=== PATIENT | female | born 1970 | race Caucasian/White ===

== ENCOUNTER 2020-08-24 16:15 | Inpatient (IN) | payer BC, OTHER ==
[2020-08-24] MEDS ORDERED: LORazepam 2 MG/ML INJ IV STA ×4 (16:43→17:45)
[2020-08-24] MEDS ORDERED: SODIUM CHLORIDE 0.9% 500 ML 500 ML IV STA (16:43)
[2020-08-24 17:03] LABS: Glucose,Whole Blood 177 mg/dL (75-99)
--- NOTE | 2020-08-24 17:14 | ED ---
Alcohol HPI <Graham Florence - Last Filed: 08/24/20 19:03> - General Source: EMS Mode of arrival: EMS Limitations: no limitations <Katia Mccall - Last Filed: 08/24/20 19:16> - General Chief Complaint: Alcohol Stated Complaint: Alcohol Withdrawal Time Seen by Provider: 08/24/20 16:30 - History of Present Illness Initial Comments: Patient is a 50-year-old female with history of alcohol abuse, thyroid disorder, presenting to the emergency department via EMS for possible EtOH withdrawal. Patient normally drinks a pint of liquor daily, her last complaint was approximately 2-3 days ago. She did have a half a beer today. He is complaining of sweating, shaking and shortness of breath for the last 2 days. She denies any fevers, no specific area pain, no chest pain, no abdominal pain. She has been nauseous, no vomiting. She denies any other drug use. She denies being secondary to hysterectomy. She has no further complaints. Upon arrival to the ER, she is afebrile, pulse is 75, respiratory rate 26, BP is elevated at 133/119, 98% on 2 L. (Katia Mccall) - Related Data Home Medications Medication Instructions Recorded Confirmed Levothyroxine Sodium [Synthroid] 100 mg PO DAILY 12/24/14 12/24/14 Baclofen [Lioresal] 10 mg PO BID PRN 08/24/20 08/24/20 Omeprazole [PriLOSEC] 40 mg PO DAILY 08/24/20 08/24/20 methocarbamoL [Robaxin] 750 mg PO TID PRN 08/24/20 08/24/20 Allergies Allergy/AdvReac Type Severity Reaction Status Date / Time No Known Allergies Allergy Verified 08/24/20 19:02 Review of Systems ROS Other: All systems not noted in ROS Statement are negative. <Graham Florence - Last Filed: 08/24/20 19:03> ROS Other: All systems not noted in ROS Statement are negative. <Katia Mccall - Last Filed: 08/24/20 19:16> ROS Statement: Those systems with pertinent positive or pertinent negative responses have been documented in the HPI. Past Medical History Past Medical History: Thyroid Disorder History of Any Multi-Drug Resistant Organisms: None Reported Past Surgical History: Hysterectomy Past Psychological History: Depression Smoking Status: Former smoker, Never smoker Past Alcohol Use History: Abuse Past Drug Use History: None Reported <Katia Mccall - Last Filed: 08/24/20 19:16> General Exam Limitations: no limitations <Katia Mccall - Last Filed: 08/24/20 19:16> - General Exam Comments Initial Comments: GENERAL: Patient has disheveled appearance, tremors, diaphoretic, and moderate distress, jaundiced appearance. HEAD: Atraumatic, normocephalic. EYES: Pupils equal round and reactive to light, extraocular movements intact, bilateral sclera icterus conjunctiva are normal. Eyelids were unremarkable. ENT: TMs normal, nares patent, oropharynx clear without exudates. Dry mucous mem branes. NECK: Normal range of motion, supple without lymphadenopathy or JVD. LUNGS: slightly rapid respirations. Breath sounds clear to auscultation bilaterally and equal. No wheezes rales or rhonchi. HEART: Tachy rate and rhythm without murmurs, rubs or gallops. ABDOMEN: Soft, nontender, normoactive bowel sounds. No guarding, no rebound. No masses appreciated. : Deferred MUSCULOSKELETAL: Normal extremities with adequate strength and normal range of motion, no pitting or edema. No clubbing or cyanosis. NEUROLOGICAL: Patient is alert and oriented x 3. Motor and sensory are also intact. Cranial nerves II through XII grossly intact. Symmetrical smile. Normal speech. PSYCH: Normal mood, normal affect. SKIN: Jaundice, Diaphoretic, Warm, normal turgor, no rashes or lesions noted. (Katia Mccall) Course Vital Signs 08/24/20 08/24/20 08/24/20 16:22 17:34 17:56 Temperature 98.7 F Pulse Rate 75 137 H 129 H Respiratory 26 H 28 H 26 H Rate Blood Pressure 133/119 149/45 124/100 O2 Sat by Pulse 98 98 100 Oximetry 08/24/20 08/24/20 18:30 19:06 Temperature 98.1 F Pulse Rate 115 H 120 H Respiratory 18 20 Rate Blood Pressure 92/56 100/73 O2 Sat by Pulse 97 97 Oximetry Medical Decision Making - Lab Data Result diagrams: 08/24/20 17:00 08/24/20 17:00 <Graham Florence - Last Filed: 08/24/20 19:03> - Lab Data Result diagrams: 08/24/20 17:00 08/24/20 17:00 <Katia Mccall - Last Filed: 08/24/20 19:16> - Medical Decision Making Patient reevaluated and reexamined by myself, Dr. Florence. I do agree with the findings. This includes diagnostic interpretation and treatment plan. Patient does have jaundice appearance with scleral icterus. No focal deficits on exam. Patient does appeared dry clinically on oral examination. Patient is oriented 3. Patient reportedly has not been feeling well for a few days and stopped eating and drinking much. Patient also stopped taking alcohol at that time. Patient presents with new-onset liver disease as well as dehydration and electrolyte abnormality. Case was discussed with Dr. Cabrera who would like to admit his patient and agrees with ICU admission. Case also discussed with Dr. Santos, who will consult. Dr. Cabrera did also request adding on CT of the abdomen pelvis. (Graham Florence) Patient is a 50-year-old female presenting to the ER via EMS for alcohol withdrawal as, she arrived diaphoretic, tremors. She is jaundice with scleral icterus. Patient's last drink was 2-3 days ago. She has not been eating or drinking. She does admit to a half a beer today. Patient required 8 mg of Ativan to stop tremors. Patient had critical labs of a lactic greater than 24, potassium is 2.7, magnesium is 1.0, chloride is 72. White count is 13.6, liver enzymes are elevated, total bilirubin is 10.6. Urine is a brown, cloudy 3+ bilirubin, many bacteria. Urine tox is negative, serum alcohol is 19, rapid Covid is positive. Chest x-ray shows some mild atelectasis, no other acute process. Patient was given a total of approximately a liter and half of fluids, started on magnesium as well as potassium, maintenance fluids. Patient will be admitted to the ICU for new-onset liver disease, hypokalemia, hypo-magnesium. Ativan protocol in place. Patient accepted by Dr. Cabrera as well as Dr. Morales. We'll also consult GI, CT of the abdomen and pelvis is pending at this time. Patient's vital signs have remained stable, she is resting comfortably. Case discussed in detail with Dr. Florence. (Katia Mccall) - Lab Data Lab Results 08/24/20 08/24/20 08/24/20 Range/Units 16:51 17:00 17:00 WBC 13.6 H (3.8-10.6) k/uL RBC 3.57 L (3.80-5.40) m/uL Hgb 12.8 (11.4-16.0) gm/dL Hct 38.9 (34.0-46.0) % MCV 108.9 H (80.0-100.0) fL MCH 35.8 H (25.0-35.0) pg MCHC 32.9 (31.0-37.0) g/dL RDW 15.5 (11.5-15.5) % Plt Count 181 (150-450) k/uL MPV 12.1 Neutrophils % (Manual) 83 % Band Neuts % (Manual) 6 % Lymphocytes % (Manual) 9 % Monocytes % (Manual) 2 % Neutrophils # (Manual) 12.10 H (1.3-7.7) k/uL Lymphocytes # (Manual) 1.22 (1.0-4.8) k/uL Monocytes # (Manual) 0.27 (0-1.0) k/uL Nucleated RBCs 0 (0-0) /100 WBC Manual Slide Review Performed Macrocytosis Marked A PT 15.6 H (9.0-12.0) sec INR 1.6 H (<1.2) APTT 30.3 H (22.0-30.0) sec Sodium (137-145) mmol/L Potassium (3.5-5.1) mmol/L Chloride (98-107) mmol/L Carbon Dioxide (22-30) mmol/L Anion Gap mmol/L BUN (7-17) mg/dL Creatinine (0.52-1.04) mg/dL Est GFR (CKD-EPI)AfAm (>60 ml/min/1.73 sqM) Est GFR (CKD-EPI)NonAf (>60 ml/min/1.73 sqM) Glucose (74-99) mg/dL POC Glucose (mg/dL) 177 H (75-99) mg/dL POC Glu Marketing Database Consultant ID Dawna Leija Plasma Lactic Acid Bull (0.7-2.0) mmol/L Calcium (8.4-10.2) mg/dL Magnesium (1.6-2.3) mg/dL Total Bilirubin (0.2-1.3) mg/dL AST (14-36) U/L ALT (4-34) U/L Alkaline Phosphatase (38-126) U/L Total Protein (6.3-8.2) g/dL Albumin (3.5-5.0) g/dL Amylase (30-110) U/L Lipase (23-300) U/L Urine Color Urine Appearance (Clear) Urine pH (5.0-8.0) Ur Specific [place] (1.001-1.035) Urine Protein (Negative) Urine Glucose (UA) (Negative) Urine Ketones (Negative) Urine Blood (Negative) Urine Nitrite (Negative) Urine Bilirubin (Negative) Urine Urobilinogen (<2.0) mg/dL Ur Leukocyte Esterase (Negative) Urine RBC (0-5) /hpf Urine WBC (0-5) /hpf Ur Squamous Epith Cells (0-4) /hpf Urine Bacteria (None) /hpf Hyaline Casts (0-2) /lpf Urine Mucus (None) /hpf Urine Opiates Screen (NotDetected) Ur Oxycodone Screen (NotDetected) Urine Methadone Screen (NotDetected) Ur Propoxyphene Screen (NotDetected) Ur Barbiturates Screen (NotDetected) U Tricyclic Antidepress (NotDetected) Ur Phencyclidine Scrn (NotDetected) Ur Amphetamines Screen (NotDetected) U Methamphetamines Scrn (NotDetected) U Benzodiazepines Scrn (NotDetected) Urine Cocaine Screen (NotDetected) U Marijuana (THC) Screen (NotDetected) Serum Alcohol mg/dL Coronavirus (PCR) (Not Detectd) 08/24/20 08/24/20 08/24/20 Range/Units 17:00 17:00 17:00 WBC (3.8-10.6) k/uL RBC (3.80-5.40) m/uL Hgb (11.4-16.0) gm/dL Hct (34.0-46.0) % MCV (80.0-100.0) fL MCH (25.0-35.0) pg MCHC (31.0-37.0) g/dL RDW (11.5-15.5) % Plt Count (150-450) k/uL MPV Neutrophils % (Manual) % Band Neuts % (Manual) % Lymphocytes % (Manual) % Monocytes % (Manual) % Neutrophils # (Manual) (1.3-7.7) k/uL Lymphocytes # (Manual) (1.0-4.8) k/uL Monocytes # (Manual) (0-1.0) k/uL Nucleated RBCs (0-0) /100 WBC Manual Slide Review Macrocytosis PT (9.0-12.0) sec INR (<1.2) APTT (22.0-30.0) sec Sodium 122 L (137-145) mmol/L Potassium 2.7 L* (3.5-5.1) mmol/L Chloride 72 L* (98-107) mmol/L Carbon Dioxide 12 L (22-30) mmol/L Anion Gap 38 mmol/L BUN 3 L (7-17) mg/dL Creatinine 0.97 (0.52-1.04) mg/dL Est GFR (CKD-EPI)AfAm 78 (>60 ml/min/1.73 sqM) Est GFR (CKD-EPI)NonAf 68 (>60 ml/min/1.73 sqM) Glucose 156 H (74-99) mg/dL POC Glucose (mg/dL) (75-99) mg/dL POC Glu Marketing Database Consultant ID Plasma Lactic Acid Bull >24.0 H* (0.7-2.0) mmol/L Calcium 8.1 L (8.4-10.2) mg/dL Magnesium 1.0 L (1.6-2.3) mg/dL Total Bilirubin 10.6 H (0.2-1.3) mg/dL AST 337 H (14-36) U/L ALT 86 H (4-34) U/L Alkaline Phosphatase 249 H (38-126) U/L Total Protein 7.4 (6.3-8.2) g/dL Albumin 4.0 (3.5-5.0) g/dL Amylase 33 (30-110) U/L Lipase 70 (23-300) U/L Urine Color Urine Appearance (Clear) Urine pH (5.0-8.0) Ur Specific [place] (1.001-1.035) Urine Protein (Negative) Urine Glucose (UA) (Negative) Urine Ketones (Negative) Urine Blood (Negative) Urine Nitrite (Negative) Urine Bilirubin (Negative) Urine Urobilinogen (<2.0) mg/dL Ur Leukocyte Esterase (Negative) Urine RBC (0-5) /hpf Urine WBC (0-5) /hpf Ur Squamous Epith Cells (0-4) /hpf Urine Bacteria (None) /hpf Hyaline Casts (0-2) /lpf Urine Mucus (None) /hpf Urine Opiates Screen (NotDetected) Ur Oxycodone Screen (NotDetected) Urine Methadone Screen (NotDetected) Ur Propoxyphene Screen (NotDetected) Ur Barbiturates Screen (NotDetected) U Tricyclic Antidepress (NotDetected) Ur Phencyclidine Scrn (NotDetected) Ur Amphetamines Screen (NotDetected) U Methamphetamines Scrn (NotDetected) U Benzodiazepines Scrn (NotDetected) Urine Cocaine Screen (NotDetected) U Marijuana (THC) Screen (NotDetected) Serum Alcohol 19 mg/dL Coronavirus (PCR) (Not Detectd) 08/24/20 08/24/20 08/24/20 Range/Units 17:55 17:55 17:55 WBC (3.8-10.6) k/uL RBC (3.80-5.40) m/uL Hgb (11.4-16.0) gm/dL Hct (34.0-46.0) % MCV (80.0-100.0) fL MCH (25.0-35.0) pg MCHC (31.0-37.0) g/dL RDW (11.5-15.5) % Plt Count (150-450) k/uL MPV Neutrophils % (Manual) % Band Neuts % (Manual) % Lymphocytes % (Manual) % Monocytes % (Manual) % Neutrophils # (Manual) (1.3-7.7) k/uL Lymphocytes # (Manual) (1.0-4.8) k/uL Monocytes # (Manual) (0-1.0) k/uL Nucleated RBCs (0-0) /100 WBC Manual Slide Review Macrocytosis PT (9.0-12.0) sec INR (<1.2) APTT (22.0-30.0) sec Sodium (137-145) mmol/L Potassium (3.5-5.1) mmol/L Chloride (98-107) mmol/L Carbon Dioxide (22-30) mmol/L Anion Gap mmol/L BUN (7-17) mg/dL Creatinine (0.52-1.04) mg/dL Est GFR (CKD-EPI)AfAm (>60 ml/min/1.73 sqM) Est GFR (CKD-EPI)NonAf (>60 ml/min/1.73 sqM) Glucose (74-99) mg/dL POC Glucose (mg/dL) (75-99) mg/dL POC Glu Marketing Database Consultant ID Plasma Lactic Acid Bull (0.7-2.0) mmol/L Calcium (8.4-10.2) mg/dL Magnesium (1.6-2.3) mg/dL Total Bilirubin (0.2-1.3) mg/dL AST (14-36) U/L ALT (4-34) U/L Alkaline Phosphatase (38-126) U/L Total Protein (6.3-8.2) g/dL Albumin (3.5-5.0) g/dL Amylase (30-110) U/L Lipase (23-300) U/L Urine Color Dark Brown Urine Appearance Cloudy H (Clear) Urine pH 5.5 (5.0-8.0) Ur Specific [place] 1.015 (1.001-1.035) Urine Protein 1+ H (Negative) Urine Glucose (UA) Negative (Negative) Urine Ketones Negative (Negative) Urine Blood Moderate H (Negative) Urine Nitrite Negative (Negative) Urine Bilirubin 3+ H (Negative) Urine Urobilinogen 8.0 (<2.0) mg/dL Ur Leukocyte Esterase Small H (Negative) Urine RBC 1 (0-5) /hpf Urine WBC 59 H (0-5) /hpf Ur Squamous Epith Cells 2 (0-4) /hpf Urine Bacteria Many H (None) /hpf Hyaline Casts 215 H (0-2) /lpf Urine Mucus Occasional H (None) /hpf Urine Opiates Screen Not Detected (NotDetected) Ur Oxycodone Screen Not Detected (NotDetected) Urine Methadone Screen Not Detected (NotDetected) Ur Propoxyphene Screen Not Detected (NotDetected) Ur Barbiturates Screen Not Detected (NotDetected) U Tricyclic Antidepress Not Detected (NotDetected) Ur Phencyclidine Scrn Not Detected (NotDetected) Ur Amphetamines Screen Not Detected (NotDetected) U Methamphetamines Scrn Not Detected (NotDetected) U Benzodiazepines Scrn Not Detected (NotDetected) Urine Cocaine Screen Not Detected (NotDetected) U Marijuana (THC) Screen Not Detected (NotDetected) Serum Alcohol mg/dL Coronavirus (PCR) Detected A (Not Detectd) Critical Care Time Critical Care Time: Yes Total Critical Care Time: 40 (Alcohol withdrawal, presented with severe tremors, requiring 8 of Ativan, lactic acidosis of greater than 24, hypokalemia, hypo- magnesium, patient was admitted to the ICU.) <Katia Mccall - Last Filed: 08/24/20 19:16> Disposition <Graham Florence - Last Filed: 08/24/20 19:03> Decision Date: 08/24/20 Decision Time: 19:07 <Katia Mccall - Last Filed: 08/24/20 19:16> Clinical Impression: Hypomagnesemia, Alcohol withdrawal syndrome, Hypokalemia, Lactic acidosis, COVID-19 Disposition: ADMITTED IP TO THIS [facility] Condition: Fair Referrals: Matt Ch Jr, DO [Primary Care Provider] - 1-2 days
[2020-08-24 17:22] LABS: Calcium 8.1 mg/dL (8.4-10.2); Total Bilirubin 10.6 mg/dL (0.2-1.3); Total Protein 7.4 g/dL (6.3-8.2)
[2020-08-24 17:29] LABS: INR 1.6 (<1.2); Partial Thromboplastin Time 30.3 sec (22.0-30.0); Prothrombin Time 15.6 sec (9.0-12.0)
[2020-08-24 17:31] LABS: Potassium 2.7 mmol/L (3.5-5.1)
[2020-08-24] MEDS ORDERED: SODIUM CHLORIDE 0.9% 1,000 ML IV STA (17:35)
[2020-08-24 17:40] LABS: HCT 38.9 % (34.0-46.0); HGB 12.8 gm/dL (11.4-16.0); MCH 35.8 pg (25.0-35.0); MCHC 32.9 g/dL (31.0-37.0); MCV 108.9 fL (80.0-100.0); Macrocytosis Marked; Mean Platelet Volume 12.1; Platelet Count 181 k/uL (150-450); RBC 3.57 m/uL (3.80-5.40); RDW 15.5 % (11.5-15.5); WBC 13.6 k/uL (3.8-10.6)
[2020-08-24] MEDS: POTASSIUM CHLORIDE 20 MEQ in WATER FOR INJECTION 1 100ML.BAG IVPB SCH ×2 (17:47→20:33)
[2020-08-24 18:01] LABS: Band Neutrophils % 6 %; Lymphocytes # (M) 1.22 k/uL (1.0-4.8); Monocytes # (M) 0.27 k/uL (0-1.0); Neutrophils % (M) 83 %; Nucleated Red Blood Cells 0 /100 WBC (0-0); Total Cells Counted 100
[2020-08-24 18:17] LABS: Appearance,Urine Cloudy (Clear); Bacteria,Urine Many /hpf; Bilirubin,Urine 3+ (Negative); Blood,Urine Moderate (Negative); Color,Urine Dark Brown; Glucose,Urine (UA) Negative (Negative); Hyaline Casts,Urine 215 /lpf (0-2); Ketones,Urine Negative (Negative); Leukocyte Esterase,Urine Small (Negative); Mucus,Urine Occasional /hpf; Nitrite,Urine Negative (Negative); PH, Urine 5.5 (5.0-8.0); Protein,Urine 1+ (Negative); RBC,Urine 1 /hpf (0-5); Specific Gravity,Urine 1.015 (1.001-1.035); Squamous Epithelial Cell,Urine 2 /hpf (0-4); WBC,Urine 59 /hpf (0-5)
[2020-08-24 18:39] LABS: Amphetamine Screen,Urine Not Detected (NotDetected); Barbiturate Screen,Urine Not Detected (NotDetected); Benzodiazepines Screen,Urine Not Detected (NotDetected); Cocaine Screen,Urine Not Detected (NotDetected); Methadone Screen, Urine Not Detected (NotDetected); Opiate Screen,Urine Not Detected (NotDetected); Oxycodone Screen, Urine Not Detected (NotDetected); Phencyclidine Screen,Urine Not Detected (NotDetected); Tricyclic Antidepressant,Urine Not Detected (NotDetected); Urn Cannabinoid Scrn Not Detected (NotDetected)
[2020-08-24] MEDS ORDERED: Magnesium Replacement Protocol 1 EACH MISC MISCELLANE PRN (18:39)
--- NOTE | 2020-08-24 18:41 | XR ---
EXAMINATION TYPE: XR chest 1V DATE OF EXAM: 08/24/2020 COMPARISON: 12/24/2014 HISTORY: Short of breath There is some elevation of the right diaphragm. There is no heart failure. Heart size is normal. Ther e are chest leads. Bony thorax is intact. IMPRESSION: There is new mild atelectasis right lung base compared to old exam. No heart failure.
[2020-08-24] MEDS ORDERED: NALOXONE 0.4 MG/ML 1 ML VIAL IV PRN (19:00)
[2020-08-24] MEDS: MAGNESIUM SULFATE-D5W PMX 1 GM in DEXTROSE/WATER 1 100ML.BAG IVPB SCH ×3 (19:06→23:14)
[2020-08-24] MEDS ORDERED: THIAMINE 100 MG/ML 2 ML VIAL IM STA (19:06)
[2020-08-24] MEDS ORDERED: LORazepam 2 MG/ML INJ IV PRN (19:06)
--- NOTE | 2020-08-24 20:08 | CT ---
EXAMINATION TYPE: CT abdomen pelvis w con DATE OF EXAM: 08/24/2020 COMPARISON: 07/20/2012 HISTORY: abdominal pain, liver failure CT DLP: 947 mGycm Automated exposure control for dose reduction was used. CONTRAST: Performed with IV Contrast, patient injected with 100 mL of Isovue 300. Images obtained from the diaphragm to the floor the pelvis with IV contrast. There is mild interstitial infiltrate and subsegmental atelectasis at the lung bases. Heart size is n ormal. There is no pericardial effusion. There is significant hypodensity throughout the liver related to fatty infiltration. Spleen is intact . Stomach is intact. There is no evidence of pancreatic mass. Gallbladder appears normal. There is no adrenal mass. Knee show satisfactory contrast opacification. There is no hydronephrosis. Delayed images show very little contrast excretion into the renal collecting systems. There is no ret roperitoneal adenopathy. Ureters are not dilated. There is Gonzalez catheter in the urinary bladder. The re is no inguinal hernia. There is no mesenteric edema. There is no ascites or free air. Appendix is posterior and appears norm al. There is no sign of a bowel obstruction. There is minimal stranding in the paracolic gutters. The lumbar vertebra have normal alignment. There is no compression fracture. The bony pelvis is intact. Hip joints are intact. IMPRESSION: Significant fatty replacement of the liver which is a change compared to old exam. Minimal fluid in t he paracolic gutters. Normal appendix. Decreased contrast excretion on the delayed images that is suggestive of some degree of renal failure . There is interstitial infiltrates and atelectasis at the lung bases which is new compared to old exam .
[2020-08-24 20:19] LABS: Glucose,Whole Blood 144 mg/dL (75-99)
[2020-08-24] MEDS: SODIUM CHLORIDE 0.9% 1,000 ML IV SCH (20:32)
--- NOTE | 2020-08-24 22:10 | CT ---
EXAMINATION TYPE: CT brain wo con DATE OF EXAM: 08/24/2020 COMPARISON: None HISTORY: ams, slurred speech CT DLP: 1099.4 mGycm Automated exposure control for dose reduction was used. Ventricles have normal size. There is no mass effect nor midline shift. There is no sign of intracran ial hemorrhage. There is some mild white matter hypodensity in the sub cortical cerebral hemispheres. IMPRESSION: No acute intracranial abnormality. Mild white matter hypodensity could relate to chronic small vessel ischemia or demyelinating disease.
[2020-08-24] MEDS ORDERED: MAGNESIUM SULFATE-D5W PMX 1 GM in DEXTROSE/WATER 1 100ML.BAG IVPB ONE (23:15)
[2020-08-24] MEDS: LORazepam 2 MG/ML INJ IV PRN (23:37)
[2020-08-25 03:23] LABS: ALT 70 U/L (4-34); AST 285 U/L (14-36); African American GFR (CKD) >90 (>60 ml/min/1.73 sqM); Albumin 2.9 g/dL (3.5-5.0); Alkaline Phosphatase 185 U/L (38-126); Anion Gap 7 mmol/L; Blood Urea Nitrogen 3 mg/dL (7-17); C Reactive Protein 25.1 mg/L (<10.0); Carbon Dioxide 34 mmol/L (22-30); Chloride 83 mmol/L (98-107); Creatine Kinase 922 U/L (30-135); GGT 1220 U/L (12-43); Glucose 96 mg/dL (74-99); LDH 1119 U/L (313-618); Magnesium 1.9 mg/dL (1.6-2.3); Non-African American GFR(CKD) >90 (>60 ml/min/1.73 sqM); Sodium 124 mmol/L (137-145); Total Bilirubin 9.6 mg/dL (0.2-1.3)
[2020-08-25 03:34] LABS: Potassium 2.1 mmol/L (3.5-5.1)
[2020-08-25 03:38] LABS: Basophils # (A) 0.1 k/uL (0-0.2); Basophils % (A) 1 %; Eosinophils % (A) 1 %; HCT 29.6 % (34.0-46.0); HGB 10.6 gm/dL (11.4-16.0); Lymphocytes # (A) 1.1 k/uL (1.0-4.8); Lymphocytes % (A) 16 %; MCH 37.1 pg (25.0-35.0); MCHC 35.9 g/dL (31.0-37.0); Macrocytosis Slight; Mean Platelet Volume 10.4; Monocytes # (A) 0.3 k/uL (0-1.0); Monocytes % (A) 4 %; Neutrophils # (A) 5.5 k/uL (1.3-7.7); Neutrophils % (A) 77 %; RBC 2.86 m/uL (3.80-5.40); RDW 14.9 % (11.5-15.5); WBC 7.1 k/uL (3.8-10.6)
[2020-08-25 03:41] LABS: MCV 103.4 fL (80.0-100.0); Platelet Count 132 k/uL (150-450)
[2020-08-25] MEDS ORDERED: Potassium Replacement Protocol 1 EACH MISC MISCELLANE PRN ×2 (03:42→16:51)
[2020-08-25] MEDS: POTASSIUM CHLORIDE 10 MEQ in WATER FOR INJECTION 1 100ML.BAG IVPB SCH ×11 (03:48→23:26)
[2020-08-25] MEDS: MAGNESIUM SULFATE-D5W PMX 1 GM in DEXTROSE/WATER 1 100ML.BAG IVPB SCH ×2 (04:23→05:00)
[2020-08-25] MEDS: THIAMINE 100 MG TAB PO SCH ×2 (07:11→17:19)
[2020-08-25] MEDS: SODIUM CHLORIDE 0.9% 1,000 ML IV SCH ×2 (08:04→21:14)
[2020-08-25] MEDS: LORazepam 2 MG/ML INJ IV PRN (08:04)
[2020-08-25] MEDS: MORPHINE SULFATE 2 MG/ML SYRINGE IV PRN ×3 (08:47→17:21)
[2020-08-25] MEDS: PANTOPRAZOLE 40 MG/10 ML VIAL IVP SCH ×2 (10:40→21:12)
[2020-08-25] MEDS: LEVOTHYROXINE IVP 100 MCG/5 ML VIAL IV SCH (10:40)
[2020-08-25] MEDS: ENOXAPARIN 30 MG/0.3 ML SYRINGE SQ SCH (10:40)
--- NOTE | 2020-08-25 10:45 | P.CNNES ---
History of Present Illness Consult date: 08/25/20 Requesting physician: Matt Ch Jr Reason for Consult: altered mental status History of Present Illness: This is a 50-year-old woman with medical history of all call abuse and hypothyroidism that presented emergency department on 08/24/2020 for possible alcohol withdrawal. Patient stated she drinks alcohol for years. She drinks a pint of liquor daily and her last drink was about to 2-3 days ago. She came into the hospital complaining of sweating, shaken and shortness of breath for the last 2 days. He has been feeling nauseous but no vomiting. Patient denies of any fever. According to the nurse her felt she was having slurring of the speech recently. She has not had any seizure-like activity. Patient stated she is on Synthroid for her hypothyroidism and sometimes taking Robaxin for muscle stiffness but could not tell me where. Otherwise she denies focal weakness, numbness or visual disturbance. Upon asking her if she felt she is having slurring of speech she couldn't tell me. She denies being on antiplatelets or statins. Workup in the hospital consisted of: Initial vital signs are: Blood pressure of 133/119, heart rate of 75, respiratory of 26, temperature of 88.7 Fahrenheit axillary and the pulse ox is 98% on 2 L of nasal cannula. Since the patient has been the hospital the p atient has been afebrile. CT of the head is reported as no acute intracranial abnormality. Mild white matter hypodensity could relate to chronic small vessel ischemia or edema disease. His x-rays reported as there is a new mild atelectasis right lung base compared to old exam. Heart failure. CT of the abdomen is reported as significant fatty replacement of the liver which is a change compared to old exam. Minimal fluid in the pair: Daughters. Normal appendix. Decreased contrast and excretion on the delayed images that is suggestive of some degree of renal failure. There is interstitial infiltrates and atelectasis at the lung base which is new compared to old exam. White blood cell is 13.6 on initial presentation is seems neutrophilic but repeated was 7.1. MCV is 108 and the repeat his 103 which is elevated. On initial presentation the patient sodium is 122 and the repeated today is 124 which is low system normal range is 137-145. The last sodium in our record is in 2014 and was normal and was 137. Potassium on presentation was 2.7. Glucose POC initially was 177. Plasma lact ic acid the vein was more than 24. The meclizine is low and it was 1.0. AST is 337 and the ALTs 86. Alcohol phosphatase is 249. Ammonia level. Calcium is 8.1. The total bilirubin is 10.6. Serum alcohol level was 19 is elevated but not in the toxic range. Otherwise the urine drug screen is negative. Ivey virus PCR is detected positive on 08/24/2020. In the ED the patient was given 8 milligrams of Ativan because of alcohol withdrawal Past Medical History Past Medical History: Hypertension, Thyroid Disorder History of Any Multi-Drug Resistant Organisms: None Reported Past Surgical History: Hysterectomy Past Anesthesia/Blood Transfusion Reactions: No Reported Reaction Past Psychological History: Depression Smoking Status: Former smoker Past Alcohol Use History: Abuse Past Drug Use History: None Reported Medications and Allergies Home Medications Medication Instructions Recorded Confirmed Type Levothyroxine Sodium [Synthroid] 100 mg PO DAILY 12/24/14 08/24/20 History Baclofen [Lioresal] 10 mg PO BID PRN 08/24/20 08/24/20 History Omeprazole [PriLOSEC] 40 mg PO DAILY 08/24/20 08/24/20 History methocarbamoL [Robaxin] 750 mg PO TID PRN 08/24/20 08/24/20 History Allergies Allergy/AdvReac Type Severity Reaction Status Date / Time No Known Allergies Allergy Verified 08/24/20 19:02 Physical Examination - Vital Signs Vital Signs: Vital Signs Temp Pulse Resp BP Pulse Ox 08/25/20 09:00 97 22 90/68 94 L 08/25/20 08:00 97.5 F L 100 14 100/75 93 L 08/25/20 07:00 98 18 112/67 94 L 08/25/20 06:30 98 20 110/78 95 08/25/20 06:00 85 24 99/73 94 L 08/25/20 05:30 97 24 103/72 91 L 08/25/20 05:00 100 20 103/70 99 08/25/20 04:30 94 25 H 90/53 96 08/25/20 04:00 98.3 F 109 H 10 L 93/66 94 L 08/25/20 03:30 101 H 12 91/71 95 08/25/20 03:00 96 14 90/55 94 L 08/25/20 02:30 95 9 L 98/64 96 08/25/20 02:00 98 12 91/63 96 08/25/20 01:30 97 19 108/94 96 08/25/20 01:00 86 12 94/62 96 08/25/20 00:30 100 20 97/61 96 08/25/20 00:03 100 21 97/61 95 08/25/20 00:00 98.0 F 100 15 101/66 96 08/24/20 23:46 97 08/24/20 23:30 114 H 20 95 08/24/20 23:00 102 H 20 96/68 98 08/24/20 22:30 107 H 13 90/66 96 08/24/20 22:00 102 H 14 105/91 94 L 08/24/20 21:30 97 20 97/67 100 08/24/20 21:00 98.3 F 101 H 19 140/119 97 08/24/20 20:30 108 H 21 98/73 91 L 08/24/20 19:06 98.1 F 120 H 20 100/73 97 08/24/20 18:30 115 H 18 92/56 97 08/24/20 17:56 129 H 26 H 124/100 100 08/24/20 17:34 137 H 28 H 149/45 98 08/24/20 16:22 98.7 F 75 26 H 133/119 98 Intake and Output 08/24/20 08/25/20 08/25/20 22:59 06:59 14:59 Intake Total 625 1100 350 Output Total 350 1350 250 Balance 275 -250 100 Intake: IV 625 1100 350 Magnesium Sulfate-D5w Pmx 200 200 1 gm In Dextrose/Water 1 100ml.bag @ 100 mls/hr IVPB Q1H KANDICE Rx#: [id number] Potassium Chloride 10 meq 300 200 In Water For Injection 1 100ml.bag @ 100 mls/hr IVPB Q1HR KANDICE Rx#: [id number] Potassium Chloride 20 meq 200 In Water For Injection 1 100ml.bag @ 50 mls/hr IVPB Q2H KANDICE Rx#: [id number] Sodium Chloride 0.9% 1, 225 600 150 000 ml @ 75 mls/hr IV . [id number] KANDICE Rx#:[id number] Output: Urine 350 1350 250 Other: Voiding Method Indwelling Catheter Indwelling Catheter Indwelling Catheter Weight 65.2 kg 65.2 kg GENERAL: The patient is lying in bed and is not in acute distress. She seemed mildly restless. HENT: Has scleral ictereus bilaterally. CHEST: The heart rate is regular rate rhythm. No murmurs to auscultation. LUNG: Clear to auscultation bilaterally no wheezing noted throughout. Not labored breathing. ABDOMEN/GI: Bowel sounds present in all 4 quadrants. No tenderness to palpation throughout. NEUROLOGICAL: Higher mental function: The patient is awake, alert, oriented to self, place. She knows the month but not year (she stated it was 1999 and later it was 2000. Patient is following simple commands but is slowing in following commands. No aphasia and no neglect. Cranial nerves: The pupils are round, equal and reactive to light. Visual monge are full to confrontation throughout. Extraocular movement is intact no nystagmus is noted. Facial sensation is normal to touch throughout. The facial strength is normal throughout. Hearing is normal bilaterally to hand rub. Tongue is midline and moved [id number] without any difficulty. Has mild dysarthria (Not sure if this is new or thats her baseline and patient couldn't tell me). Motor: Gait is deferred. The strength is moving all extremities above gravity and her strength was at least 4/5 but could not assess each individual muscle because of her cooperation. Normal tone and bulk. She has seemed to have mild tremors of bilateral hands. Cerebellum: Normal finger to nose bilaterally. Sensation: Sensation is normal to touch throughout. Reflexes (right/left): 2+ throughout. Plantars are downgoing bilaterally. Results Urinalysis shows that it's cloudy, nitrates negative, leukocyte esterase was small, urine white blood cell is 59, urine bacteria is many. Prognosis study: PT is 15.6, INR 1.6, PTT of 30.3. - Laboratory Findings CBC and BMP: 08/25/20 02:48 08/25/20 02:48 Abnormal Lab Findings: Abnormal Labs 08/24/20 08/24/20 08/24/20 16:51 17:00 17:00 WBC 13.6 H RBC 3.57 L Hgb Hct MCV 108.9 H MCH 35.8 H Plt Count Neutrophils # (Manual) 12.10 H Macrocytosis Marked A PT 15.6 H INR 1.6 H APTT 30.3 H Sodium Potassium Chloride Carbon Dioxide BUN Glucose POC Glucose (mg/dL) 177 H Plasma Lactic Acid Bull Calcium Magnesium Total Bilirubin GGT AST ALT Alkaline Phosphatase Ammonia Lactate Dehydrogenase Creatine Kinase C-Reactive Protein Total Protein Albumin Urine Appearance Urine Protein Urine Blood Urine Bilirubin Ur Leukocyte Esterase Urine WBC Urine Bacteria Hyaline Casts Urine Mucus Coronavirus (PCR) 08/24/20 08/24/20 08/24/20 17:00 17:00 17:00 WBC RBC Hgb Hct MCV MCH Plt Count Neutrophils # (Manual) Macrocytosis PT INR APTT Sodium 122 L Potassium 2.7 L* Chloride 72 L* Carbon Dioxide 12 L BUN 3 L Glucose 156 H POC Glucose (mg/dL) Plasma Lactic Acid Bull >24.0 H* Calcium 8.1 L Magnesium 1.0 L Total Bilirubin 10.6 H GGT AST 337 H ALT 86 H Alkaline Phosphatase 249 H Ammonia Lactate Dehydrogenase Creatine Kinase C-Reactive Protein Total Protein Albumin Urine Appearance Urine Protein Urine Blood Urine Bilirubin Ur Leukocyte Esterase Urine WBC Urine Bacteria Hyaline Casts Urine Mucus Coronavirus (PCR) 08/24/20 08/24/20 08/24/20 17:55 17:55 18:18 WBC RBC Hgb Hct MCV MCH Plt Count Neutrophils # (Manual) Macrocytosis PT INR APTT Sodium Potassium Chloride Carbon Dioxide BUN Glucose POC Glucose (mg/dL) Plasma Lactic Acid Bull Calcium Magnesium Total Bilirubin GGT AST ALT Alkaline Phosphatase Ammonia 44 H Lactate Dehydrogenase Creatine Kinase C-Reactive Protein Total Protein Albumin Urine Appearance Cloudy H Urine Protein 1+ H Urine Blood Moderate H Urine Bilirubin 3+ H Ur Leukocyte Esterase Small H Urine WBC 59 H Urine Bacteria Many H Hyaline Casts 215 H Urine Mucus Occasional H Coronavirus (PCR) Detected A 08/24/20 08/24/20 08/24/20 18:37 19:31 20:17 WBC RBC Hgb Hct MCV MCH Plt Count Neutrophils # (Manual) Macrocytosis PT INR APTT Sodium Potassium Chloride Carbon Dioxide BUN Glucose POC Glucose (mg/dL) 144 H Plasma Lactic Acid Bull 11.9 H* Calcium Magnesium Total Bilirubin GGT AST ALT Alkaline Phosphatase Ammonia Lactate Dehydrogenase Creatine Kinase C-Reactive Protein 20.8 H Total Protein Albumin Urine Appearance Urine Protein Urine Blood Urine Bilirubin Ur Leukocyte Esterase Urine WBC Urine Bacteria Hyaline Casts Urine Mucus Coronavirus (PCR) 08/24/20 08/25/20 08/25/20 23:27 02:48 02:48 WBC RBC 2.86 L Hgb 10.6 L Hct 29.6 L MCV 103.4 H D MCH 37.1 H Plt Count 132 L Neutrophils # (Manual) Macrocytosis PT INR APTT Sodium 124 L Potassium 2.1 L* Chloride 83 L Carbon Dioxide 34 H BUN 3 L Glucose POC Glucose (mg/dL) Plasma Lactic Acid Bull 3.2 H* Calcium 7.0 L Magnesium Total Bilirubin 9.6 H GGT 1220 H AST 285 H ALT 70 H Alkaline Phosphatase 185 H Ammonia Lactate Dehydrogenase 1119 H Creatine Kinase 922 H C-Reactive Protein 25.1 H Total Protein 6.0 L Albumin 2.9 L Urine Appearance Urine Protein Urine Blood Urine Bilirubin Ur Leukocyte Esterase Urine WBC Urine Bacteria Hyaline Casts Urine Mucus Coronavirus (PCR) 08/25/20 08:32 WBC RBC Hgb Hct MCV MCH Plt Count Neutrophils # (Manual) Macrocytosis PT INR APTT Sodium Potassium Chloride Carbon Dioxide BUN Glucose POC Glucose (mg/dL) Plasma Lactic Acid Bull Calcium Magnesium Total Bilirubin GGT AST ALT Alkaline Phosphatase Ammonia 37 H Lactate Dehydrogenase Creatine Kinase C-Reactive Protein Total Protein Albumin Urine Appearance Urine Protein Urine Blood Urine Bilirubin Ur Leukocyte Esterase Urine WBC Urine Bacteria Hyaline Casts Urine Mucus Coronavirus (PCR) Assessment and Plan Assessment: This is a 50-year-old woman with a significant alcohol use, drinks about a pint of liquor daily and the last drink was about to 3 days ago presented to the emergency department on 08/24/2020 for sweating, feeling shaken and shortness of breath the last 2 days. She's also been feeling nauseous but no vomiting. Toxic metabolic encephalopathy due to alcohol withdrawal, medication use (Ativan) and also due to electrolyte imbalance from the alcohol use (her altered mental status seems mild). Dysarthria (not sure if this is acute or thats her baseline) Hyponatremia due to alcohol abuse Macrocytosis due to alcohol abuse Multiple Electrolyte imbalance (hypokalemia, hypomagnesemia, hyponatremia) due to alcohol use Diaphoresis, tremor of the extremities and shortness of breath due to alcohol withdrawal Jaundice with scleral icterus due to alcohol abuse Elevated liver function tests due to alcohol abuse Pulmonary distress due to positive coated 19 as well as a component of the alcohol withdrawal Alcohol abuse with last drink about 2 days ago History of hypothyroidism Plan: Patient was given thiamine 100 mg once in the ED then was started on 100 mg 1 tablet twice a day and that's to be continued. I ordered vitamin B12 as well as folate levels/ I'll start the patient on vitamin B12 1000 g daily and folate 1 mg daily especially with a macrocytosis likely due to alcohol use. Ammonia level is ordered as a repeat for tomorrow. Regarding the dysarthria not sure if this is the patient baseline the OR this is a new. I ordered carotid duplex and lipid profile. I asked the nurse that if she gets a hold of the patient's to find out whether this is the way she talks and if it's different one of the possibilities is a because of the alcohol withdrawal another possibly a cannot rule out as a stroke. Will consider getting MRI of the brain upon the patient being stable lie flat for the MRI. I will not start the patient on aspirin or statins because stroke is not the top of my differential. As well as the hair LFTs are elevated so we'll hold off on using statins for now until her LFTs stabilize. An EEG is not warranted at this time since the patient does not have any seizure her mentation is likely toxic metabolic encephalopathy. Patient is on CIWA protocol will defer the management to the ICU as well as the primary team. Regarding the correction of the hyponatremia will defer the management to the ICU/primary team. Regarding the electrolyte imbalance would defer the management to the primary team. Patient was counseled on alcohol cessation. The plan was discussed with the patient's nurse. Thank you for the consultation. Mekhi Jorgensen M.D. Neuro-hospitalist Time with Patient: Greater than 30
--- NOTE | 2020-08-25 10:50 | CONS ---
CONSULTATION PULMONARY/CRITICAL CARE CONSULTATION: DATE OF CONSULTATION: August 25, 2020. REASON FOR CONSULTATION: Alcoholic liver disease. 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 She has a history of chronic alcohol use and chronic alcohol abuse, hypothyroidism, among other issues, as well as depression, who presents to the emergency department with possible alcohol withdrawal syndrome and alcoholic liver disease. The patient normally drinks about a pint of [place] hercules every day. She states that her last drink actually was yesterday. She drank half a beer. She came in with complaints of sweating, shaking, shortness of breath, just not feeling well. No chest pain or chest discomfort. No fevers. She does have a productive cough. The patient apparently tested positive for COVID-19 infection on August 23. She does have a history of hypothyroidism for which she takes Synthroid. The patient was evaluated in the emergency room. I was called by the emergency room physician. The patient was admitted to the ICU. I do remember this patient quite well. She used to be a nurse here in our ICU. Subsequent to that, she became a hemodialysis nurse. Her primary is Dr. Matt Ch, but she sees a nurse practitioner in Dr. Ch's office, not him. The patient had a number of abnormalities on admission, including hyperbilirubinemia, lactic acidemia, and profound electrolyte disturbance. The patient did receive some saline in the emergency room 2 L and some Ativan 8 mg. Currently, she is on 4 L nasal cannula and 0.9 at 75 mL an hour. HOME MEDICATIONS: Home medications include levothyroxine, Lioresal, omeprazole and Robaxin. ALLERGIES: Denied. MEDICAL HISTORY: Medical history includes hypothyroidism. SURGICAL HISTORY: Surgical history includes hysterectomy. SOCIAL HISTORY: Positive for previous tobacco use. Does not smoke currently. Drinks heavily currently. Denies any illicit drug use. As I mentioned, drinks about a pint of [place] hercules a day. FAMILY HISTORY: Noncontributory. REVIEW OF SYSTEMS: CONSTITUTIONAL: Weakness, tremors, shakes. NEUROLOGIC: Lightheadedness and dizziness, unsteadiness. HEENT: Negative. CARDIOVASCULAR: Negative. PULMONARY: Cough with chest congestion. GI: Nausea without vomiting. : Negative. IMMUNOLOGIC: Negative. ENDOCRINOLOGIC: Negative. DERMATOLOGIC: Negative. RHEUMATOLOGIC: Negative. PHYSICAL EXAMINATION: VITAL SIGNS: Current vital signs are reviewed. They include temperature 97.5, heart rate 100, respiratory rate 22, blood pressure 90/68, mean 75 and 4 L saturation 94%. GENERAL: Appears in no acute distress. HEENT: Examination is grossly unremarkable. Mucous membranes are dry. Nasal O2 noted. NECK: Supple. Full range of motion. No adenopathy. Neck veins are flat. CARDIOVASCULAR: Examination reveals tachycardia. Heart rate about 100 beats per minute. It is regular. S1, S2 normal. LUNGS: Reveal some coarse rhonchi. ABDOMEN: Is mildly distended. Mild tenderness on palpation. EXTREMITIES: Are intact. No edema. SKIN: Without rash. NEUROLOGIC: Examination is brief but nonfocal. She does have a slight tremor. LABS: Labs are reviewed. White count 7.1, hemoglobin 10.6, hematocrit 29.6, platelet count 132,000. PT 15.6, INR 1.6, PTT 30.3. Sodium 124, potassium 2.1, chloride 83 CO2 of 34. Anion gap 7. BUN and creatinine were 3 and 0.63. Lactic acid is down to 1.5. Calcium 7. Bilirubin is 9.6, GGT 1220, AST 285, ALT 70, alkaline phosphatase 185. Ammonia level 37. LDH is 1119. CK 922. C-reactive protein 25.1. Urine is 3+ bilirubin, small leukocyte esterase, many bacteria. Urine is cloudy and dark brown. Drug screen was negative. COVID test was positive. Serum alcohol level was 19. Microbiology is pending or negative. Chest x-ray revealed some minimal atelectasis at the lung bases right greater than left. Abdominal and pelvic CT shows significant fatty replacement of the liver, which is a new finding. Also some interstitial infiltrates at the lung bases, which is a new finding. A brain CT showed no acute abnormality. CURRENT MEDICATIONS: Current medications are reviewed. She is on Ativan per CIWA protocol, magnesium replacement, potassium replacement, p.r.n. morphine, Narcan, and her saline at 75 mL an hour along with thiamine. ASSESSMENT: 1. Severe alcoholic liver disease and probable alcoholic cirrhosis. 2. Chronic alcohol abuse, drinking 1 pint of [place] daily. 3. Lactic acidemia, improved. 4. Hyperbilirubinemia/jaundice. 5. Profound electrolyte disturbance including hypomagnesemia, hypokalemia, hyponatremia. 6. Rule out alcohol withdrawal syndrome. 7. Hypothyroidism. 8. Chronic depression. 9. Thrombocytopenia secondary to alcoholic liver disease. 10.Chronic anemia. 11.Coagulopathy of chronic liver disease. 12.Hyperammonemia. 13.Rule out urinary tract infection. PLAN: The patient will get some IV antibiotics. In addition, we will place the patient on DVT and GI prophylaxis. Additional recommendations and suggestions are forthcoming. Prognosis is guarded. We will watch closely for alcohol withdrawal syndrome and alcoholic delirium tremens. Will add back some Synthroid. No additional recommendations are made. Prognosis is guarded. MMODL / IJN: [id number] /
[2020-08-25 10:56] LABS: Ferritin 3369.4 ng/mL (10.0-291.0)
[2020-08-25] MEDS: FOLIC ACID 1 MG TAB PO SCH (11:47)
[2020-08-25] MEDS: CYANOCOBALAMIN 500 MCG TAB PO SCH (11:47)
--- NOTE | 2020-08-25 12:50 | US ---
EXAMINATION TYPE: US carotid duplex BILAT DATE OF EXAM: 08/25/2020 COMPARISON: NONE CLINICAL HISTORY: slurred speech rule out stroke. EXAM MEASUREMENTS: RIGHT: Peak Systolic Velocity (PSV) cm/sec ----- Right CCA: 60.6 ----- Right ICA: 48.2 ----- Right ECA: 69.3 ICA/CCA ratio: 0.8 RIGHT: End Diastole cm/sec ----- Right CCA: 12.9 ----- Right ICA: 11.7 ----- Right ECA: 11.8 LEFT: Peak Systolic Velocity (PSV) cm/sec ----- Left CCA: 63.4 ----- Left ICA: 43.6 ----- Left ECA: 54.1 ICA/CCA ratio: 0.7 LEFT: End Diastole cm/sec ----- Left CCA: 13.2 ----- Left ICA: 14.0 ----- Left ECA: 12.8 VERTEBRALS (direction of flow): Right Vertebral: Antegrade Left Vertebral: Antegrade Rhythm: Normal No significant stenosis grayscale, color Doppler, spectral Doppler imaging performed of the carotid a rteries. Waveform analysis does not show significant stenosis of the internal carotid arteries. IMPRESSION: No hemodynamic significant stenosis of the proximal internal carotid arteries by Doppler criteria, an indirect measurement of carotid stenosis Criteria for Assigning % of Stenosis / Diameter reduction (Estimation based on the indirect measurements of the internal carotid artery velocities (ICA PSV). 1. Normal (no stenosis)=ICA PSV < 125 cm/s: ratio < 2.0: ICA EDV<40 cm/s. 2. Less than 50% stenosis=ICA PSV < 125 cm/s: ratio < 2.0: ICA EDV<40 cm/s. 3. 50 to 69% stenosis=ICA PSV of 125 to 230 cm/s: ration 2.0 ? 4.0: ICA EDV 40-100 cm/s. 4. Greater than 70% stenosis to near occlusion= ICA PSV > 230 cm/s: ratio > 4.0: ICA EDV > 100 cm/s. 5. Near occlusion= ICA PSV velocities may be low or undetectable: variable ratio and ICA EDV. 6. Total occlusion=unable to detect flow.
--- NOTE | 2020-08-25 19:40 | P.HPIM ---
History of Present Illness H&P Date: 08/25/20 Chief Complaint: etoh, abuse, possitive covid 19 virus pt became hypoxic, at home heavy daily etoh user, pt stopped drinking once she realised, she was covid pos. also lactid acid poss scleral icteris elevated liver enzymes Review of Systems Constitutional: Reports fatigue, Reports night sweats, Reports sweats, Reports weakness Ears, nose, mouth and throat: Reports sore throat, Reports voice changes Breasts: right: change in shape Cardiovascular: Reports as per HPI Respiratory: Reports congestion, Reports cough, Reports wheezing Gastrointestinal: Reports as per HPI Genitourinary: Reports as per HPI Menstruation: Reports period normal Musculoskeletal: Reports as per HPI Integumentary: Reports as per HPI Neurological: Reports weakness Psychiatric: Reports hypersomnia (etoh daily) Endocrine: Reports as per HPI (hypothyroidism) Past Medical History Past Medical History: Hypertension, Thyroid Disorder History of Any Multi-Drug Resistant Organisms: None Reported Past Surgical History: Hysterectomy Past Anesthesia/Blood Transfusion Reactions: No Reported Reaction Past Psychological History: Depression Smoking Status: Former smoker Past Alcohol Use History: Abuse Past Drug Use History: None Reported Medications and Allergies Home Medications Medication Instructions Recorded Confirmed Type Levothyroxine Sodium [Synthroid] 100 mg PO DAILY 12/24/14 08/24/20 History Baclofen [Lioresal] 10 mg PO BID PRN 08/24/20 08/24/20 History Omeprazole [PriLOSEC] 40 mg PO DAILY 08/24/20 08/24/20 History methocarbamoL [Robaxin] 750 mg PO TID PRN 08/24/20 08/24/20 History Allergies Allergy/AdvReac Type Severity Reaction Status Date / Time No Known Allergies Allergy Verified 08/24/20 19:02 Physical Exam Osteopathic Statement: *. No significant issues noted on an osteopathic structu ral exam other than those noted in the History and Physical/Consult. Vitals: Vital Signs Temp Pulse Resp BP Pulse Ox 08/25/20 17:00 80 16 88/63 93 L 08/25/20 16:00 97.5 F L 83 16 88/70 93 L 08/25/20 15:00 82 15 92/58 92 L 08/25/20 14:00 85 14 86/61 91 L 08/25/20 13:00 85 19 90/66 94 L 08/25/20 12:00 97.8 F 89 18 88/64 94 L 08/25/20 11:00 89 16 93/71 93 L 08/25/20 10:00 93 23 92/66 94 L 08/25/20 09:00 97 22 90/68 94 L 08/25/20 08:00 97.5 F L 100 14 100/75 93 L 08/25/20 07:00 98 18 112/67 94 L 08/25/20 06:30 98 20 110/78 95 08/25/20 06:00 85 24 99/73 94 L 08/25/20 05:30 97 24 103/72 91 L 08/25/20 05:00 100 20 103/70 99 08/25/20 04:30 94 25 H 90/53 96 08/25/20 04:00 98.3 F 109 H 10 L 93/66 94 L 08/25/20 03:30 101 H 12 91/71 95 08/25/20 03:00 96 14 90/55 94 L 08/25/20 02:30 95 9 L 98/64 96 08/25/20 02:00 98 12 91/63 96 08/25/20 01:30 97 19 108/94 96 08/25/20 01:00 86 12 94/62 96 08/25/20 00:30 100 20 97/61 96 08/25/20 00:03 100 21 97/61 95 08/25/20 00:00 98.0 F 100 15 101/66 96 08/24/20 23:46 97 08/24/20 23:30 114 H 20 95 08/24/20 23:00 102 H 20 96/68 98 08/24/20 22:30 107 H 13 90/66 96 08/24/20 22:00 102 H 14 105/91 94 L 08/24/20 21:30 97 20 97/67 100 08/24/20 21:00 98.3 F 101 H 19 140/119 97 08/24/20 20:30 108 H 21 98/73 91 L 08/24/20 19:06 98.1 F 120 H 20 100/73 97 Intake and Output 08/25/20 08/25/20 08/25/20 06:59 14:59 22:59 Intake Total 1100 995 425 Output Total 1350 550 120 Balance -250 445 305 Intake: IV 1100 875 225 Magnesium Sulfate-D5w Pmx 200 1 gm In Dextrose/Water 1 100ml.bag @ 100 mls/hr IVPB Q1H [facility] Rx#: [id number] Potassium Chloride 10 meq 300 300 In Water For Injection 1 100ml.bag @ 100 mls/hr IVPB Q1HR [facility] Rx#: [id number] Sodium Chloride 0.9% 1, 600 575 225 000 ml @ 75 mls/hr IV . [id number] [facility] Rx#:[id number] Intake, IV Titration 100 Amount Potassium Chloride 10 meq 100 In Water For Injection 1 100ml.bag @ 100 mls/hr IVPB Q1HR K[facility]ICE Rx#: [id number] Oral 120 100 Output: Urine 1350 550 120 Other: Voiding Method Indwelling Catheter Indwelling Catheter Indwelling Catheter Weight 65.2 kg Heent mild scleral icteris perrla eomi tmi nares patent throat clear neck supple Heart rrrr w/o m Lungs bibasilar crackle abd: enlarged liver extremes wnl Results CBC & Chem 7: 08/25/20 02:48 08/25/20 16:07 Labs: Abnormal Lab Results - Last 24 Hours (Table) 08/24/20 08/24/20 08/24/20 Range/Units 18:18 18:37 19:31 RBC (3.80-5.40) m/uL Hgb (11.4-16.0) gm/dL Hct (34.0-46.0) % MCV (80.0-100.0) fL MCH (25.0-35.0) pg Plt Count (150-450) k/uL Sodium (137-145) mmol/L Potassium (3.5-5.1) mmol/L Chloride (98-107) mmol/L Carbon Dioxide (22-30) mmol/L BUN (7-17) mg/dL POC Glucose (mg/dL) (75-99) mg/dL Plasma Lactic Acid Bull 11.9 H* (0.7-2.0) mmol/L Calcium (8.4-10.2) mg/dL Ferritin (10.0-291.0) ng/mL Total Bilirubin (0.2-1.3) mg/dL GGT (12-43) U/L AST (14-36) U/L ALT (4-34) U/L Alkaline Phosphatase (38-126) U/L Ammonia 44 H (<30) umol/L Lactate Dehydrogenase (313-618) U/L Creatine Kinase (30-135) U/L C-Reactive Protein 20.8 H (<10.0) mg/L Total Protein (6.3-8.2) g/dL Albumin (3.5-5.0) g/dL Triglycerides (<150) mg/dL HDL Cholesterol (40-60) mg/dL Vitamin B12 (200.0-944.0) pg/mL 08/24/20 08/24/20 08/25/20 Range/Units 20:17 23:27 02:48 RBC (3.80-5.40) m/uL Hgb (11.4-16.0) gm/dL Hct (34.0-46.0) % MCV (80.0-100.0) fL MCH (25.0-35.0) pg Plt Count (150-450) k/uL Sodium 124 L (137-145) mmol/L Potassium 2.1 L* (3.5-5.1) mmol/L Chloride 83 L (98-107) mmol/L Carbon Dioxide 34 H (22-30) mmol/L BUN 3 L (7-17) mg/dL POC Glucose (mg/dL) 144 H (75-99) mg/dL Plasma Lactic Acid Bull 3.2 H* (0.7-2.0) mmol/L Calcium 7.0 L (8.4-10.2) mg/dL Ferritin 3369.4 H (10.0-291.0) ng/mL Total Bilirubin 9.6 H (0.2-1.3) mg/dL GGT 1220 H (12-43) U/L AST 285 H (14-36) U/L ALT 70 H (4-34) U/L Alkaline Phosphatase 185 H (38-126) U/L Ammonia (<30) umol/L Lactate Dehydrogenase 1119 H (313-618) U/L Creatine Kinase 922 H (30-135) U/L C-Reactive Protein 25.1 H (<10.0) mg/L Total Protein 6.0 L (6.3-8.2) g/dL Albumin 2.9 L (3.5-5.0) g/dL Triglycerides (<150) mg/dL HDL Cholesterol (40-60) mg/dL Vitamin B12 (200.0-944.0) pg/mL 08/25/20 08/25/20 08/25/20 Range/Units 02:48 02:48 08:32 RBC 2.86 L (3.80-5.40) m/uL Hgb 10.6 L (11.4-16.0) gm/dL Hct 29.6 L (34.0-46.0) % MCV 103.4 H D (80.0-100.0) fL MCH 37.1 H (25.0-35.0) pg Plt Count 132 L (150-450) k/uL Sodium (137-145) mmol/L Potassium (3.5-5.1) mmol/L Chloride (98-107) mmol/L Carbon Dioxide (22-30) mmol/L BUN (7-17) mg/dL POC Glucose (mg/dL) (75-99) mg/dL Plasma Lactic Acid Bull (0.7-2.0) mmol/L Calcium (8.4-10.2) mg/dL Ferritin (10.0-291.0) ng/mL Total Bilirubin (0.2-1.3) mg/dL GGT (12-43) U/L AST (14-36) U/L ALT (4-34) U/L Alkaline Phosphatase (38-126) U/L Ammonia 37 H (<30) umol/L Lactate Dehydrogenase (313-618) U/L Creatine Kinase (30-135) U/L C-Reactive Protein (<10.0) mg/L Total Protein (6.3-8.2) g/dL Albumin (3.5-5.0) g/dL Triglycerides (<150) mg/dL HDL Cholesterol (40-60) mg/dL Vitamin B12 1158.0 H (200.0-944.0) pg/mL 08/25/20 08/25/20 Range/Units 08:32 16:07 RBC (3.80-5.40) m/uL Hgb (11.4-16.0) gm/dL Hct (34.0-46.0) % MCV (80.0-100.0) fL MCH (25.0-35.0) pg Plt Count (150-450) k/uL Sodium (137-145) mmol/L Potassium 2.1 L* (3.5-5.1) mmol/L Chloride (98-107) mmol/L Carbon Dioxide (22-30) mmol/L BUN (7-17) mg/dL POC Glucose (mg/dL) (75-99) mg/dL Plasma Lactic Acid Bull (0.7-2.0) mmol/L Calcium (8.4-10.2) mg/dL Ferritin (10.0-291.0) ng/mL Total Bilirubin (0.2-1.3) mg/dL GGT (12-43) U/L AST (14-36) U/L ALT (4-34) U/L Alkaline Phosphatase (38-126) U/L Ammonia (<30) umol/L Lactate Dehydrogenase (313-618) U/L Creatine Kinase (30-135) U/L C-Reactive Protein (<10.0) mg/L Total Protein (6.3-8.2) g/dL Albumin (3.5-5.0) g/dL Triglycerides 432 H (<150) mg/dL HDL Cholesterol 20 L (40-60) mg/dL Vitamin B12 (200.0-944.0) pg/mL Microbiology - Last 24 Hours (Table) 08/24/20 17:55 Urine Culture - Preliminary Urine,Voided Thrombosis Risk Factor Assmnt - DVT/VTE Prophylaxis DVT/VTE Prophylaxis: Pharmacologic Prophylaxis ordered - Choose All That Apply Any of the Below Risk Factors Present?: No Other Risk Factors: No Thrombosis Risk Factor Assessment Level: Very Low Risk Assessment and Plan (1) Hypothyroid Current Visit: Yes Status: Acute Code(s): E03.9 - HYPOTHYROIDISM, UNSPECIFIED SNOMED Code(s): 92084728 (2) Alcohol withdrawal syndrome Current Visit: Yes Status: Acute Code(s): F10.239 - ALCOHOL DEPENDENCE WITH WITHDRAWAL, UNSPECIFIED SNOMED Code(s): 022942179 (3) COVID-19 Current Visit: Yes Status: Acute Code(s): U07.1 - COVID-19 SNOMED Code(s): 791655906 (4) Hypokalemia Current Visit: Yes Status: Acute Code(s): E87.6 - HYPOKALEMIA SNOMED Code(s): 45857484 (5) Hypomagnesemia Current Visit: Yes Status: Acute Code(s): E83.42 - HYPOMAGNESEMIA SNOMED Code(s): 364173623 (6) Lactic acidosis Current Visit: Yes Status: Acute Code(s): E87.2 - ACIDOSIS SNOMED Code(s): 20935581 Plan: ICU addmit 02 per nascan iv resusitation iv antibitics iv steroids Id consultation Critical CARE consultation Time with Patient: Greater than 30
--- NOTE | 2020-08-25 20:14 | CONS ---
CONSULTATION DATE OF DICTATION: 08/25/2020 REASON FOR CONSULTATION: Elevated LFTs, jaundice and history of alcoholism. HISTORY OF PRESENT ILLNESS: The patient is a 50-year-old pleasant white female with history of heavy alcohol abuse for the last 2 years' duration, admitted to the hospital with alcohol withdrawal. While in the hospital when she came to the emergency room she was apparently not feeling well, complaining of shortness of breath, some coughing, shaky, sweaty, and subsequently she was admitted to the intensive care unit and is being monitored closely. She was also noted to have elevated LFTs and hence we are consulted in regards to this issue. She also tested positive for COVID-19 infection two days ago. The patient is sedated, and hence most of the history was obtained from the nursing staff. The patient apparently is not complaining of any abdominal pain. No nausea, no vomiting. No rectal bleeding or melena. In the emergency room she was noted to have elevated serum transaminases and bilirubin. T-bilirubin was up to 9.2. AST is 337, ALT is 86, and alkaline phosphatase is 247. T- bilirubin is 10.6. Sodium was 122, potassium 2.7, chloride 72, CO2 12. BUN 3, creatinine 0.97. WBC 13.6, hemoglobin 12.8, and platelets are 181. Today hemoglobin is down to 10.6, platelets are 132,000. T-bilirubin is down to 9.6. Rest of the labs are similar to yesterday. Coronavirus PCR is positive. PAST MEDICAL HISTORY: Her past medical history is significant for heavy alcohol abuse for the last 2 years' duration, hypothyroidism, gastroesophageal reflux disease. MEDICATIONS: Medications at home include Robaxin, Prilosec, Lioresal, Synthroid. ALLERGIES: NONE. SOCIAL HISTORY: Former smoker. Heavy alcohol abuse. FAMILY HISTORY: Family history could not be obtained. REVIEW OF SYSTEMS: Review of systems could not be obtained, as patient is sedated. PHYSICAL EXAMINATION: She appears comfortable. No apparent distress. VITAL SIGNS: Stable. Blood pressure is 92/58, pulse rate 82, temperature 97.8. HEENT examination unremarkable. Conjunctivae pink. Sclerae deeply icteric. Oral cavity no lesions. NECK: No JVD or lymph node enlargement. CHEST: Clear to auscultation. HEART: Regular rate and rhythm. ABDOMEN: Slightly distended. Liver was palpable 3 cm below the right costal margin. Rest of the abdomen was benign. Bowel sounds are positive. EXTREMITIES: No pedal edema. NEUROLOGIC: She is arousable, but she is quite sleepy. LABS/IMAGING: Labs from today show WBC 7.1, hemoglobin 10.6, platelets 132. T-bilirubin 9.6, AST 285, ALT 70, alkaline phosphatase 187. Blood sugar 156. Sodium 124, potassium 2.1, chloride 83, CO2 34. BUN 3, creatinine 0.63. Lipase is 70, amylase is 33. Coronavirus PCR is positive. She did have a CT scan of the abdomen and pelvis done in the emergency room yesterday that showed evidence of significant hypodensity throughout the liver consistent with fatty infiltration. IMPRESSION: 1. Acute alcohol withdrawal. 2. History of heavy alcohol abuse. 3. Elevated liver function tests and jaundice, all consistent with acute alcoholic hepatitis. 4. COVID-19 infection. 5. Severe hyponatremia and hypokalemia. 6. Coagulopathy secondary to advanced liver disease. RECOMMENDATIONS: 1. Continue to monitor closely for acute alcohol withdrawal. 2. Patient already started on broad-spectrum antibiotics. 3. Continue symptomatic and supportive care. 4. Replace electrolytes. 5. Monitor labs closely. 6. Will follow with you closely. Thank you for this consultation. MMODL / IJN: [id number] /
[2020-08-25] MEDS ORDERED: PANTOPRAZOLE 40 MG/10 ML VIAL IVP SCH (21:00)
[2020-08-26] MEDS: POTASSIUM CHLORIDE 10 MEQ in WATER FOR INJECTION 1 100ML.BAG IVPB SCH ×12 (00:35→23:21)
[2020-08-26 03:20] LABS: ALT 65 U/L (4-34); AST 230 U/L (14-36); African American GFR (CKD) >90 (>60 ml/min/1.73 sqM); Albumin 2.8 g/dL (3.5-5.0); Alkaline Phosphatase 206 U/L (38-126); Anion Gap 7 mmol/L; Blood Urea Nitrogen 2 mg/dL (7-17); C Reactive Protein 29.3 mg/L (<10.0); Calcium 6.9 mg/dL (8.4-10.2); Carbon Dioxide 31 mmol/L (22-30); Chloride 90 mmol/L (98-107); Creatine Kinase 571 U/L (30-135); Glucose 83 mg/dL (74-99); LDH 888 U/L (313-618); Non-African American GFR(CKD) >90 (>60 ml/min/1.73 sqM); Sodium 128 mmol/L (137-145); Total Bilirubin 8.4 mg/dL (0.2-1.3); Total Protein 5.9 g/dL (6.3-8.2)
[2020-08-26 03:31] LABS: Potassium 2.7 mmol/L (3.5-5.1)
[2020-08-26 03:45] LABS: Basophils % (A) 1 %; Eosinophils # (A) 0.1 k/uL (0-0.7); Eosinophils % (A) 2 %; HCT 30.5 % (34.0-46.0); HGB 10.4 gm/dL (11.4-16.0); Lymphocytes # (A) 1.1 k/uL (1.0-4.8); Lymphocytes % (A) 17 %; MCHC 34.1 g/dL (31.0-37.0); MCV 105.5 fL (80.0-100.0); Macrocytosis Moderate; Mean Platelet Volume 10.3; Monocytes # (A) 0.3 k/uL (0-1.0); Monocytes % (A) 4 %; Neutrophils # (A) 4.6 k/uL (1.3-7.7); Neutrophils % (A) 74 %; Platelet Count 130 k/uL (150-450); RBC 2.89 m/uL (3.80-5.40); RDW 15.7 % (11.5-15.5); WBC 6.2 k/uL (3.8-10.6)
[2020-08-26] MEDS: SODIUM CHLORIDE 0.9% 1,000 ML IV SCH ×2 (08:02→23:22)
[2020-08-26] MEDS: FOLIC ACID 1 MG TAB PO SCH (08:03)
[2020-08-26] MEDS: THIAMINE 100 MG TAB PO SCH ×2 (08:03→17:56)
[2020-08-26] MEDS: CYANOCOBALAMIN 500 MCG TAB PO SCH (08:03)
[2020-08-26] MEDS: LEVOTHYROXINE IVP 100 MCG/5 ML VIAL IV SCH (08:03)
[2020-08-26] MEDS: ENOXAPARIN 30 MG/0.3 ML SYRINGE SQ SCH (08:03)
[2020-08-26] MEDS: PANTOPRAZOLE 40 MG/10 ML VIAL IVP SCH ×2 (08:04→20:30)
[2020-08-26] MEDS: LORazepam 2 MG/ML INJ IV PRN ×3 (08:24→23:07)
[2020-08-26] MEDS ORDERED: LEVOTHYROXINE IVP 100 MCG/5 ML VIAL IV SCH (09:00)
[2020-08-26] MEDS ORDERED: ENOXAPARIN 30 MG/0.3 ML SYRINGE SQ SCH (09:00)
[2020-08-26] MEDS: MORPHINE SULFATE 2 MG/ML SYRINGE IV PRN ×3 (10:12→20:31)
[2020-08-26 10:28] LABS: Ferritin 3288.6 ng/mL (10.0-291.0)
--- NOTE | 2020-08-26 10:30 | P.PN ---
Subjective Progress Note Date: 08/26/20 Principal diagnosis: Alcoholic liver disease The patient is seen today 08/26/2020 in follow-up in the intensive care unit. She has a history of chronic alcohol use and chronic alcohol abuse, hypothyroidism, depression. She drinks approximately a pint of rum every day. She had presented to the emergency room on 08/24/2020 with complaints of sweating, shaking, shortness of breath and not feeling well. She did test positive for CoVID 19 on 08/23/2020. She was admitted to the intensive care unit for severe alcoholic liver disease and probable alcoholic cirrhosis. She was found to have a profound electrolyte disturbance including hypomagnesemia, hypokalemia, hyponatremia. Also hyperbilirubinemia with jaundice. Presently, she is more awake and alert. She is sitting up in bed. She is tolerating liquids. Computed tomography scan of the abdomen revealed significant fatty replacement of the liver. There is some infiltrate/atelectasis at the lung bases. Computed tomography scan of the brain revealed no acute intracranial abnormality. Carotid Dopplers revealed no hemodynamic significant stenosis bilaterally. She is maintaining O2 saturations in the 90s on room air. She's afebrile. Urine culture showing gram-negative bacilli. White count 6.2. Hemoglobin 10.4. Platelet count 130,000. Sodium 128. Potassium 2.7. Creatinine 0.48. AST 230. ALT 65. Ammonia level LIII. LDH 888. C-reactive protein 29.3. Albumin 2.8. She is currently on ceftriaxone, folic acid, Lovenox, thiamine. 0.9 normal saline at 75 ML's per hour. Protonix. She remains on the CIWA protocol. Objective - Vital Signs Vital signs: Vital Signs Temp 97.7 F 08/26/20 08:00 Pulse 100 08/26/20 09:00 Resp 12 08/26/20 09:00 BP 91/76 08/26/20 09:00 Pulse Ox 94 L 08/26/20 09:00 Intake & Output 08/25/20 08/26/20 08/26/20 18:59 06:59 18:59 Intake Total 1595 1550 695 Output Total 710 915 475 Balance 885 635 220 Weight 64.1 kg Intake: IV 1175 1300 525 Potassium Chloride 10 meq 300 400 300 In Water For Injection 1 100ml.bag @ 100 mls/hr IVPB Q1HR [facility] Rx#: [id number] Sodium Chloride 0.9% 1, 875 900 225 000 ml @ 75 mls/hr IV . [id number] [facility] Rx#:[id number] Intake, IV Titration 200 50 Amount Potassium Chloride 10 meq 200 In Water For Injection 1 100ml.bag @ 100 mls/hr IVPB Q1HR [facility] Rx#: [id number] cefTRIAXone 1 gm In 50 Sodium Chloride 0.9% 50 ml @ 100 mls/hr IVPB Q24HR [facility] Rx#:[id number] Oral 220 250 120 Output: Urine 710 915 475 Other: Voiding Method Indwelling Catheter Indwelling Catheter Indwelling Catheter - Exam GENERAL EXAM: Alert, jaundice, pleasant 50-year-old female, on room air comfortable in no apparent distress. HEAD: Normocephalic. EYES: Normal reaction of pupils, equal size. NOSE: Clear with pink turbinates. THROAT: No erythema or exudates. NECK: No masses, no JVD. CHEST: No chest wall deformity. LUNGS: Equal air entry with crackles in the bilateral posterior bases CVS: S1 and S2 normal with no audible murmur, regular rhythm. ABDOMEN: Positive hepatosplenomegaly, normal bowel sounds, no guarding or rigidity. SPINE: No scoliosis or deformity SKIN: No rashes CENTRAL NERVOUS SYSTEM: No focal deficits, tone is normal in all 4 extremities. EXTREMITIES: There is no peripheral edema. No clubbing, no cyanosis. Peripheral pulses are intact. - Labs CBC & Chem 7: 08/26/20 02:49 08/26/20 02:49 Labs: Abnormal Lab Results - Last 24 Hours (Table) 08/25/20 08/25/20 08/25/20 Range/Units 02:48 02:48 08:32 RBC (3.80-5.40) m/uL Hgb (11.4-16.0) gm/dL Hct (34.0-46.0) % MCV (80.0-100.0) fL MCH (25.0-35.0) pg RDW (11.5-15.5) % Plt Count (150-450) k/uL Sodium (137-145) mmol/L Potassium (3.5-5.1) mmol/L Chloride (98-107) mmol/L Carbon Dioxide (22-30) mmol/L BUN (7-17) mg/dL Creatinine (0.52-1.04) mg/dL Calcium (8.4-10.2) mg/dL Ferritin 3369.4 H (10.0-291.0) ng/mL Total Bilirubin (0.2-1.3) mg/dL AST (14-36) U/L ALT (4-34) U/L Alkaline Phosphatase (38-126) U/L Ammonia (<30) umol/L Lactate Dehydrogenase (313-618) U/L Creatine Kinase (30-135) U/L C-Reactive Protein (<10.0) mg/L Total Protein (6.3-8.2) g/dL Albumin (3.5-5.0) g/dL Triglycerides 432 H (<150) mg/dL HDL Cholesterol 20 L (40-60) mg/dL Vitamin B12 1158.0 H (200.0-944.0) pg/mL 08/25/20 08/26/20 08/26/20 Range/Units 16:07 02:49 02:49 RBC 2.89 L (3.80-5.40) m/uL Hgb 10.4 L (11.4-16.0) gm/dL Hct 30.5 L (34.0-46.0) % MCV 105.5 H (80.0-100.0) fL MCH 36.0 H (25.0-35.0) pg RDW 15.7 H (11.5-15.5) % Plt Count 130 L (150-450) k/uL Sodium 128 L (137-145) mmol/L Potassium 2.1 L* 2.7 L* (3.5-5.1) mmol/L Chloride 90 L (98-107) mmol/L Carbon Dioxide 31 H (22-30) mmol/L BUN 2 L (7-17) mg/dL Creatinine 0.48 L (0.52-1.04) mg/dL Calcium 6.9 L (8.4-10.2) mg/dL Ferritin (10.0-291.0) ng/mL Total Bilirubin 8.4 H (0.2-1.3) mg/dL AST 230 H (14-36) U/L ALT 65 H (4-34) U/L Alkaline Phosphatase 206 H (38-126) U/L Ammonia (<30) umol/L Lactate Dehydrogenase 888 H (313-618) U/L Creatine Kinase 571 H (30-135) U/L C-Reactive Protein 29.3 H (<10.0) mg/L Total Protein 5.9 L (6.3-8.2) g/dL Albumin 2.8 L (3.5-5.0) g/dL Triglycerides (<150) mg/dL HDL Cholesterol (40-60) mg/dL Vitamin B12 (200.0-944.0) pg/mL 08/26/20 Range/Units 02:49 RBC (3.80-5.40) m/uL Hgb (11.4-16.0) gm/dL Hct (34.0-46.0) % MCV (80.0-100.0) fL MCH (25.0-35.0) pg RDW (11.5-15.5) % Plt Count (150-450) k/uL Sodium (137-145) mmol/L Potassium (3.5-5.1) mmol/L Chloride (98-107) mmol/L Carbon Dioxide (22-30) mmol/L BUN (7-17) mg/dL Creatinine (0.52-1.04) mg/dL Calcium (8.4-10.2) mg/dL Ferritin (10.0-291.0) ng/mL Total Bilirubin (0.2-1.3) mg/dL AST (14-36) U/L ALT (4-34) U/L Alkaline Phosphatase (38-126) U/L Ammonia 53 H (<30) umol/L Lactate Dehydrogenase (313-618) U/L Creatine Kinase (30-135) U/L C-Reactive Protein (<10.0) mg/L Total Protein (6.3-8.2) g/dL Albumin (3.5-5.0) g/dL Triglycerides (<150) mg/dL HDL Cholesterol (40-60) mg/dL Vitamin B12 (200.0-944.0) pg/mL Microbiology - Last 24 Hours (Table) 08/24/20 17:55 Urine Culture - Preliminary Urine,Voided Gram Neg Bacilli Assessment and Plan Assessment: 1 Altered mental status secondary to profound electrolyte disturbance secondary to severe alcoholic liver disease and probable alcoholic cirrhosis 2 Chronic alcohol abuse 3 Hyperbilirubinemia with jaundice 4 Hypokalemia 5 Hypothyroidism 6 Chronic depression 7 Chronic anemia 8 Thrombocytopenia 9 Hyperammonemia 10 Urinary tract infection secondary to gram-negative bacilli Plan: The patient was seen and evaluated by Dr. Jorgensen Continue with electrolyte replacement Continue [facility] protocol Monitor her here in the intensive care unit Probable transfer her out later today Follow-up chest x-ray in the a.m. We will continue to follow and make further recommendations based on her clinical status I, the cosigning physician, performed a history & physical examination of the patient. Lungs sounds with crackles in the bilateral posterior bases. Maintaining good O2 saturations in the 90s on room air. I discussed the assessment and plan of care with my nurse practitioner, Shanae Hanson. I attest to the above note as dictated by her.
--- NOTE | 2020-08-26 11:22 | P.PN ---
Subjective Progress Note Date: 08/26/20 Principal diagnosis: Elevated LFTs, jaundice and history of EMBOLISM, Covid-19 positive This patient is a pleasant 50-year-old white female with a past history of heavy alcohol abuse for the last 2 years duration, who stated she was drinking at least a platelet day. She was admitted to the hospital with alcohol withdrawal. While in the hospital she also reported not feeling well, complaining of shortness of breath and coughing. She was tested for occult 19 and came back p ositive, she was admitted to the ICU for close monitoring with electrolyte imbalances. She is on CIWA protocol. Today she appears to be a little bit more awake and alert. She is again oriented 2-3. Her repeat LFTs are improving, todays LFTs are total bilirubin 8.4, alkaline phosphatase 206, AST 2:30, ALT 65, ammonia this morning was 54. No acute changes through the night. No reported abdominal pain, nausea, or vomiting. Objective - Vital Signs Vital signs: Vital Signs Temp 97.7 F 08/26/20 08:00 Pulse 100 08/26/20 09:00 Resp 12 08/26/20 09:00 BP 91/76 08/26/20 09:00 Pulse Ox 94 L 08/26/20 09:00 Intake & Output 08/25/20 08/26/20 08/26/20 18:59 06:59 18:59 Intake Total 1595 1550 695 Output Total 710 915 475 Balance 885 635 220 Weight 64.1 kg Intake: IV 1175 1300 525 Potassium Chloride 10 meq 300 400 300 In Water For Injection 1 100ml.bag @ 100 mls/hr IVPB Q1HR [facility] Rx#: [id number] Sodium Chloride 0.9% 1, 875 900 225 000 ml @ 75 mls/hr IV . [id number] [facility] Rx#:[id number] Intake, IV Titration 200 50 Amount Potassium Chloride 10 meq 200 In Water For Injection 1 100ml.bag @ 100 mls/hr IVPB Q1HR [facility] Rx#: [id number] cefTRIAXone 1 gm In 50 Sodium Chloride 0.9% 50 ml @ 100 mls/hr IVPB Q24HR [facility] Rx#:[id number] Oral 220 250 120 Output: Urine 710 915 475 Other: Voiding Method Indwelling Catheter Indwelling Catheter Indwelling Catheter - Exam General appearance: The patient is alert, appears in no acute distress. Drowsy. HET: Head is normocephalic and atraumatic. Conjunctiva pink. Sclera deeply icteric. Neck: Supple without lymphadenopathy. Abdomen: Soft, nontender, slightly with bowel sounds. No guarding or rigidity. Extremities: Normal turgor. No pedal edema Skin: Jaundiced Neurological: No focal deficits. More alert and awake today, oriented to person and place, still some uncertainty with year. - Labs CBC & Chem 7: 08/26/20 02:49 08/26/20 02:49 Labs: Abnormal Lab Results - Last 24 Hours (Table) 08/25/20 08/25/20 08/25/20 Range/Units 02:48 02:48 08:32 RBC (3.80-5.40) m/uL Hgb (11.4-16.0) gm/dL Hct (34.0-46.0) % MCV (80.0-100.0) fL MCH (25.0-35.0) pg RDW (11.5-15.5) % Plt Count (150-450) k/uL Sodium (137-145) mmol/L Potassium (3.5-5.1) mmol/L Chloride (98-107) mmol/L Carbon Dioxide (22-30) mmol/L BUN (7-17) mg/dL Creatinine (0.52-1.04) mg/dL Calcium (8.4-10.2) mg/dL Ferritin 3369.4 H (10.0-291.0) ng/mL Total Bilirubin (0.2-1.3) mg/dL AST (14-36) U/L ALT (4-34) U/L Alkaline Phosphatase (38-126) U/L Ammonia (<30) umol/L Lactate Dehydrogenase (313-618) U/L Creatine Kinase (30-135) U/L C-Reactive Protein (<10.0) mg/L Total Protein (6.3-8.2) g/dL Albumin (3.5-5.0) g/dL Triglycerides 432 H (<150) mg/dL HDL Cholesterol 20 L (40-60) mg/dL Vitamin B12 1158.0 H (200.0-944.0) pg/mL 08/25/20 08/26/20 08/26/20 Range/Units 16:07 02:49 02:49 RBC 2.89 L (3.80-5.40) m/uL Hgb 10.4 L (11.4-16.0) gm/dL Hct 30.5 L (34.0-46.0) % MCV 105.5 H (80.0-100.0) fL MCH 36.0 H (25.0-35.0) pg RDW 15.7 H (11.5-15.5) % Plt Count 130 L (150-450) k/uL Sodium 128 L (137-145) mmol/L Potassium 2.1 L* 2.7 L* (3.5-5.1) mmol/L Chloride 90 L (98-107) mmol/L Carbon Dioxide 31 H (22-30) mmol/L BUN 2 L (7-17) mg/dL Creatinine 0.48 L (0.52-1.04) mg/dL Calcium 6.9 L (8.4-10.2) mg/dL Ferritin (10.0-291.0) ng/mL Total Bilirubin 8.4 H (0.2-1.3) mg/dL AST 230 H (14-36) U/L ALT 65 H (4-34) U/L Alkaline Phosphatase 206 H (38-126) U/L Ammonia (<30) umol/L Lactate Dehydrogenase 888 H (313-618) U/L Creatine Kinase 571 H (30-135) U/L C-Reactive Protein 29.3 H (<10.0) mg/L Total Protein 5.9 L (6.3-8.2) g/dL Albumin 2.8 L (3.5-5.0) g/dL Triglycerides (<150) mg/dL HDL Cholesterol (40-60) mg/dL Vitamin B12 (200.0-944.0) pg/mL 08/26/20 Range/Units 02:49 RBC (3.80-5.40) m/uL Hgb (11.4-16.0) gm/dL Hct (34.0-46.0) % MCV (80.0-100.0) fL MCH (25.0-35.0) pg RDW (11.5-15.5) % Plt Count (150-450) k/uL Sodium (137-145) mmol/L Potassium (3.5-5.1) mmol/L Chloride (98-107) mmol/L Carbon Dioxide (22-30) mmol/L BUN (7-17) mg/dL Creatinine (0.52-1.04) mg/dL Calcium (8.4-10.2) mg/dL Ferritin (10.0-291.0) ng/mL Total Bilirubin (0.2-1.3) mg/dL AST (14-36) U/L ALT (4-34) U/L Alkaline Phosphatase (38-126) U/L Ammonia 53 H (<30) umol/L Lactate Dehydrogenase (313-618) U/L Creatine Kinase (30-135) U/L C-Reactive Protein (<10.0) mg/L Total Protein (6.3-8.2) g/dL Albumin (3.5-5.0) g/dL Triglycerides (<150) mg/dL HDL Cholesterol (40-60) mg/dL Vitamin B12 (200.0-944.0) pg/mL Microbiology - Last 24 Hours (Table) 08/24/20 17:55 Urine Culture - Preliminary Urine,Voided Gram Neg Bacilli Assessment and Plan Assessment: 1. Acute alcohol withdrawal 2. History of heavy alcohol abuse 3. Elevated liver function tests and jaundice, CONSISTENT with acute alcoholic hepatitis 4. Coated 19 infection 5. Severe hyponatremia and hypokalemia 6. Coagulopathy secondary to advanced liver disease Plan: 1. Continue to monitor closely for alcohol withdrawal,CIWA recall 2. Continue broad-spectrum antibiotics 3. Will start Xifaxan 550 mg twice a day, lactulose 30 mg 3 times a day, titrate to have 3-4 bowel movements daily 4. Continue symptomatic and supportive care 5. Continue with medical management of electrolyte imbalances 6. Repeat daily CMP and ammonia 7. We will continue to follow you closely Dr. Rasheeda Moise I agree with the dictator's note, documented as a scribe by Kayla Greene.
--- NOTE | 2020-08-26 13:09 | P.PN ---
Subjective Progress Note Date: 08/26/20 The patient was seen at bedside and the per the patient nurse she's doing better but still has the slurring of the speech. Upon seeing the patient she said that she's feeling better and she said that this is not the way she talks she feels somewhat more slurred compared to her baseline. Upon speaking to the patient's (Elias) via phone he said the patient is having slurring the speech and he was concerned about a stroke. He did acknowledge that her slurring of his speech is improving but is not back to baseline. Patient denies of any focal weakness, numbness, visual disturbance. Objective - Vital Signs Vital signs: Vital Signs Temp 97.7 F 08/26/20 08:00 Pulse 101 H 08/26/20 10:00 Resp 22 08/26/20 10:00 BP 97/75 08/26/20 10:00 Pulse Ox 92 L 08/26/20 10:00 Intake & Output 08/25/20 08/26/20 08/26/20 18:59 06:59 18:59 Intake Total 1595 1550 870 Output Total 710 915 475 Balance 885 635 395 Weight 64.1 kg Intake: IV 1175 1300 700 Potassium Chloride 10 meq 300 400 400 In Water For Injection 1 100ml.bag @ 100 mls/hr IVPB Q1HR [facility] Rx#: [id number] Sodium Chloride 0.9% 1, 875 900 300 000 ml @ 75 mls/hr IV . [id number] [facility] Rx#:[id number] Intake, IV Titration 200 50 Amount Potassium Chloride 10 meq 200 In Water For Injection 1 100ml.bag @ 100 mls/hr IVPB Q1HR [facility] Rx#: [id number] cefTRIAXone 1 gm In 50 Sodium Chloride 0.9% 50 ml @ 100 mls/hr IVPB Q24HR [facility] Rx#:[id number] Oral 220 250 120 Output: Urine 710 915 475 Other: Voiding Method Indwelling Catheter Indwelling Catheter Indwelling Catheter - Exam GENERAL: The patient is lying in bed and is not in acute distress. She seemed mildly restless. NEUROLOGICAL: Higher mental function: The patient is awake, alert, oriented to self, place and time. Is following command. No aphasia and no neglect. Cranial nerves: The pupils are round, equal and reactive to light. Visual monge are full to confrontation throughout. Extraocular movement is intact no nystagmus is noted. Facial sensation is normal to touch throughout. The facial strength is normal throughout. Hearing is normal bilaterally to hand rub. Tongue is midline and moved [id number] without any difficulty. Has mild dysarthria. Motor: Gait is deferred. The strength is 5/5 throughout. Normal tone and bulk. Has mild tremors of bilateral hands. Cerebellum: Normal finger to nose bilaterally. Sensation: Sensation is normal to touch throughout. Reflexes (right/left): 2+ throughout. Plantars are downgoing bilaterally. - Labs CBC & Chem 7: 08/26/20 02:49 08/26/20 02:49 Labs: Abnormal Lab Results - Last 24 Hours (Table) 08/25/20 08/25/20 08/26/20 Range/Units 02:48 16:07 02:49 RBC 2.89 L (3.80-5.40) m/uL Hgb 10.4 L (11.4-16.0) gm/dL Hct 30.5 L (34.0-46.0) % MCV 105.5 H (80.0-100.0) fL MCH 36.0 H (25.0-35.0) pg RDW 15.7 H (11.5-15.5) % Plt Count 130 L (150-450) k/uL Sodium (137-145) mmol/L Potassium 2.1 L* (3.5-5.1) mmol/L Chloride (98-107) mmol/L Carbon Dioxide (22-30) mmol/L BUN (7-17) mg/dL Creatinine (0.52-1.04) mg/dL Calcium (8.4-10.2) mg/dL Ferritin (10.0-291.0) ng/mL Total Bilirubin (0.2-1.3) mg/dL AST (14-36) U/L ALT (4-34) U/L Alkaline Phosphatase (38-126) U/L Ammonia (<30) umol/L Lactate Dehydrogenase (313-618) U/L Creatine Kinase (30-135) U/L C-Reactive Protein (<10.0) mg/L Total Protein (6.3-8.2) g/dL Albumin (3.5-5.0) g/dL Vitamin B12 1158.0 H (200.0-944.0) pg/mL 08/26/20 08/26/20 Range/Units 02:49 02:49 RBC (3.80-5.40) m/uL Hgb (11.4-16.0) gm/dL Hct (34.0-46.0) % MCV (80.0-100.0) fL MCH (25.0-35.0) pg RDW (11.5-15.5) % Plt Count (150-450) k/uL Sodium 128 L (137-145) mmol/L Potassium 2.7 L* (3.5-5.1) mmol/L Chloride 90 L (98-107) mmol/L Carbon Dioxide 31 H (22-30) mmol/L BUN 2 L (7-17) mg/dL Creatinine 0.48 L (0.52-1.04) mg/dL Calcium 6.9 L (8.4-10.2) mg/dL Ferritin 3288.6 H (10.0-291.0) ng/mL Total Bilirubin 8.4 H (0.2-1.3) mg/dL AST 230 H (14-36) U/L ALT 65 H (4-34) U/L Alkaline Phosphatase 206 H (38-126) U/L Ammonia 53 H (<30) umol/L Lactate Dehydrogenase 888 H (313-618) U/L Creatine Kinase 571 H (30-135) U/L C-Reactive Protein 29.3 H (<10.0) mg/L Total Protein 5.9 L (6.3-8.2) g/dL Albumin 2.8 L (3.5-5.0) g/dL Vitamin B12 (200.0-944.0) pg/mL Microbiology - Last 24 Hours (Table) 08/24/20 17:55 Urine Culture - Preliminary Urine,Voided Gram Neg Bacilli Assessment and Plan Assessment: This is a 50-year-old woman with a significant alcohol use, drinks about a pint of liquor daily and the last drink was about to 3 days ago presented to the emergency department on 08/24/2020 for sweating, feeling shaken and shortness of breath the last 2 days. She's also been feeling nauseous but no vomiting. Toxic metabolic encephalopathy due to alcohol withdrawal, medication use (Ativan) and also due to electrolyte imbalance from the alcohol use (her altered mental status seems mild). Mild Dysarthria (per this is not her baseline) likely due to above. Less likely stroke Hyponatremia due to alcohol abuse--improving Macrocytic anemia due to alcohol abuse Thrombocytopenia due to ongoing chronic alcohol use Multiple Electrolyte imbalance (hypokalemia, hypomagnesemia, hyponatremia) due to alcohol use Diaphoresis, tremor of the extremities and shortness of breath due to alcohol withdrawal Jaundice with scleral icterus due to alcohol abuse Elevated liver function tests due to alcohol abuse--trending down Pulmonary distress due to positive coated 19 as well as a component of the alcohol withdrawal Alcohol abuse with last drink about 2 days ago History of hypothyroidism Plan: Patient was given thiamine 100 mg once in the ED then was started on 100 mg 1 tablet twice a day and that's to be continued. Vitamin B12: 1159 (high but that is considered normal). Rbc folate level: pending. Continue on vitamin B12 1000 g daily and folate 1 mg daily especially with a macrocytosis likely due to alcohol use. Ammonia level: 53 (trending up today compared to yesterday). Regarding the dysarthria not sure if this is the patient baseline the OR this is a new. Carotid duplex is reported as no hemodynamic significant stenosis of the proximal internal carotid arteries by Doppler criteria, and in direct measurement of carotid stenosis. Lipid panel is a triglyceride of 432, cholesterol of 196, LDL of 123, and HDL is 20. Recommend repeating it within a week. Ordered MRI of the brain to rule out any stroke especially that the since the stated that the patient has dysarthria and this is not her baseline and is concerned about a stroke which I think is unlikely. If it is a stroke then we will get the rest of the stroke workup after the MRI. I will not start the patient on aspirin or statins because stroke is not the top of my differential. As well as the hair LFTs are elevated, has thrombocytopenia so we'll hold off on using statins for now until her LFTs stabilize. An EEG is not warranted at this time since the patient does not have any seizure her mentation is likely toxic metabolic encephalopathy. Patient is on CIWA protocol will defer the management to the ICU as well as the primary team. Regarding the electrolyte imbalance would defer the management to the ICU/primary team. Patient was counseled on alcohol cessation. The plan was discussed with the patient and her ((Elias) via phone). Mekhi Jorgensen M.D. Neuro-hospitalist Time with Patient: Less than 30
--- NOTE | 2020-08-26 14:01 | P.PN ---
Subjective Progress Note Date: 08/26/20 Principal diagnosis: EtOH abuse, positive Covid 19 virus. 50-year-old white female was admitted to hospital with acute alcohol withdrawal. History of heavy alcohol abuse for approximately 2 years or more, is apparent that she drinks approximately 1 5th of rum daily. She is having complaints of difficulty breathing was then tested for Covid and was found to be positive for the virus. Currently she is sitting up in bed with the only complaint being a sore throat and neck and back of head pain. Today she was able to express correctly date, time, place and herself. Her thoughts to speech are slow and require time for answer to question. Currently denies nausea, vomiting diarrhea, difficulty breathing and is currently on room air. Most recent set of vitals pulse rate of 96, respiratory rate of 14, blood pressure is 89/78, and satting 95% on room air at this time. Most recent set of labs hemoglobin 10.4, hematocrit 30.5, platelet count 1:30. Chemistry reveals a sodium of 128, potassium of 2.7, chloride of 90, carbon monoxide 31, NICKO of 2, creatinine of 0.48, ferritin of 3288, AST trending downward at 236 and ELT of 65. Ammonia level has increased to 53 from 37 and will begin lactulose to help offset the increase. Objective - Vital Signs Vital signs: Vital Signs Temp 98 F 08/26/20 12:00 Pulse 96 08/26/20 13:00 Resp 14 08/26/20 13:00 BP 89/78 08/26/20 13:00 Pulse Ox 95 08/26/20 13:00 Intake & Output 08/25/20 08/26/20 08/26/20 18:59 06:59 18:59 Intake Total 1595 1550 1215 Output Total 710 915 650 Balance 885 635 565 Weight 64.1 kg Intake: IV 1175 1300 925 Potassium Chloride 10 meq 300 400 400 In Water For Injection 1 100ml.bag @ 100 mls/hr IVPB Q1HR [facility] Rx#: [id number] Sodium Chloride 0.9% 1, 875 900 525 000 ml @ 75 mls/hr IV . [id number] [facility] Rx#:[id number] Intake, IV Titration 200 50 Amount Potassium Chloride 10 meq 200 In Water For Injection 1 100ml.bag @ 100 mls/hr IVPB Q1HR [facility] Rx#: [id number] cefTRIAXone 1 gm In 50 Sodium Chloride 0.9% 50 ml @ 100 mls/hr IVPB Q24HR [facility] Rx#:[id number] Oral 220 250 240 Output: Urine 710 915 650 Other: Voiding Method Indwelling Catheter Indwelling Catheter Indwelling Catheter - Exam GENERAL: Alert, jaundiced, well-nourished and in no acute distress. HEAD: Atraumatic, normocephalic. EYES: Pupils equal round and reactive to light, extraocular movements intact, sclera icterus, conjunctiva are normal. ENT:nares patent, oropharynx clear without exudates. Moist mucous membranes. NECK: Normal range of motion, supple without lymphadenopathy or JVD, no thyromegaly LUNGS: Breath sounds clear diminished in the upper monge with fine basilar crackles at the bases.. HEART: Regular rate and rhythm without murmurs, rubs or gallops.S1S2 Normal ABDOMEN: Soft, nontender, normoactive bowel sounds. No guarding, no rebound. No masses appreciated. EXTREMITIES: Normal range of motion, no pitting or edema. No clubbing or cyanosis. NEUROLOGICAL: Cranial nerves II through XII grossly intact. Normal speech, normal gait. PSYCH: Normal mood, normal affect. SKIN: Warm, Dry, jaundiced, normal turgor, no rashes or lesions noted. - Labs CBC & Chem 7: 08/26/20 02:49 08/26/20 02:49 Labs: Abnormal Lab Results - Last 24 Hours (Table) 08/25/20 08/26/20 08/26/20 Range/Units 16:07 02:49 02:49 RBC 2.89 L (3.80-5.40) m/uL Hgb 10.4 L (11.4-16.0) gm/dL Hct 30.5 L (34.0-46.0) % MCV 105.5 H (80.0-100.0) fL MCH 36.0 H (25.0-35.0) pg RDW 15.7 H (11.5-15.5) % Plt Count 130 L (150-450) k/uL Sodium 128 L (137-145) mmol/L Potassium 2.1 L* 2.7 L* (3.5-5.1) mmol/L Chloride 90 L (98-107) mmol/L Carbon Dioxide 31 H (22-30) mmol/L BUN 2 L (7-17) mg/dL Creatinine 0.48 L (0.52-1.04) mg/dL Calcium 6.9 L (8.4-10.2) mg/dL Ferritin 3288.6 H (10.0-291.0) ng/mL Total Bilirubin 8.4 H (0.2-1.3) mg/dL AST 230 H (14-36) U/L ALT 65 H (4-34) U/L Alkaline Phosphatase 206 H (38-126) U/L Ammonia (<30) umol/L Lactate Dehydrogenase 888 H (313-618) U/L Creatine Kinase 571 H (30-135) U/L C-Reactive Protein 29.3 H (<10.0) mg/L Total Protein 5.9 L (6.3-8.2) g/dL Albumin 2.8 L (3.5-5.0) g/dL 08/26/20 Range/Units 02:49 RBC (3.80-5.40) m/uL Hgb (11.4-16.0) gm/dL Hct (34.0-46.0) % MCV (80.0-100.0) fL MCH (25.0-35.0) pg RDW (11.5-15.5) % Plt Count (150-450) k/uL Sodium (137-145) mmol/L Potassium (3.5-5.1) mmol/L Chloride (98-107) mmol/L Carbon Dioxide (22-30) mmol/L BUN (7-17) mg/dL Creatinine (0.52-1.04) mg/dL Calcium (8.4-10.2) mg/dL Ferritin (10.0-291.0) ng/mL Total Bilirubin (0.2-1.3) mg/dL AST (14-36) U/L ALT (4-34) U/L Alkaline Phosphatase (38-126) U/L Ammonia 53 H (<30) umol/L Lactate Dehydrogenase (313-618) U/L Creatine Kinase (30-135) U/L C-Reactive Protein (<10.0) mg/L Total Protein (6.3-8.2) g/dL Albumin (3.5-5.0) g/dL Microbiology - Last 24 Hours (Table) 08/24/20 17:55 Urine Culture - Preliminary Urine,Voided Gram Neg Bacilli Assessment and Plan (1) Altered mental status Current Visit: Yes Status: Acute Code(s): R41.82 - ALTERED MENTAL STATUS, UNSPECIFIED SNOMED Code(s): 917916373 (2) Alcohol withdrawal syndrome Current Visit: Yes Status: Acute Code(s): F10.239 - ALCOHOL DEPENDENCE WITH WITHDRAWAL, UNSPECIFIED SNOMED Code(s): 842236449 (3) COVID-19 Current Visit: Yes Status: Acute Code(s): U07.1 - COVID-19 SNOMED Code(s): 770783635 (4) Lactic acidosis Current Visit: Yes Status: Acute Code(s): E87.2 - ACIDOSIS SNOMED Code(s): 48478867 (5) Hyperammonemia Current Visit: Yes Status: Acute Code(s): E72.20 - DISORDER OF UREA CYCLE METABOLISM, UNSPECIFIED SNOMED Code(s): 6514933 (6) Hypokalemia Current Visit: Yes Status: Acute Code(s): E87.6 - HYPOKALEMIA SNOMED Code(s): 83228850 (7) Hypomagnesemia Current Visit: Yes Status: Acute Code(s): E83.42 - HYPOMAGNESEMIA SNOMED Code(s): 792432832 (8) Hypothyroid Current Visit: Yes Status: Acute Code(s): E03.9 - HYPOTHYROIDISM, UNSPECIFIED SNOMED Code(s): 17294492 Plan: 1. Lactulose 4 rising ammonia levels. 2. Continue electrolyte replacement. 3. Continue with CIWA protocol for alcohol withdrawal. 4. We'll continue to monitor labs and vitals and treat accordingly. 5. We'll reevaluate again tomorrow. Time with Patient: Greater than 30
[2020-08-26] MEDS: BENZOCAINE/MENTHOL LOZENG 1 EACH LOZENGE MUCOUS MEM PRN ×2 (14:45→20:30)
[2020-08-26] MEDS: LACTULOSE 20 GM/30 ML CUP PO SCH ×2 (17:27→21:48)
[2020-08-26] MEDS: RIFAXIMIN 550 MG TABLET PO SCH (20:30)
[2020-08-27] MEDS: POTASSIUM CHLORIDE 10 MEQ in WATER FOR INJECTION 1 100ML.BAG IVPB SCH ×5 (00:24→18:46)
[2020-08-27] MEDS: LORazepam 2 MG/ML INJ IV PRN ×3 (01:57→15:11)
[2020-08-27 04:41] LABS: ALT 56 U/L (4-34); AST 192 U/L (14-36); African American GFR (CKD) >90 (>60 ml/min/1.73 sqM); Albumin 2.8 g/dL (3.5-5.0); Alkaline Phosphatase 213 U/L (38-126); Anion Gap 5 mmol/L; Blood Urea Nitrogen <2 mg/dL (7-17); C Reactive Protein 25.1 mg/L (<10.0); Carbon Dioxide 30 mmol/L (22-30); Chloride 97 mmol/L (98-107); Creatine Kinase 339 U/L (30-135); Glucose 73 mg/dL (74-99); LDH 804 U/L (313-618); Non-African American GFR(CKD) >90 (>60 ml/min/1.73 sqM); Sodium 132 mmol/L (137-145); Total Protein 5.9 g/dL (6.3-8.2)
[2020-08-27 04:52] LABS: Potassium 2.7 mmol/L (3.5-5.1)
[2020-08-27 04:54] LABS: D-Dimer 0.34 mg/L FEU (<0.60); INR 1.3 (<1.2); Prothrombin Time 13.2 sec (9.0-12.0)
[2020-08-27 04:57] LABS: HCT 30.2 % (34.0-46.0); HGB 9.8 gm/dL (11.4-16.0); MCH 35.5 pg (25.0-35.0); MCHC 32.5 g/dL (31.0-37.0); MCV 109.4 fL (80.0-100.0); Macrocytosis Marked; Mean Platelet Volume 10.2; Platelet Count 176 k/uL (150-450); RBC 2.76 m/uL (3.80-5.40); RDW 15.9 % (11.5-15.5); WBC 4.2 k/uL (3.8-10.6)
[2020-08-27] MEDS ORDERED: POTASSIUM BICARBONATE/CIT AC 20 MEQ TABLET.EFF NG-TUBE SCH (05:00)
[2020-08-27] MEDS: MORPHINE SULFATE 2 MG/ML SYRINGE IV PRN ×2 (05:15→20:39)
[2020-08-27 05:25] LABS: Eosinophils # (M) 0.04 k/uL (0-0.7); Lymphocytes # (M) 0.76 k/uL (1.0-4.8); Monocytes # (M) 0.42 k/uL (0-1.0); Neutrophils # (M) 2.98 k/uL (1.3-7.7); Neutrophils % (M) 71 %; Nucleated Red Blood Cells 0 /100 WBC (0-0); Total Cells Counted 200
[2020-08-27 05:26] LABS: Stomatocytes Present
[2020-08-27] MEDS: POTASSIUM CHLORIDE ER 20 MEQ TAB.ER PO SCH ×2 (06:32→09:40)
[2020-08-27] MEDS: THIAMINE 100 MG TAB PO SCH ×2 (06:32→18:05)
[2020-08-27] MEDS: CYANOCOBALAMIN 500 MCG TAB PO SCH (09:40)
[2020-08-27] MEDS: RIFAXIMIN 550 MG TABLET PO SCH ×2 (09:41→20:41)
[2020-08-27] MEDS: FOLIC ACID 1 MG TAB PO SCH (09:41)
[2020-08-27] MEDS: PANTOPRAZOLE 40 MG/10 ML VIAL IVP SCH ×2 (09:41→20:28)
[2020-08-27] MEDS: LEVOTHYROXINE IVP 100 MCG/5 ML VIAL IV SCH (09:41)
[2020-08-27] MEDS: LACTULOSE 20 GM/30 ML CUP PO SCH ×2 (09:43→16:39)
[2020-08-27] MEDS: ENOXAPARIN 30 MG/0.3 ML SYRINGE SQ SCH (09:44)
--- NOTE | 2020-08-27 10:50 | PN ---
PROGRESS NOTE DATE OF SERVICE: August 27, 2020 CRITICAL CARE TIME: 32 minutes. This is a 50-year-old female with a history of mental status changes secondary to alcoholic liver disease and alcoholic cirrhosis with hyperammonemia. The patient has a history of chronic alcohol abuse, hyperbilirubinemia with jaundice, electrolyte disturbance including hypokalemia and hyponatremia, hypothyroidism, chronic depression, chronic anemia, thrombocytopenia, alcohol induced coagulopathy, and urinary tract infection. Currently, she is on room air. She remains in the ICU. She is on saline at 75 mL an hour. Because of her mental status changes, she is going for an MRI of the brain today. Currently, the patient is sitting up in bed. She has her breakfast in front of her, but she is really not eating. She is very agitated and confused. She has a sitter in the room with her. PHYSICAL EXAMINATION: VITAL SIGNS: Current vital signs are reviewed. Her temperature is 97.7, heart rate is 92, respiratory rate 31, blood pressure 95/81, mean 85, saturations on room air between 93% and 96%. GENERAL: Appears confused and agitated. No respiratory distress. Mildly tachypneic. HEENT: Examination is grossly unremarkable. No oral lesions. Mucous membranes are dry. NECK: Supple. Full range of motion. No adenopathy. Neck veins are flat. CARDIOVASCULAR: Examination reveals a regular rhythm and rate. Heart rate 92. S1, S2 normal. LUNGS: Reveal mostly clear breath sounds. ABDOMEN: Distended. Bowel sounds are noted. EXTREMITIES: Are intact. No edema. SKIN: Without rash. NEUROLOGIC: Examination is difficult to assess. She is very lethargic and sleepy. She does arouse and is appropriate. She seems a bit confused and somewhat agitated. LABS: Current labs are reviewed. White count 4.2, hemoglobin 9.8, hematocrit 30.2, platelet count 176,000. PT 13.2, INR 1.3. D-dimer 0.34. Sodium 132, potassium 2.7, chloride 97, CO2 of 30. Anion gap is 5. BUN and creatinine were 2 and 0.5. Her total bilirubin is 9. Her AST is 192, ALT 56, alkaline phosphatase 213. Ammonia level is down to 34. LDH 804. Total protein 5.9. Albumin 2.8. Microbiology showing E coli in the urine. Chest x-ray is pending. CURRENT MEDICATIONS: Current medications are reviewed. She is on Cepacol lozenges, ceftriaxone, vitamin B12, Lovenox, folic acid, lactulose, levothyroxine, Ativan, magnesium replacement, morphine sulfate p.r.n., Narcan, Protonix, potassium replacement, rifaximin, saline at 75 mL an hour, and thiamine. ASSESSMENT: 1. Mental status changes secondary to profound electrolyte disturbance, and severe alcoholic liver disease and alcoholic cirrhosis with hepatic encephalopathy. 2. Chronic alcohol abuse. 3. Hyperbilirubinemia. 4. Jaundice. 5. Hypokalemia. 6. Hyponatremia. 7. Hypothyroidism. 8. Anemia. 9. Chronic depression. 10.Thrombocytopenia. 11.Hyperammonemia. 12.Urinary tract infection secondary to Escherichia coli, currently on Rocephin. 13.Alcohol-induced coagulopathy. PLAN: The patient will go for an MRI scan today. She remains on Ativan via the CIWA protocol. Will continue with potassium replacement. Monitor here in the ICU. Prognosis is guarded. So far, it does not appear that she is manifesting significant alcohol withdrawal, although she is a bit confused and disoriented and agitated. We will continue to follow. Prognosis is very guarded. We talked to her about the importance of alcohol cessation. Chest x-ray was done. Additional recommendations and suggestions are forthcoming. She remains on Rocephin for her urinary tract infection. MMODL / IJN: [id number] /
--- NOTE | 2020-08-27 12:16 | PN ---
PROGRESS NOTE DATE OF DICTATION: August 27, 2020 Patient is a 50-year-old pleasant white female with history of severe alcoholic liver disease with acute alcoholic hepatitis superimposed on alcoholic cirrhosis, admitted to hospital with altered mental status and alcohol withdrawal. She still remains somewhat sluggish. She denies any new symptoms. As per the nursing staff, she has not been eating well and quite unsteady on her feet. No acute events noted overnight. PHYSICAL EXAMINATION: She appears comfortable. VITAL SIGNS: Stable. Blood pressure is 95/81, pulse rate 92, temperature 97.7. HEENT: Examination unremarkable. Conjunctivae pink. Sclerae deeply icteric. Oral cavity, no lesions. NECK: No JVD or lymph node enlargement. CHEST: Decreased breath sounds bilaterally. HEART: Regular rate and rhythm. ABDOMEN: Soft. Bowel sounds are positive. No organomegaly. EXTREMITIES: No pedal edema. NEURO: She is very sluggish, but oriented to name not to place and time. LABS: Labs done from today: WBC 4.2, hemoglobin 9.8, platelets 176. INR 1.3. Potassium 2.7. T bilirubin 9, AST 192, ALT 56, alkaline phosphatase 213. IMPRESSION: 1. COVID-19 infection. 2. Acute alcoholic hepatitis superimposed on alcoholic cirrhosis of the liver with elevated LFTs and jaundice. 3. Mild hepatic encephalopathy. Ammonia level is 34 today. Remains on Xifaxan and lactulose. 4. Alcohol withdrawal, gradually improving. 5. Electrolyte abnormalities. RECOMMENDATIONS: 1. Continue with symptomatic and supportive care. 2. Monitor LFTs closely. 3. Continue with oral lactulose as well as Xifaxan and titrate bowel movements to 3 to 4 a day. 4. Continue broad-spectrum antibiotics. 5. We will follow with you closely. Thank you for this consultation. MMODL / IJN: [id number] /
--- NOTE | 2020-08-27 12:30 | P.PN ---
Subjective Progress Note Date: 08/27/20 She was seen at bedside and not per the patient nurse she had some agitation overnight. Otherwise the tumors to be alert oriented 3 and she has a sitter with her at bedside. There is no focal deficits. Objective - Vital Signs Vital signs: Vital Signs Temp 97.7 F 08/27/20 04:00 Pulse 94 08/27/20 11:00 Resp 29 H 08/27/20 11:00 BP 108/79 08/27/20 11:00 Pulse Ox 95 08/27/20 11:00 Intake & Output 08/26/20 08/27/20 08/27/20 18:59 06:59 18:59 Intake Total 2030 1400 350 Output Total 1150 1700 600 Balance 880 -300 -250 Weight 63.8 kg Intake: IV 1300 1100 300 Potassium Chloride 10 meq 400 In Water For Injection 1 100ml.bag @ 100 mls/hr IVPB Q1HR KANDICE Rx#: [id number] Potassium Chloride 10 meq 100 In Water For Injection 1 100ml.bag @ 100 mls/hr IVPB Q1HR KANDICE Rx#: [id number] Potassium Chloride 10 meq 100 In Water For Injection 1 100ml.bag @ 100 mls/hr IVPB Q1HR KANDICE Rx#: [id number] Sodium Chloride 0.9% 1, 900 900 300 000 ml @ 75 mls/hr IV . [id number] K[facility]ICE Rx#:[id number] Intake, IV Titration 250 50 Amount Potassium Chloride 10 meq 200 In Water For Injection 1 100ml.bag @ 100 mls/hr IVPB Q1HR KANDICE Rx#: [id number] cefTRIAXone 1 gm In 50 50 Sodium Chloride 0.9% 50 ml @ 100 mls/hr IVPB Q24HR KANDICE Rx#:[id number] Oral 480 150 Tube Feeding 150 Output: Urine 1150 1150 600 Urine/Stool Mix 550 Other: Voiding Method Bedside Commode Bedside Commode Bedside Commode # Voids 0 - Exam GENERAL: The patient is lying in bed and is not in acute distress. She seemed mildly restless. NEUROLOGICAL: Higher mental function: The patient is awake, alert, oriented to self, place and time. Is following command. No aphasia and no neglect. Cranial nerves: The pupils are round, equal and reactive to light. Visual monge are full to confrontation throughout. Extraocular movement is intact no nystagmus is noted. Facial sensation is normal to touch throughout. The facial strength is normal throughout. Hearing is normal bilaterally to hand rub. Tongue is midline and moved [id number] without any difficulty. Has minimal dysarthria. Motor: Gait is deferred. The strength is 5/5 throughout. Normal tone and bulk. Has mild tremors of bilateral hands. Cerebellum: Normal finger to nose bilaterally. Sensation: Sensation is normal to touch throughout. Reflexes (right/left): 2+ throughout. Plantars are downgoing bilaterally. - Labs CBC & Chem 7: 08/27/20 03:44 08/27/20 13:17 Labs: Abnormal Lab Results - Last 24 Hours (Table) 08/26/20 08/27/20 08/27/20 Range/Units 15:19 03:44 03:44 RBC 2.76 L (3.80-5.40) m/uL Hgb 9.8 L (11.4-16.0) gm/dL Hct 30.2 L (34.0-46.0) % MCV 109.4 H (80.0-100.0) fL MCH 35.5 H (25.0-35.0) pg RDW 15.9 H (11.5-15.5) % Lymphocytes # (Manual) 0.76 L (1.0-4.8) k/uL Macrocytosis Marked A PT (9.0-12.0) sec INR (<1.2) Sodium 132 L (137-145) mmol/L Potassium 2.7 L* 2.7 L* (3.5-5.1) mmol/L Chloride 97 L (98-107) mmol/L BUN <2 L (7-17) mg/dL Creatinine 0.45 L (0.52-1.04) mg/dL Glucose 73 L (74-99) mg/dL Calcium 7.0 L (8.4-10.2) mg/dL Total Bilirubin 9.0 H (0.2-1.3) mg/dL AST 192 H (14-36) U/L ALT 56 H (4-34) U/L Alkaline Phosphatase 213 H (38-126) U/L Ammonia (<30) umol/L Lactate Dehydrogenase 804 H (313-618) U/L Creatine Kinase 339 H (30-135) U/L C-Reactive Protein 25.1 H (<10.0) mg/L Total Protein 5.9 L (6.3-8.2) g/dL Albumin 2.8 L (3.5-5.0) g/dL 08/27/20 08/27/20 Range/Units 03:44 03:44 RBC (3.80-5.40) m/uL Hgb (11.4-16.0) gm/dL Hct (34.0-46.0) % MCV (80.0-100.0) fL MCH (25.0-35.0) pg RDW (11.5-15.5) % Lymphocytes # (Manual) (1.0-4.8) k/uL Macrocytosis PT 13.2 H (9.0-12.0) sec INR 1.3 H (<1.2) Sodium (137-145) mmol/L Potassium (3.5-5.1) mmol/L Chloride (98-107) mmol/L BUN (7-17) mg/dL Creatinine (0.52-1.04) mg/dL Glucose (74-99) mg/dL Calcium (8.4-10.2) mg/dL Total Bilirubin (0.2-1.3) mg/dL AST (14-36) U/L ALT (4-34) U/L Alkaline Phosphatase (38-126) U/L Ammonia 34 H (<30) umol/L Lactate Dehydrogenase (313-618) U/L Creatine Kinase (30-135) U/L C-Reactive Protein (<10.0) mg/L Total Protein (6.3-8.2) g/dL Albumin (3.5-5.0) g/dL Microbiology - Last 24 Hours (Table) 08/24/20 17:55 Urine Culture - Final Urine,Voided Escherichia coli Assessment and Plan Assessment: This is a 50-year-old woman with a significant alcohol use, drinks about a pint of liquor daily and the last drink was about to 3 days ago presented to the emergency department on 08/24/2020 for sweating, feeling shaken and shortness of breath the last 2 days. She's also been feeling nauseous but no vomiting. Toxic metabolic encephalopathy due to alcohol withdrawal and also due to electrolyte imbalance from the alcohol use (her altered mental status seems mild). Delerium due to above and ICU stay. Mild Dysarthria (per this is not her baseline) likely due to above----improving. Less likely stroke. Hyponatremia due to alcohol abuse--improving Macrocytic anemia due to alcohol abuse Thrombocytopenia due to ongoing chronic alcohol use--improving Multiple Electrolyte imbalance (hypokalemia, hypomagnesemia, hyponatremia) due to alcohol use Diaphoresis, tremor of the extremities and shortness of breath due to alcohol withdrawal Jaundice with scleral icterus due to alcohol abuse Elevated liver function tests due to alcohol abuse--trending down Pulmonary distress due to positive coated 19 as well as a component of the alcohol withdrawal Alcohol abuse with last drink about 2 days ago History of hypothyroidism Plan: Continue Thiamine 100 mg 1 tablet twice a day. Vitamin B12: 1159 (high but that is considered normal). Rbc folate level: pending. Continue on vitamin B12 1000 g daily and folate 1 mg daily especially with a macrocytosis likely due to alcohol use. Ammonia level: 34 (trending down from day prior). Regarding the dysarthria not sure if this is the patient baseline the OR this is a new. Carotid duplex is reported as no hemodynamic significant stenosis of the proximal internal carotid arteries by Doppler criteria, and in direct measurement of carotid stenosis. Lipid panel is a triglyceride of 432, cholesterol of 196, LDL of 123, and HDL is 20. Recommend repeating it within a week. Ordered MRI of the brain to rule out any stroke especially that the since the stated that the patient has dysarthria and this is not her baseline and is concerned about a stroke which I think is unlikely. If it is a stroke then we will get the rest of the stroke workup after the MRI. I will not start the patient on aspirin or statins because stroke is not the top of my differential. An EEG is not warranted at this time since the patient does not have any seizure her mentation is likely toxic metabolic encephalopathy. Patient is on CIWA protocol will defer the management to the ICU as well as the primary team. Regarding the electrolyte imbalance would defer the management to the ICU/primary team. Patient was counseled on alcohol cessation. The plan was discussed with the patient's nurse. Mekhi Jorgensen M.D. Neuro-hospitalist Time with Patient: Less than 30
--- NOTE | 2020-08-27 13:01 | P.PN ---
Subjective Progress Note Date: 08/27/20 Principal diagnosis: Alcoholic liver disease, covid 19 positive This is day #3 the intensive care unit, patient has known history of chronic alcohol use and abuse hypothyroidism and depression. Drinks approximately a pint of rum every day presented to the emergency room with scleral icterus and overall jaundice concerned because she was coughing feeling terrible shaking sweating with dyspnea patient had had testing for occult blood 19 on 08/23/2020 was admitted to the intensive care unit secondary to lactic acidosis and overall poor condition. Objective - Vital Signs Vital signs: Vital Signs Temp 97.7 F 08/27/20 04:00 Pulse 94 08/27/20 11:00 Resp 29 H 08/27/20 11:00 BP 108/79 08/27/20 11:00 Pulse Ox 95 08/27/20 11:00 Intake & Output 08/26/20 08/27/20 08/27/20 18:59 06:59 18:59 Intake Total 2030 1400 350 Output Total 1150 1700 600 Balance 880 -300 -250 Weight 63.8 kg Intake: IV 1300 1100 300 Potassium Chloride 10 meq 400 In Water For Injection 1 100ml.bag @ 100 mls/hr IVPB Q1HR [facility] Rx#: [id number] Potassium Chloride 10 meq 100 In Water For Injection 1 100ml.bag @ 100 mls/hr IVPB Q1HR [facility] Rx#: [id number] Potassium Chloride 10 meq 100 In Water For Injection 1 100ml.bag @ 100 mls/hr IVPB Q1HR [facility] Rx#: [id number] Sodium Chloride 0.9% 1, 900 900 300 000 ml @ 75 mls/hr IV . [id number] [facility] Rx#:[id number] Intake, IV Titration 250 50 Amount Potassium Chloride 10 meq 200 In Water For Injection 1 100ml.bag @ 100 mls/hr IVPB Q1HR [facility] Rx#: [id number] cefTRIAXone 1 gm In 50 50 Sodium Chloride 0.9% 50 ml @ 100 mls/hr IVPB Q24HR [facility] Rx#:[id number] Oral 480 150 Tube Feeding 150 Output: Urine 1150 1150 600 Urine/Stool Mix 550 Other: Voiding Method Bedside Commode Bedside Commode Bedside Commode # Voids 0 - Exam General: [Patient awake, alert and oriented times 3. Dysarthria, scleral icterus HEENT: [PERRL. EOMI. No pharyngeal erythema or exudate.] Neck: [No adenopathy.] Cardiac: [Heart regular in rate and rhythm. No S3. No S4. No clicks, rubs. No murmur.] Lungs: [Clear to auscultation bilaterally.] Abdomen: [No mass. No organomegaly. Bowel sounds presnt and normoactive in all 4 quadrants.] Extremes: [No edema no cyanosis no claudication normal pulses] : Normal female genitalia Musculoskeletal: [No joint erythema, edema or tenderness.] Skin: icteris Neurologic: [No lateralizing deficits. CN II - XII grossly intact.] Lymphatic: [No adenopathy.] - Labs CBC & Chem 7: 08/27/20 03:44 08/27/20 03:44 Labs: Abnormal Lab Results - Last 24 Hours (Table) 08/26/20 08/27/20 08/27/20 Range/Units 15:19 03:44 03:44 RBC 2.76 L (3.80-5.40) m/uL Hgb 9.8 L (11.4-16.0) gm/dL Hct 30.2 L (34.0-46.0) % MCV 109.4 H (80.0-100.0) fL MCH 35.5 H (25.0-35.0) pg RDW 15.9 H (11.5-15.5) % Lymphocytes # (Manual) 0.76 L (1.0-4.8) k/uL Macrocytosis Marked A PT (9.0-12.0) sec INR (<1.2) Sodium 132 L (137-145) mmol/L Potassium 2.7 L* 2.7 L* (3.5-5.1) mmol/L Chloride 97 L (98-107) mmol/L BUN <2 L (7-17) mg/dL Creatinine 0.45 L (0.52-1.04) mg/dL Glucose 73 L (74-99) mg/dL Calcium 7.0 L (8.4-10.2) mg/dL Total Bilirubin 9.0 H (0.2-1.3) mg/dL AST 192 H (14-36) U/L ALT 56 H (4-34) U/L Alkaline Phosphatase 213 H (38-126) U/L Ammonia (<30) umol/L Lactate Dehydrogenase 804 H (313-618) U/L Creatine Kinase 339 H (30-135) U/L C-Reactive Protein 25.1 H (<10.0) mg/L Total Protein 5.9 L (6.3-8.2) g/dL Albumin 2.8 L (3.5-5.0) g/dL 08/27/20 08/27/20 Range/Units 03:44 03:44 RBC (3.80-5.40) m/uL Hgb (11.4-16.0) gm/dL Hct (34.0-46.0) % MCV (80.0-100.0) fL MCH (25.0-35.0) pg RDW (11.5-15.5) % Lymphocytes # (Manual) (1.0-4.8) k/uL Macrocytosis PT 13.2 H (9.0-12.0) sec INR 1.3 H (<1.2) Sodium (137-145) mmol/L Potassium (3.5-5.1) mmol/L Chloride (98-107) mmol/L BUN (7-17) mg/dL Creatinine (0.52-1.04) mg/dL Glucose (74-99) mg/dL Calcium (8.4-10.2) mg/dL Total Bilirubin (0.2-1.3) mg/dL AST (14-36) U/L ALT (4-34) U/L Alkaline Phosphatase (38-126) U/L Ammonia 34 H (<30) umol/L Lactate Dehydrogenase (313-618) U/L Creatine Kinase (30-135) U/L C-Reactive Protein (<10.0) mg/L Total Protein (6.3-8.2) g/dL Albumin (3.5-5.0) g/dL Microbiology - Last 24 Hours (Table) 08/24/20 17:55 Urine Culture - Final Urine,Voided Escherichia coli Assessment and Plan (1) Hypothyroid Current Visit: Yes Status: Acute Code(s): E03.9 - HYPOTHYROIDISM, UNSPECIFIED SNOMED Code(s): 95627990 (2) Alcohol withdrawal syndrome Current Visit: Yes Status: Acute Code(s): F10.239 - ALCOHOL DEPENDENCE WITH WITHDRAWAL, UNSPECIFIED SNOMED Code(s): 242924610 (3) COVID-19 Current Visit: Yes Status: Acute Code(s): U07.1 - COVID-19 SNOMED Code(s): 519956745 (4) Hypokalemia Current Visit: Yes Status: Acute Code(s): E87.6 - HYPOKALEMIA SNOMED Code(s): 19998916 (5) Hypomagnesemia Current Visit: Yes Status: Acute Code(s): E83.42 - HYPOMAGNESEMIA SNOMED Code(s): 400091634 (6) Lactic acidosis Current Visit: Yes Status: Acute Code(s): E87.2 - ACIDOSIS SNOMED Code(s): 91757537 Plan: ICU addmit 02 per nascan iv resusitation iv antibitics iv steroids [place] protocol alcohol withdrawal Id consultation Critical CARE consultation Time with Patient: Greater than 30
[2020-08-27] MEDS ORDERED: ACETAMINOPHEN TAB 325 MG TAB PO PRN (13:20)
[2020-08-27] MEDS: SODIUM CHLORIDE 0.9% 1,000 ML IV SCH (14:28)
[2020-08-27] MEDS ORDERED: POTASSIUM CHLORIDE ER 20 MEQ TAB.ER PO SCH (15:00)
[2020-08-27 15:38] LABS: Ferritin 2565.2 ng/mL (10.0-291.0)
[2020-08-28] MEDS: MORPHINE SULFATE 2 MG/ML SYRINGE IV PRN ×2 (01:35→09:15)
[2020-08-28] MEDS: LACTULOSE 20 GM/30 ML CUP PO SCH ×4 (01:42→20:52)
[2020-08-28] MEDS ORDERED: POTASSIUM CHLORIDE ER 20 MEQ TAB.ER PO SCH (02:00)
[2020-08-28] MEDS: SODIUM CHLORIDE 0.9% 1,000 ML IV SCH ×3 (03:56→23:47)
[2020-08-28] MEDS: MAGNESIUM SULFATE-D5W PMX 1 GM in DEXTROSE/WATER 1 100ML.BAG IVPB SCH ×3 (06:04→13:33)
[2020-08-28] MEDS: THIAMINE 100 MG TAB PO SCH ×2 (06:53→16:54)
[2020-08-28 08:32] LABS: HCT 29.9 % (34.0-46.0); HGB 10.1 gm/dL (11.4-16.0); MCH 37.1 pg (25.0-35.0); MCHC 33.8 g/dL (31.0-37.0); MCV 109.5 fL (80.0-100.0); Macrocytosis Marked; Platelet Count 240 k/uL (150-450); RBC 2.73 m/uL (3.80-5.40); RDW 15.7 % (11.5-15.5)
[2020-08-28 08:41] LABS: ALT 54 U/L (4-34); AST 180 U/L (14-36); African American GFR (CKD) >90 (>60 ml/min/1.73 sqM); Albumin 2.8 g/dL (3.5-5.0); Alkaline Phosphatase 206 U/L (38-126); Anion Gap 5 mmol/L; Blood Urea Nitrogen <2 mg/dL (7-17); C Reactive Protein 18.1 mg/L (<10.0); Calcium 8.2 mg/dL (8.4-10.2); Carbon Dioxide 28 mmol/L (22-30); Chloride 102 mmol/L (98-107); Creatine Kinase 145 U/L (30-135); Glucose 110 mg/dL (74-99); LDH 749 U/L (313-618); Non-African American GFR(CKD) >90 (>60 ml/min/1.73 sqM); Potassium 3.3 mmol/L (3.5-5.1); Sodium 135 mmol/L (137-145); Total Bilirubin 8.6 mg/dL (0.2-1.3)
[2020-08-28] MEDS: PANTOPRAZOLE 40 MG/10 ML VIAL IVP SCH ×2 (09:08→20:52)
[2020-08-28] MEDS: ENOXAPARIN 30 MG/0.3 ML SYRINGE SQ SCH (09:08)
[2020-08-28] MEDS: FOLIC ACID 1 MG TAB PO SCH (09:08)
[2020-08-28] MEDS: CYANOCOBALAMIN 500 MCG TAB PO SCH (09:08)
[2020-08-28] MEDS: RIFAXIMIN 550 MG TABLET PO SCH ×2 (09:09→20:52)
--- NOTE | 2020-08-28 09:20 | PN ---
PROGRESS NOTE PULMONARY/CRITICAL CARE PROGRESS NOTE: DATE OF SERVICE: 08/28/2020 This is a 50-year-old female with a history of mental status changes, secondary to alcoholic liver disease and alcoholic cirrhosis with hyperammonemia. Currently, the patient is on room air. She is getting saline at 75 mL an hour. When she was admitted, her diagnoses included chronic alcohol abuse, hyperbilirubinemia with jaundice, electrolyte disturbance including hypokalemia and hyponatremia, hypothyroidism, chronic depression, chronic anemia, thrombocytopenia, alcohol- induced coagulopathy, and urinary tract infection. Currently, she is doing better. She could be transferred out of the ICU today to the general medical floor. PHYSICAL EXAMINATION: VITAL SIGNS: Current vital signs are reviewed. Temperature 98.3, heart rate 85, respiratory rate 14, blood pressure 102/82, mean 88, saturations are 94% on room air. Appears in no acute distress. HEENT: Examination is grossly unremarkable. Mucous membranes are dry. No oral lesions. NECK: Supple. Full range of motion. No adenopathy. Neck veins are flat. CARDIOVASCULAR: Examination reveals regular rhythm rate. Heart rate 85. S1, S2 normal. No S3, S4, or murmur. LUNGS: Reveal relatively clear breath sounds. Maybe a few scattered mild rhonchi. No wheezes or crackles. ABDOMEN: Soft, but distended. Bowel sounds are heard. EXTREMITIES: Intact. No cyanosis, clubbing, or edema. SKIN: Reveals jaundice. No rashes. NEUROLOGIC: Examination is improved. She is still a bit agitated and confused, but certainly better than she was. LABORATORY DATA: Reviewed. Today, sodium 135, potassium 3.3, chloride 102, CO2 28, BUN and creatinine were less than 2 and 0.48, glucose is 110, bilirubin is 8.6, AST is 180, ALT 54, LDH is 749, and CK 145. Albumin 2.8. Microbiology showing E coli in the urine. IMAGING: Chest x-ray is reviewed. CURRENT MEDICATIONS: Reviewed. The patient is on Tylenol, Cepacol, Rocephin, vitamin B12, Lovenox, folic acid, lactulose, levothyroxine, Ativan, magnesium, morphine, Narcan, Protonix, potassium replacement, Xifaxan, saline, and thiamine. ASSESSMENT: 1. Mental status changes secondary to profound electrolyte disturbance, and severe alcoholic liver disease with alcoholic cirrhosis and hepatic encephalopathy, somewhat improved. 2. Chronic alcohol abuse. 3. Hyperbilirubinemia with jaundice. 4. Hypokalemia. 5. Hyponatremia. 6. Hypothyroidism. 7. Chronic anemia. 8. Chronic depression. 9. Alcohol-induced thrombocytopenia. 10.Hyperammonemia. 11.Urinary tract infection secondary to Escherichia coli. 12.Alcohol induced coagulopathy. 13.COVID 19 infection with minimal pulmonary issues. PLAN: The patient could be transferred out to the general medical floor. We will switch her Synthroid to oral. Additional recommendations and suggestions are forthcoming. Continue with Ativan as needed. Overall prognosis is poor. We counseled her about the importance of smoking cessation. She remains on Rocephin for her urinary tract infection. MMODL / IJN: [id number] / MTDArely
[2020-08-28 10:05] LABS: Anisocytosis (M) Present; Band Neutrophils % 1 %; Eosinophils # (M) 0.05 k/uL (0-0.7); Hypochromasia (M) Present; Metamyelocytes # (M) 0.05 k/uL (0); Metamyelocytes % 1 %; Monocytes # (M) 0.36 k/uL (0-1.0); Myelocytes % 2 %; Neutrophils % (M) 67 %; Nucleated Red Blood Cells 1 /100 WBC (0-0); Polychromasia Present; Total Cells Counted 200; WBC 5.2 k/uL (3.8-10.6)
[2020-08-28 10:06] LABS: Target Cells Present
[2020-08-28] MEDS ORDERED: Potassium Replacement Protocol 1 EACH MISC MISCELLANE PRN (11:30)
[2020-08-28] MEDS ORDERED: Magnesium Replacement Protocol 1 EACH MISC MISCELLANE PRN (11:31)
--- NOTE | 2020-08-28 11:41 | PN ---
PROGRESS NOTE DATE OF DICTATION: August 28, 2020 Patient is a 50-year-old pleasant white female with history of acute alcoholic hepatitis and alcoholic cirrhosis of the liver, admitted to the hospital with altered mental status and alcohol withdrawal. She is doing better. She continues to remain somewhat slow and sluggish. She denies any new symptoms. PHYSICAL EXAMINATION: Appears comfortable. Vital signs stable. Blood pressure 102/82, pulse 85, temperature 98.3. HEENT examination unremarkable. Conjunctivae pink. Sclerae deeply icteric. Oral cavity no lesions. Neck no JVD. No lymph node enlargement. CHEST: Clear to auscultation. HEART: Regular rate and rhythm. ABDOMEN: Soft. Liver is palpable 3 cm below the right costal margin. Rest of the abdomen was benign. Extremities: No pedal edema. Neuro he is alert, oriented to name and place, not to time. LABS: From today WBC 5.2, hemoglobin 10.1, platelets 240. Bilirubin is 8.6, AST 180, ALT 54, alkaline phosphatase 206. IMPRESSION: 1. Acute alcoholic hepatitis superimposed on alcoholic cirrhosis of the liver with elevated LFTs and jaundice. 2. Covid 19 infection. 3. Hepatic encephalopathy gradually improving. 4. Alcohol withdrawal. 5. Heavy alcohol abuse. 6. Covid 19 infection. RECOMMENDATIONS: 1. Continue with oral Xifaxan and lactulose and titrate so that she has 3 bowel movements daily. 2. Increase ambulation. 3. Abstinence from alcohol. 4. Continue to watch for alcohol withdrawal. 5. Continue with symptomatic and supportive care and we will follow with you closely. Thank you for this consultation. MMODL / IJN: [id number] /
[2020-08-28] MEDS ORDERED: MAGNESIUM SULFATE-D5W PMX 1 GM in DEXTROSE/WATER 1 100ML.BAG IVPB SCH (11:45)
[2020-08-28] MEDS: POTASSIUM CHLORIDE ER 20 MEQ TAB.ER PO SCH ×2 (11:54→11:55)
[2020-08-28 12:48] LABS: Ferritin 1524.5 ng/mL (10.0-291.0)
--- NOTE | 2020-08-28 13:30 | P.PN ---
Subjective Progress Note Date: 08/28/20 Principal diagnosis: Alcoholic liver disease, covid 19 positive This is day #3 the intensive care unit, patient has known history of chronic alcohol use and abuse hypothyroidism and depression. Drinks approximately a pint of rum every day presented to the emergency room with scleral icterus and overall jaundice concerned because she was coughing feeling terrible shaking sweating with dyspnea patient had had testing for occult blood 19 on 08/23/2020 was admitted to the intensive care unit secondary to lactic acidosis and overall poor condition. Objective - Vital Signs Vital signs: Vital Signs Temp 98.2 F 08/28/20 11:42 Pulse 93 08/28/20 11:42 Resp 16 08/28/20 11:42 BP 109/77 08/28/20 11:42 Pulse Ox 95 08/28/20 11:42 Intake & Output 08/27/20 08/28/20 08/28/20 18:59 06:59 18:59 Intake Total 975 1200 400 Output Total 1151 1450 Balance -176 -250 400 Weight 61.4 kg Intake: IV 925 900 400 Magnesium Sulfate-D5w Pmx 100 1 gm In Dextrose/Water 1 100ml.bag @ 100 mls/hr IVPB Q1H [facility] Rx#: [id number] Potassium Chloride 10 meq 100 In Water For Injection 1 100ml.bag @ 100 mls/hr IVPB Q1HR [facility] Rx#: [id number] Sodium Chloride 0.9% 1, 825 900 300 000 ml @ 75 mls/hr IV . [id number] [facility] Rx#:[id number] Intake, IV Titration 50 Amount cefTRIAXone 1 gm In 50 Sodium Chloride 0.9% 50 ml @ 100 mls/hr IVPB Q24HR [facility] Rx#:[id number] Oral 300 Output: Urine 1151 700 Urine/Stool Mix 750 Other: Voiding Method Bedside Commode Bedside Commode Bedside Commode # Voids 0 1 # Bowel Movements 1 - Exam General: [Patient awake, alert and oriented times 3. Dysarthria, scleral icterus HEENT: [PERRL. EOMI. No pharyngeal erythema or exudate.] Neck: [No adenopathy.] Cardiac: [Heart regular in rate and rhythm. No S3. No S4. No clicks, rubs. No murmur.] Lungs: [Clear to auscultation bilaterally.] Abdomen: [No mass. No organomegaly. Bowel sounds presnt and normoactive in all 4 quadrants.] Extremes: [No edema no cyanosis no claudication normal pulses] : Normal female genitalia Musculoskeletal: [No joint erythema, edema or tenderness.] Skin: icteris Neurologic: [No lateralizing deficits. CN II - XII grossly intact.] Lymphatic: [No adenopathy.] - Labs CBC & Chem 7: 08/28/20 08:17 08/28/20 08:17 Labs: Abnormal Lab Results - Last 24 Hours (Table) 08/27/20 08/27/20 08/28/20 Range/Units 03:44 13:17 03:31 RBC (3.80-5.40) m/uL Hgb (11.4-16.0) gm/dL Hct (34.0-46.0) % MCV (80.0-100.0) fL MCH (25.0-35.0) pg RDW (11.5-15.5) % Metamyelocytes # (Man) (0) k/uL Myelocytes # (Manual) (0) k/uL Nucleated RBCs (0-0) /100 WBC Macrocytosis Sodium (137-145) mmol/L Potassium 3.2 L (3.5-5.1) mmol/L BUN (7-17) mg/dL Creatinine (0.52-1.04) mg/dL Glucose (74-99) mg/dL Calcium (8.4-10.2) mg/dL Magnesium (1.6-2.3) mg/dL Ferritin 2565.2 H (10.0-291.0) ng/mL Total Bilirubin (0.2-1.3) mg/dL AST (14-36) U/L ALT (4-34) U/L Alkaline Phosphatase (38-126) U/L Ammonia 41 H (<30) umol/L Lactate Dehydrogenase (313-618) U/L Creatine Kinase (30-135) U/L C-Reactive Protein (<10.0) mg/L Total Protein (6.3-8.2) g/dL Albumin (3.5-5.0) g/dL 08/28/20 08/28/20 08/28/20 Range/Units 03:31 08:17 08:17 RBC 2.73 L (3.80-5.40) m/uL Hgb 10.1 L (11.4-16.0) gm/dL Hct 29.9 L (34.0-46.0) % MCV 109.5 H (80.0-100.0) fL MCH 37.1 H (25.0-35.0) pg RDW 15.7 H (11.5-15.5) % Metamyelocytes # (Man) 0.05 H (0) k/uL Myelocytes # (Manual) 0.10 H (0) k/uL Nucleated RBCs 1 H (0-0) /100 WBC Macrocytosis Marked A Sodium 135 L (137-145) mmol/L Potassium 3.3 L (3.5-5.1) mmol/L BUN <2 L (7-17) mg/dL Creatinine 0.48 L (0.52-1.04) mg/dL Glucose 110 H (74-99) mg/dL Calcium 8.2 L (8.4-10.2) mg/dL Magnesium 1.5 L (1.6-2.3) mg/dL Ferritin 1524.5 H (10.0-291.0) ng/mL Total Bilirubin 8.6 H (0.2-1.3) mg/dL AST 180 H (14-36) U/L ALT 54 H (4-34) U/L Alkaline Phosphatase 206 H (38-126) U/L Ammonia (<30) umol/L Lactate Dehydrogenase 749 H (313-618) U/L Creatine Kinase 145 H (30-135) U/L C-Reactive Protein 18.1 H (<10.0) mg/L Total Protein 6.0 L (6.3-8.2) g/dL Albumin 2.8 L (3.5-5.0) g/dL Assessment and Plan (1) Hypothyroid Current Visit: Yes Status: Acute Code(s): E03.9 - HYPOTHYROIDISM, UNSPECIFIED SNOMED Code(s): 02475016 (2) Alcohol withdrawal syndrome Current Visit: Yes Status: Acute Code(s): F10.239 - ALCOHOL DEPENDENCE WITH WITHDRAWAL, UNSPECIFIED SNOMED Code(s): 090102246 (3) COVID-19 Current Visit: Yes Status: Acute Code(s): U07.1 - COVID-19 SNOMED Code(s): 161695060 (4) Hypokalemia Current Visit: Yes Status: Acute Code(s): E87.6 - HYPOKALEMIA SNOMED Code(s): 50496339 (5) Hypomagnesemia Current Visit: Yes Status: Acute Code(s): E83.42 - HYPOMAGNESEMIA SNOMED Code(s): 483274196 (6) Lactic acidosis Current Visit: Yes Status: Acute Code(s): E87.2 - ACIDOSIS SNOMED Code(s): 57033987 Plan: ICU addmit Positive covid by pcr 02 per nascan iv resusitation iv antibitics iv steroids CIWA protocol alcohol withdrawal Id consultation Critical CARE consultation Time with Patient: Greater than 30
--- NOTE | 2020-08-28 15:39 | P.PN ---
Subjective Progress Note Date: 08/28/20 Patient was seen at bedside and she stated that she's doing well. She stated that the she sounds were clear today compared to her initial presentation. She denies of any weakness of any numbness. Objective - Vital Signs Vital signs: Vital Signs Temp 98.2 F 08/28/20 11:42 Pulse 93 08/28/20 11:42 Resp 16 08/28/20 11:42 BP 109/77 08/28/20 11:42 Pulse Ox 95 08/28/20 11:42 Intake & Output 08/27/20 08/28/20 08/28/20 18:59 06:59 18:59 Intake Total 975 1200 400 Output Total 1151 1450 Balance -176 -250 400 Weight 61.4 kg Intake: IV 925 900 400 Magnesium Sulfate-D5w Pmx 100 1 gm In Dextrose/Water 1 100ml.bag @ 100 mls/hr IVPB Q1H K[facility]ICE Rx#: [id number] Potassium Chloride 10 meq 100 In Water For Injection 1 100ml.bag @ 100 mls/hr IVPB Q1HR KANDICE Rx#: [id number] Sodium Chloride 0.9% 1, 825 900 300 000 ml @ 75 mls/hr IV . [id number] K[facility]ICE Rx#:[id number] Intake, IV Titration 50 Amount cefTRIAXone 1 gm In 50 Sodium Chloride 0.9% 50 ml @ 100 mls/hr IVPB Q24HR KANDICE Rx#:[id number] Oral 300 Output: Urine 1151 700 Urine/Stool Mix 750 Other: Voiding Method Bedside Commode Bedside Commode Bedside Commode # Voids 0 1 # Bowel Movements 1 - Exam GENERAL: The patient is lying in bed and is not in acute distress. She seemed mildly restless. NEUROLOGICAL: Higher mental function: The patient is awake, alert, oriented to self, place and time. Is following command. No aphasia and no neglect. Cranial nerves: The pupils are round, equal and reactive to light. Visual monge are full to confrontation throughout. Extraocular movement is intact no nystagmus is noted. Facial sensation is normal to touch throughout. The facial strength is normal throughout. Hearing is normal bilaterally to hand rub. Tongue is midline and moved [id number] without any difficulty. No dysarthria. Motor: Gait is deferred. The strength is 5/5 throughout. Normal tone and bulk. Has mild tremors of bilateral hands. Cerebellum: Normal finger to nose bilaterally. Sensation: Sensation is normal to touch throughout. Reflexes (right/left): 2+ throughout. Plantars are downgoing bilaterally. - Labs CBC & Chem 7: 08/28/20 08:17 08/28/20 08:17 Labs: Abnormal Lab Results - Last 24 Hours (Table) 08/27/20 08/28/20 08/28/20 Range/Units 03:44 03:31 03:31 RBC (3.80-5.40) m/uL Hgb (11.4-16.0) gm/dL Hct (34.0-46.0) % MCV (80.0-100.0) fL MCH (25.0-35.0) pg RDW (11.5-15.5) % Metamyelocytes # (Man) (0) k/uL Myelocytes # (Manual) (0) k/uL Nucleated RBCs (0-0) /100 WBC Macrocytosis Sodium (137-145) mmol/L Potassium (3.5-5.1) mmol/L BUN (7-17) mg/dL Creatinine (0.52-1.04) mg/dL Glucose (74-99) mg/dL Calcium (8.4-10.2) mg/dL Magnesium 1.5 L (1.6-2.3) mg/dL Ferritin 2565.2 H (10.0-291.0) ng/mL Total Bilirubin (0.2-1.3) mg/dL AST (14-36) U/L ALT (4-34) U/L Alkaline Phosphatase (38-126) U/L Ammonia 41 H (<30) umol/L Lactate Dehydrogenase (313-618) U/L Creatine Kinase (30-135) U/L C-Reactive Protein (<10.0) mg/L Total Protein (6.3-8.2) g/dL Albumin (3.5-5.0) g/dL 08/28/20 08/28/20 Range/Units 08:17 08:17 RBC 2.73 L (3.80-5.40) m/uL Hgb 10.1 L (11.4-16.0) gm/dL Hct 29.9 L (34.0-46.0) % MCV 109.5 H (80.0-100.0) fL MCH 37.1 H (25.0-35.0) pg RDW 15.7 H (11.5-15.5) % Metamyelocytes # (Man) 0.05 H (0) k/uL Myelocytes # (Manual) 0.10 H (0) k/uL Nucleated RBCs 1 H (0-0) /100 WBC Macrocytosis Marked A Sodium 135 L (137-145) mmol/L Potassium 3.3 L (3.5-5.1) mmol/L BUN <2 L (7-17) mg/dL Creatinine 0.48 L (0.52-1.04) mg/dL Glucose 110 H (74-99) mg/dL Calcium 8.2 L (8.4-10.2) mg/dL Magnesium (1.6-2.3) mg/dL Ferritin 1524.5 H (10.0-291.0) ng/mL Total Bilirubin 8.6 H (0.2-1.3) mg/dL AST 180 H (14-36) U/L ALT 54 H (4-34) U/L Alkaline Phosphatase 206 H (38-126) U/L Ammonia (<30) umol/L Lactate Dehydrogenase 749 H (313-618) U/L Creatine Kinase 145 H (30-135) U/L C-Reactive Protein 18.1 H (<10.0) mg/L Total Protein 6.0 L (6.3-8.2) g/dL Albumin 2.8 L (3.5-5.0) g/dL Assessment and Plan Assessment: This is a 50-year-old woman with a significant alcohol use, drinks about a pint of liquor daily and the last drink was about to 3 days ago presented to the emergency department on 08/24/2020 for sweating, feeling shaken and shortness of breath the last 2 days. She's also been feeling nauseous but no vomiting. Toxic metabolic encephalopathy due to alcohol withdrawal and also due to electrolyte imbalance from the alcohol use (her altered mental status seems mild)--improved Mild Dysarthria (per this is not her baseline) likely due to above----resolved. Less likely stroke. Hyponatremia due to alcohol abuse--improving Macrocytic anemia due to alcohol abuse Thrombocytopenia due to ongoing chronic alcohol use--improving Multiple Electrolyte imbalance (hypokalemia, hypomagnesemia, hyponatremia) due to alcohol use Diaphoresis, tremor of the extremities and shortness of breath due to alcohol withdrawal Jaundice with scleral icterus due to alcohol abuse Elevated liver function tests due to alcohol abuse--trending down Pulmonary distress due to positive coated 19 as well as a component of the alcohol withdrawal Alcohol abuse with last drink about 2 days ago History of hypothyroidism Plan: Continue Thiamine 100 mg 1 tablet twice a day. Vitamin B12: 1159 (high but that is considered normal). Rbc folate level: pending. Continue on vitamin B12 1000 g daily and folate 1 mg daily especially with a macrocytosis likely due to alcohol use. Ammonia level: 34 (trending down from day prior). Carotid duplex is reported as no hemodynamic significant stenosis of the proximal internal carotid arteries by Doppler criteria, and in direct measurement of carotid stenosis. Lipid panel is a triglyceride of 432, cholesterol of 196, LDL of 123, and HDL is 20. Recommend repeating it within a week. MRI Brain performed on 08/27/2020 to rule out any stroke especially that the since the stated that the patient has dysarthria and this is not her baseline and is concerned about a stroke which I think is unlikely. There is a problemc with PAC system and no report or images. If it is a stroke then we will get the rest of the stroke workup after the MRI. I will not start the patient on aspirin or statins because stroke is not the top of my differential. An EEG is not warranted at this time since the patient does not have any seizure her mentation is likely toxic metabolic encephalopathy. Patient is on CIWA protocol will defer the management to the ICU as well as the primary team. Regarding the electrolyte imbalance would defer the management to the ICU/primary team. Patient was counseled on alcohol cessation. The plan was discussed with the patient and her nurse. There is no neurology coverage this weekend. Please Perfect Serve if needed. Dr. Rhoades will start coverage this coming-up Monday. Mekhi Jorgensen M.D. Neuro-hospitalist Time with Patient: Less than 30
[2020-08-28] MEDS: LEVOTHYROXINE IVP 100 MCG/5 ML VIAL IV SCH (22:45)
[2020-08-29] MEDS: LEVOTHYROXINE 100 MCG TAB PO SCH (05:49)
[2020-08-29 07:18] LABS: Anisocytosis Slight; HCT 30.8 % (34.0-46.0); HGB 9.9 gm/dL (11.4-16.0); MCH 35.9 pg (25.0-35.0); MCHC 32.3 g/dL (31.0-37.0); MCV 111.1 fL (80.0-100.0); Macrocytosis Marked; Mean Platelet Volume 9.4; Platelet Count 285 k/uL (150-450); RBC 2.77 m/uL (3.80-5.40); RDW 16.4 % (11.5-15.5); WBC 7.3 k/uL (3.8-10.6)
[2020-08-29 07:48] LABS: Band Neutrophils % 2 %; Basophils # (M) 0.07 k/uL (0-0.2); Lymphocytes # (M) 1.39 k/uL (1.0-4.8); Metamyelocytes # (M) 0.07 k/uL (0); Metamyelocytes % 1 %; Monocytes # (M) 0.88 k/uL (0-1.0); Neutrophils % (M) 65 %; Nucleated Red Blood Cells 0 /100 WBC (0-0); Total Cells Counted 100
[2020-08-29] MEDS: THIAMINE 100 MG TAB PO SCH ×2 (09:13→17:47)
[2020-08-29] MEDS: FOLIC ACID 1 MG TAB PO SCH (09:13)
[2020-08-29] MEDS: ENOXAPARIN 30 MG/0.3 ML SYRINGE SQ SCH (09:13)
[2020-08-29] MEDS: CYANOCOBALAMIN 500 MCG TAB PO SCH (09:13)
[2020-08-29] MEDS: PANTOPRAZOLE 40 MG/10 ML VIAL IVP SCH ×2 (09:14→21:42)
[2020-08-29] MEDS: RIFAXIMIN 550 MG TABLET PO SCH ×2 (09:14→21:42)
[2020-08-29] MEDS: LACTULOSE 20 GM/30 ML CUP PO SCH ×3 (09:14→21:42)
[2020-08-29 09:56] LABS: ALT 52 U/L (8-44); AST 156 U/L (13-35); Albumin/Globulin Ratio 1.08 (1.60-3.17); Alkaline Phosphatase 195 U/L (41-126); Blood Urea Nitrogen <5.0 mg/dL (9.0-27.0); Calcium 8.2 mg/dL (8.7-10.3); Chloride 100 mmol/L (96-109); Creatine Kinase 99 U/L (26-186); Globulin 2.5 g/dL (1.6-3.3); Glucose 81 mg/dL (70-110); LDH 327 U/L (120-246); Magnesium 1.2 mg/dL (1.5-2.4); Non-African American GFR(CKD) 111.3 (60.0-200.0); Potassium 3.2 mmol/L (3.5-5.5); Sodium 136 mmol/L (135-145); Total Bilirubin 7.5 mg/dL (0.2-1.2); Total Protein 5.2 g/dL (6.2-8.2)
--- NOTE | 2020-08-29 10:44 | PN ---
PROGRESS NOTE DATE OF SERVICE: 08/29/2020 INTERVAL HISTORY: Patient is a 50-year-old white female admitted to the hospital with acute alcoholic hepatitis superimposed on alcoholic cirrhosis and alcohol withdrawal. She continues to still remain somewhat slightly confused. She denies any symptoms of abdominal pain. No nausea, vomiting. PHYSICAL EXAMINATION: GENERAL: Appears comfortable, no apparent distress. VITAL SIGNS: Stable. Blood pressure is 109/75, pulse rate 103, temperature 99. HEENT: Examination unremarkable. Conjunctivae are pink. Sclerae anicteric. Oral cavity no lesions. NECK: No JVD. No lymph node enlargement. CHEST: Clear to auscultation. HEART: Regular rate and rhythm. ABDOMEN: Soft. Liver was palpable 3 cm below the right costal margin. Mild tenderness. EXTREMITIES: No pedal edema except mild tremors noted. NEUROLOGIC: Alert and oriented x3. No focal deficits. LABS: WBC 7.3, hemoglobin 9.9, platelets normal, LFTs are pending. IMPRESSION: 1. Acute alcoholic hepatitis superimposed on alcoholic cirrhosis of the liver. 2. Mild hepatic encephalopathy. Last ammonia level is 50. Remains on lactulose and Xifaxan and having 3-4 bowel movements daily. 3. Alcohol withdrawal with mild tremors. 4. History of heavy alcohol abuse. RECOMMENDATIONS: 1. Continue with symptomatic and supportive care. 2. Monitor LFTs on a daily basis. 3. Continue with oral Xifaxan and lactulose and titrate so that she has 3 bowel movements daily. 4. Repeat CBC in the morning and will follow with you closely. Thank you for this consultation. MMODL / IJN: [id number] /
[2020-08-29] MEDS ORDERED: Magnesium Replacement Protocol 1 EACH MISC MISCELLANE PRN (11:03)
[2020-08-29] MEDS ORDERED: Potassium Replacement Protocol 1 EACH MISC MISCELLANE PRN (11:04)
--- NOTE | 2020-08-29 11:22 | P.PN ---
Subjective Progress Note Date: 08/29/20 Principal diagnosis: Alcoholic liver disease The patient is seen today 08/26/2020 in follow-up in the intensive care unit. She has a history of chronic alcohol use and chronic alcohol abuse, hypothyroidism, depression. She drinks approximately a pint of rum every day. She had presented to the emergency room on 08/24/2020 with complaints of sweating, shaking, shortness of breath and not feeling well. She did test positive for CoVID 19 on 08/23/2020. She was admitted to the intensive care unit for severe alcoholic liver disease and probable alcoholic cirrhosis. She was found to have a profound electrolyte disturbance including hypomagnesemia, hypokalemia, hyponatremia. Also hyperbilirubinemia with jaundice. Presently, she is more awake and alert. She is sitting up in bed. She is tolerating liquids. Computed tomography scan of the abdomen revealed significant fatty replacement of the liver. There is some infiltrate/atelectasis at the lung bases. Computed tomography scan of the brain revealed no acute intracranial abnormality. Carotid Dopplers revealed no hemodynamic significant stenosis bilaterally. She is maintaining O2 saturations in the 90s on room air. She's afebrile. Urine culture showing gram-negative bacilli. White count 6.2. Hemoglobin 10.4. Platelet count 130,000. Sodium 128. Potassium 2.7. Creatinine 0.48. AST 230. ALT 65. Ammonia level LIII. LDH 888. C-reactive protein 29.3. Albumin 2.8. She is currently on ceftriaxone, folic acid, Lovenox, thiamine. 0.9 normal saline at 75 ML's per hour. Protonix. She remains on the CIID protocol. The patient is seen today 08/29/2020 in follow-up on the regular medical floor. She is currently awake and alert in no acute distress. Maintaining O2 saturations in the mid 90s on room air. She's been afebrile. Hemodynamically stable. Urine culture was positive for E. coli. White count 7.3. Hemoglobin 9.9. MCV 111. Sodium 136. Potassium 3.2. Creatinine 0.5. AST 156. ALT 52. LDH 327. She remains on ceftriaxone. Lovenox for DVT prophylaxis. [facility] protocol. Objective - Vital Signs Vital signs: Vital Signs Temp 99.0 F 08/29/20 05:00 Pulse 103 H 08/29/20 05:00 Resp 20 08/29/20 05:00 BP 109/75 08/29/20 05:00 Pulse Ox 95 08/29/20 05:00 Intake & Output 08/28/20 08/29/20 08/29/20 18:59 06:59 18:59 Intake Total 1400 600 Balance 1400 600 Intake: IV 1000 600 Magnesium Sulfate-D5w Pmx 100 1 gm In Dextrose/Water 1 100ml.bag @ 100 mls/hr IVPB Q1H [facility]ICE Rx#: [id number] Sodium Chloride 0.9% 1, 900 600 000 ml @ 75 mls/hr IV . [id number] KANDICE Rx#:[id number] Oral 400 Other: Voiding Method Bedside Commode Bedside Commode # Voids 1 3 1 # Bowel Movements 2 - Exam GENERAL EXAM: Alert, jaundice, pleasant 50-year-old female, on room air, comf ortable in no apparent distress. HEAD: Normocephalic. EYES: Normal reaction of pupils, equal size. NOSE: Clear with pink turbinates. THROAT: No erythema or exudates. NECK: No masses, no JVD. CHEST: No chest wall deformity. LUNGS: Equal air entry with crackles in the bilateral posterior bases CVS: S1 and S2 normal with no audible murmur, regular rhythm. ABDOMEN: Positive hepatosplenomegaly, normal bowel sounds, no guarding or rigidity. SPINE: No scoliosis or deformity SKIN: No rashes CENTRAL NERVOUS SYSTEM: No focal deficits, tone is normal in all 4 extremities. EXTREMITIES: There is no peripheral edema. No clubbing, no cyanosis. Peripheral pulses are intact. - Labs CBC & Chem 7: 08/29/20 06:17 08/29/20 06:17 Labs: Abnormal Lab Results - Last 24 Hours (Table) 08/27/20 08/28/20 08/29/20 Range/Units 15:18 08:17 06:17 RBC (3.80-5.40) m/uL Hgb (11.4-16.0) gm/dL Hct (34.0-46.0) % MCV (80.0-100.0) fL MCH (25.0-35.0) pg RDW (11.5-15.5) % Metamyelocytes # (Man) (0) k/uL Macrocytosis Potassium 3.2 L (3.5-5.5) mmol/L BUN <5.0 L (9.0-27.0) mg/dL Creatinine 0.5 L (0.6-1.5) mg/dL Calcium 8.2 L (8.7-10.3) mg/dL Magnesium 1.2 L (1.5-2.4) mg/dL Ferritin 1524.5 H (10.0-291.0) ng/mL Total Bilirubin 7.5 H (0.2-1.2) mg/dL AST 156 H (13-35) U/L ALT 52 H (8-44) U/L Alkaline Phosphatase 195 H (41-126) U/L Ammonia (<30) umol/L Lactate Dehydrogenase 327 H (120-246) U/L Total Protein 5.2 L (6.2-8.2) g/dL Albumin 2.70 L (3.80-4.90) g/dL Albumin/Globulin Ratio 1.08 L (1.60-3.17) g/dL Coronavirus (PCR) Detected A (Not Detected) 08/29/20 08/29/20 Range/Units 06:17 06:17 RBC 2.77 L (3.80-5.40) m/uL Hgb 9.9 L (11.4-16.0) gm/dL Hct 30.8 L (34.0-46.0) % MCV 111.1 H (80.0-100.0) fL MCH 35.9 H (25.0-35.0) pg RDW 16.4 H (11.5-15.5) % Metamyelocytes # (Man) 0.07 H (0) k/uL Macrocytosis Marked A Potassium (3.5-5.5) mmol/L BUN (9.0-27.0) mg/dL Creatinine (0.6-1.5) mg/dL Calcium (8.7-10.3) mg/dL Magnesium (1.5-2.4) mg/dL Ferritin (10.0-291.0) ng/mL Total Bilirubin (0.2-1.2) mg/dL AST (13-35) U/L ALT (8-44) U/L Alkaline Phosphatase (41-126) U/L Ammonia 50 H (<30) umol/L Lactate Dehydrogenase (120-246) U/L Total Protein (6.2-8.2) g/dL Albumin (3.80-4.90) g/dL Albumin/Globulin Ratio (1.60-3.17) g/dL Coronavirus (PCR) (Not Detected) Assessment and Plan Assessment: 1 Altered mental status secondary to profound electrolyte disturbance secondary to severe alcoholic liver disease and probable alcoholic cirrhosis 2 Chronic alcohol abuse 3 Hyperbilirubinemia with jaundice 4 Hypokalemia 5 Hypothyroidism 6 Chronic depression 7 Chronic anemia 8 Thrombocytopenia 9 Hyperammonemia 10 Urinary tract infection secondary to E. coli Plan: The patient was seen and evaluated by Dr. Jorgensen She is cleared for discharge from the pulmonary and critical care standpoint We will see as needed I, the cosigning physician, performed a history & physical examination of the patient. Lungs sounds with crackles in the bilateral posterior bases. Maintaining good O2 saturations in the 90s on room air. I discussed the assessment and plan of care with my nurse practitioner, Shanae Hanson. I attest to the above note as dictated by her.
--- NOTE | 2020-08-29 11:41 | P.PN ---
Subjective Progress Note Date: 08/29/20 Principal diagnosis: Alcoholic liver disease, covid 19 positive This is day 6 gen [facility] floor , patient has known history of chronic alcohol use and abuse hypothyroidism and depression. Drinks approximately a pint of rum every day presented to the emergency room with scleral icterus and overall jaundice concerned because she was coughing feeling terrible shaking sweating with dyspnea patient had had testing for occult blood 19 on 08/23/2020 was admitted to the intensive care unit secondary to lactic acidosis and overall poor condition. Today's date 08/29/2020 Patient's awake alert vitals stable patient afebrile ambulating better strength improved, correcting potassium and magnesium, liver enzymes consistently improving Objective - Vital Signs Vital signs: Vital Signs Temp 99.0 F 08/29/20 05:00 Pulse 103 H 08/29/20 05:00 Resp 20 08/29/20 05:00 BP 109/75 08/29/20 05:00 Pulse Ox 95 08/29/20 05:00 Intake & Output 08/28/20 08/29/20 08/29/20 18:59 06:59 18:59 Intake Total 1400 600 Balance 1400 600 Intake: IV 1000 600 Magnesium Sulfate-D5w Pmx 100 1 gm In Dextrose/Water 1 100ml.bag @ 100 mls/hr IVPB Q1H KANDICE Rx#: [id number] Sodium Chloride 0.9% 1, 900 600 000 ml @ 75 mls/hr IV . [id number] KANDICE Rx#:[id number] Oral 400 Other: Voiding Method Bedside Commode Bedside Commode # Voids 1 3 1 # Bowel Movements 2 - Exam General: [Patient awake, alert and oriented times 3. Dysarthria, scleral icterus HEENT: [PERRL. EOMI. No pharyngeal erythema or exudate.] Neck: [No adenopathy.] Cardiac: [Heart regular in rate and rhythm. No S3. No S4. No clicks, rubs. No murmur.] Lungs: [Clear to auscultation bilaterally.] Abdomen: [No mass. No organomegaly. Bowel sounds presnt and normoactive in all 4 quadrants.] Extremes: [No edema no cyanosis no claudication normal pulses] : Normal female genitalia Musculoskeletal: [No joint erythema, edema or tenderness.] Skin: icteris Neurologic: [No lateralizing deficits. CN II - XII grossly intact.] Lymphatic: [No adenopathy.] - Labs CBC & Chem 7: 08/29/20 06:17 08/29/20 06:17 Labs: Abnormal Lab Results - Last 24 Hours (Table) 08/27/20 08/28/20 08/29/20 Range/Units 15:18 08:17 06:17 RBC (3.80-5.40) m/uL Hgb (11.4-16.0) gm/dL Hct (34.0-46.0) % MCV (80.0-100.0) fL MCH (25.0-35.0) pg RDW (11.5-15.5) % Metamyelocytes # (Man) (0) k/uL Macrocytosis Potassium 3.2 L (3.5-5.5) mmol/L BUN <5.0 L (9.0-27.0) mg/dL Creatinine 0.5 L (0.6-1.5) mg/dL Calcium 8.2 L (8.7-10.3) mg/dL Magnesium 1.2 L (1.5-2.4) mg/dL Ferritin 1524.5 H (10.0-291.0) ng/mL Total Bilirubin 7.5 H (0.2-1.2) mg/dL AST 156 H (13-35) U/L ALT 52 H (8-44) U/L Alkaline Phosphatase 195 H (41-126) U/L Ammonia (<30) umol/L Lactate Dehydrogenase 327 H (120-246) U/L Total Protein 5.2 L (6.2-8.2) g/dL Albumin 2.70 L (3.80-4.90) g/dL Albumin/Globulin Ratio 1.08 L (1.60-3.17) g/dL Coronavirus (PCR) Detected A (Not Detected) 08/29/20 08/29/20 Range/Units 06:17 06:17 RBC 2.77 L (3.80-5.40) m/uL Hgb 9.9 L (11.4-16.0) gm/dL Hct 30.8 L (34.0-46.0) % MCV 111.1 H (80.0-100.0) fL MCH 35.9 H (25.0-35.0) pg RDW 16.4 H (11.5-15.5) % Metamyelocytes # (Man) 0.07 H (0) k/uL Macrocytosis Marked A Potassium (3.5-5.5) mmol/L BUN (9.0-27.0) mg/dL Creatinine (0.6-1.5) mg/dL Calcium (8.7-10.3) mg/dL Magnesium (1.5-2.4) mg/dL Ferritin (10.0-291.0) ng/mL Total Bilirubin (0.2-1.2) mg/dL AST (13-35) U/L ALT (8-44) U/L Alkaline Phosphatase (41-126) U/L Ammonia 50 H (<30) umol/L Lactate Dehydrogenase (120-246) U/L Total Protein (6.2-8.2) g/dL Albumin (3.80-4.90) g/dL Albumin/Globulin Ratio (1.60-3.17) g/dL Coronavirus (PCR) (Not Detected) Assessment and Plan (1) Hypothyroid Current Visit: Yes Status: Acute Code(s): E03.9 - HYPOTHYROIDISM, UNSPECIFIED SNOMED Code(s): 12546163 (2) Alcohol withdrawal syndrome Current Visit: Yes Status: Acute Code(s): F10.239 - ALCOHOL DEPENDENCE WITH WITHDRAWAL, UNSPECIFIED SNOMED Code(s): 609325754 (3) COVID-19 Current Visit: Yes Status: Acute Code(s): U07.1 - COVID-19 SNOMED Code(s): 405432755 (4) Hypokalemia Current Visit: Yes Status: Acute Code(s): E87.6 - HYPOKALEMIA SNOMED Code(s): 60466195 (5) Hypomagnesemia Current Visit: Yes Status: Acute Code(s): E83.42 - HYPOMAGNESEMIA SNOMED Code(s): 076479299 (6) Lactic acidosis Current Visit: Yes Status: Acute Code(s): E87.2 - ACIDOSIS SNOMED Code(s): 37128873 Plan: ICU addmit Positive covid by pcr Recently transferred to [facility] and per [facility] iv resusitation iv antibitics iv steroids CIWA protocol alcohol withdrawal Id consultation Critical CARE consultation Time with Patient: Greater than 30
[2020-08-29 12:07] LABS: Ferritin 1684.9 ng/mL (10.0-291.0)
[2020-08-29 12:20] LABS: C Reactive Protein 1.5 mg/dL (0.0-0.8)
[2020-08-29] MEDS: MAGNESIUM SULFATE-D5W PMX 1 GM in DEXTROSE/WATER 1 100ML.BAG IVPB SCH ×3 (13:37→17:47)
[2020-08-29] MEDS: POTASSIUM CHLORIDE ER 20 MEQ TAB.ER PO SCH ×2 (13:38→14:51)
--- NOTE | 2020-08-29 14:09 | XR ---
EXAMINATION TYPE: XR chest 1V DATE OF EXAM: 08/27/2020 COMPARISON: Prior chest x-ray 08/24/2020 HISTORY: Covid pneumonitis TECHNIQUE: Single frontal view of the chest is obtained. FINDINGS: There is blunting of the right and left costophrenic angle, patchy basilar densities prese nt bilaterally. Cardiac mediastinal silhouette is within normal limits. No evident pneumothorax. IMPRESSION: Patchy basilar atelectatic changes, difficult to exclude small effusion, pneumonia, foll ow-up as indicated, exam submitted for interpretation 08/29/2020
--- NOTE | 2020-08-29 15:04 | MR ---
MR brain without contrast HISTORY: Dysarthria Multiplanar multisequence imaging through the brain Comparison CT brain 08/24/2020, exam submitted for interpretation 08/29/2020. Fast brain protocol uti lized. There is no restricted diffusion. Cortical atrophy is present. There is no hemorrhage or hydrocephalu s. Extensive periventricular, subcortical, juxtacortical and pericallosal confluent and scattered hyp erintensities present on inversion recovery T2-weighted sequences. There are normal vascular flow voi ds. Orbits show symmetric appearance. Corpus callosum, pituitary, cervical medullary junction, cerebe llopontine angles are normal. IMPRESSION: Nonspecific white matter demyelination, correlate for multiple sclerosis, chronic small v essel ischemic changes. Age-related atrophy.
[2020-08-29] MEDS: SODIUM CHLORIDE 0.9% 1,000 ML IV SCH (21:41)
[2020-08-30] MEDS: LEVOTHYROXINE 100 MCG TAB PO SCH (06:05)
[2020-08-30 06:59] LABS: Anisocytosis Slight; HCT 30.4 % (34.0-46.0); HGB 9.8 gm/dL (11.4-16.0); MCH 35.6 pg (25.0-35.0); MCHC 32.3 g/dL (31.0-37.0); MCV 110.2 fL (80.0-100.0); Macrocytosis Marked; Mean Platelet Volume 9.1; Platelet Count 291 k/uL (150-450); RBC 2.76 m/uL (3.80-5.40); RDW 16.2 % (11.5-15.5)
[2020-08-30] MEDS: ENOXAPARIN 30 MG/0.3 ML SYRINGE SQ SCH (07:15)
[2020-08-30] MEDS: THIAMINE 100 MG TAB PO SCH (07:16)
[2020-08-30] MEDS: CYANOCOBALAMIN 500 MCG TAB PO SCH (07:16)
[2020-08-30] MEDS: RIFAXIMIN 550 MG TABLET PO SCH (07:16)
[2020-08-30] MEDS: PANTOPRAZOLE 40 MG/10 ML VIAL IVP SCH (07:16)
[2020-08-30] MEDS: LACTULOSE 20 GM/30 ML CUP PO SCH (07:17)
[2020-08-30] MEDS: FOLIC ACID 1 MG TAB PO SCH (07:17)
[2020-08-30 07:25] LABS: Band Neutrophils % 1 %; Basophils # (M) 0.08 k/uL (0-0.2); Eosinophils # (M) 0.08 k/uL (0-0.7); Lymphocytes # (M) 2.28 k/uL (1.0-4.8); Metamyelocytes # (M) 0.15 k/uL (0); Metamyelocytes % 2 %; Monocytes # (M) 0.68 k/uL (0-1.0); Myelocytes # (M) 0.08 k/uL (0); Myelocytes % 1 %; Neutrophils % (M) 59 %; Nucleated Red Blood Cells 2 /100 WBC (0-0); Total Cells Counted 200; WBC 7.6 k/uL (3.8-10.6)
[2020-08-30 07:26] LABS: Polychromasia Present
[2020-08-30 10:03] LABS: ALT 52 U/L (8-44); AST 167 U/L (13-35); Albumin/Globulin Ratio 1.16 (1.60-3.17); Alkaline Phosphatase 191 U/L (41-126); Blood Urea Nitrogen <5.0 mg/dL (9.0-27.0); C Reactive Protein 1.3 mg/dL (0.0-0.8); Calcium 8.3 mg/dL (8.7-10.3); Carbon Dioxide 27.5 mmol/L (21.6-31.8); Chloride 102 mmol/L (96-109); Creatine Kinase 77 U/L (26-186); Globulin 2.5 g/dL (1.6-3.3); Glucose 81 mg/dL (70-110); LDH 344 U/L (120-246); Magnesium 1.5 mg/dL (1.5-2.4); Non-African American GFR(CKD) 111.3 (60.0-200.0); Potassium 3.5 mmol/L (3.5-5.5); Sodium 137 mmol/L (135-145); Total Bilirubin 7.8 mg/dL (0.3-1.2); Total Protein 5.4 g/dL (6.2-8.2)
[2020-08-30] MEDS: SODIUM CHLORIDE 0.9% 1,000 ML IV SCH (10:49)
[2020-08-30] MEDS ORDERED: Magnesium Replacement Protocol 1 EACH MISC MISCELLANE PRN (11:01)
[2020-08-30] MEDS ORDERED: Potassium Replacement Protocol 1 EACH MISC MISCELLANE PRN (11:03)
[2020-08-30] MEDS: POTASSIUM CHLORIDE ER 20 MEQ TAB.ER PO SCH ×2 (11:32→12:33)
[2020-08-30] MEDS: MAGNESIUM SULFATE-D5W PMX 1 GM in DEXTROSE/WATER 1 100ML.BAG IVPB SCH ×2 (11:33→12:33)
--- NOTE | 2020-08-30 12:10 | P.PN ---
Subjective Progress Note Date: 08/30/20 Principal diagnosis: Alcoholic liver disease The patient is seen today 08/26/2020 in follow-up in the intensive care unit. She has a history of chronic alcohol use and chronic alcohol abuse, hypothyroidism, depression. She drinks approximately a pint of rum every day. She had presented to the emergency room on 08/24/2020 with complaints of sweating, shaking, shortness of breath and not feeling well. She did test positive for CoVID 19 on 08/23/2020. She was admitted to the intensive care unit for severe alcoholic liver disease and probable alcoholic cirrhosis. She was found to have a profound electrolyte disturbance including hypomagnesemia, hypokalemia, hyponatremia. Also hyperbilirubinemia with jaundice. Presently, she is more awake and alert. She is sitting up in bed. She is tolerating liquids. Computed tomography scan of the abdomen revealed significant fatty replacement of the liver. There is some infiltrate/atelectasis at the lung bases. Computed tomography scan of the brain revealed no acute intracranial abnormality. Carotid Dopplers revealed no hemodynamic significant stenosis bilaterally. She is maintaining O2 saturations in the 90s on room air. She's afebrile. Urine culture showing gram-negative bacilli. White count 6.2. Hemoglobin 10.4. Platelet count 130,000. Sodium 128. Potassium 2.7. Creatinine 0.48. AST 230. ALT 65. Ammonia level LIII. LDH 888. C-reactive protein 29.3. Albumin 2.8. She is currently on ceftriaxone, folic acid, Lovenox, thiamine. 0.9 normal saline at 75 ML's per hour. Protonix. She remains on the [facility] protocol. The patient is seen today 08/29/2020 in follow-up on the regular medical floor. She is currently awake and alert in no acute distress. Maintaining O2 saturations in the mid 90s on room air. She's been afebrile. Hemodynamically stable. Urine culture was positive for E. coli. White count 7.3. Hemoglobin 9.9. MCV 111. Sodium 136. Potassium 3.2. Creatinine 0.5. AST 156. ALT 52. LDH 327. She remains on ceftriaxone. Lovenox for DVT prophylaxis. [facility] protocol. The patient is seen today 08/30/2020 in follow-up on the regular medical floor. She is awake and alert in no acute distress. She is quite anxious to go home. She is maintaining good O2 saturations in the 90s on room air. She's been afebrile. White count 7.6. Hemoglobin 9.8. MCV 110. Sodium 137. Potassium 3.5. Creatinine 0.5. Ferritin 1182. LDH 344. C-reactive protein 1.3. Objective - Vital Signs Vital signs: Vital Signs Temp 99.2 F 08/30/20 05:21 Pulse 90 08/30/20 05:21 Resp 16 08/30/20 05:21 BP 112/77 08/30/20 05:21 Pulse Ox 94 L 08/30/20 05:21 Intake & Output 08/29/20 08/30/20 08/30/20 18:59 06:59 18:59 Output Total 0 Balance 0 Output: Urine 0 Other: Voiding Method Bedside Commode Bedside Commode # Voids 4 3 1 # Bowel Movements 1 1 1 - Exam GENERAL EXAM: Alert, jaundice, pleasant 50-year-old female, on room air, comfortable in no apparent distress. HEAD: Normocephalic. EYES: Normal reaction of pupils, equal size. NOSE: Clear with pink turbinates. THROAT: No erythema or exudates. NECK: No masses, no JVD. CHEST: No chest wall deformity. LUNGS: Equal air entry with crackles in the bilateral posterior bases CVS: S1 and S2 normal with no audible murmur, regular rhythm. ABDOMEN: Positive hepatosplenomegaly, normal bowel sounds, no guarding or rigidity. SPINE: No scoliosis or deformity SKIN: No rashes CENTRAL NERVOUS SYSTEM: No focal deficits, tone is normal in all 4 extremities. EXTREMITIES: There is no peripheral edema. No clubbing, no cyanosis. Peripheral pulses are intact. - Labs CBC & Chem 7: 08/30/20 05:43 08/30/20 05:43 Labs: Abnormal Lab Results - Last 24 Hours (Table) 08/29/20 08/30/20 08/30/20 Range/Units 06:17 05:43 05:43 RBC 2.76 L (3.80-5.40) m/uL Hgb 9.8 L (11.4-16.0) gm/dL Hct 30.4 L (34.0-46.0) % MCV 110.2 H (80.0-100.0) fL MCH 35.6 H (25.0-35.0) pg RDW 16.2 H (11.5-15.5) % Metamyelocytes # (Man) 0.15 H (0) k/uL Myelocytes # (Manual) 0.08 H (0) k/uL Nucleated RBCs 2 H (0-0) /100 WBC Macrocytosis Marked A BUN <5.0 L (9.0-27.0) mg/dL Creatinine 0.5 L (0.6-1.5) mg/dL Calcium 8.3 L (8.7-10.3) mg/dL Ferritin 1684.9 H 1182.0 H (10.0-291.0) ng/mL Total Bilirubin 7.8 H (0.3-1.2) mg/dL AST 167 H (13-35) U/L ALT 52 H (8-44) U/L Alkaline Phosphatase 191 H (41-126) U/L Ammonia (<30) umol/L Lactate Dehydrogenase 344 H (120-246) U/L C-Reactive Protein 1.5 H 1.3 H (0.0-0.8) mg/dL Total Protein 5.4 L (6.2-8.2) g/dL Albumin 2.90 L (3.80-4.90) g/dL Albumin/Globulin Ratio 1.16 L (1.60-3.17) g/dL 08/30/20 Range/Units 05:43 RBC (3.80-5.40) m/uL Hgb (11.4-16.0) gm/dL Hct (34.0-46.0) % MCV (80.0-100.0) fL MCH (25.0-35.0) pg RDW (11.5-15.5) % Metamyelocytes # (Man) (0) k/uL Myelocytes # (Manual) (0) k/uL Nucleated RBCs (0-0) /100 WBC Macrocytosis BUN (9.0-27.0) mg/dL Creatinine (0.6-1.5) mg/dL Calcium (8.7-10.3) mg/dL Ferritin (10.0-291.0) ng/mL Total Bilirubin (0.3-1.2) mg/dL AST (13-35) U/L ALT (8-44) U/L Alkaline Phosphatase (41-126) U/L Ammonia 34 H (<30) umol/L Lactate Dehydrogenase (120-246) U/L C-Reactive Protein (0.0-0.8) mg/dL Total Protein (6.2-8.2) g/dL Albumin (3.80-4.90) g/dL Albumin/Globulin Ratio (1.60-3.17) g/dL Assessment and Plan Assessment: 1 Altered mental status secondary to profound electrolyte disturbance secondary to severe alcoholic liver disease and probable alcoholic cirrhosis, recovered 2 CoVID 19 infection 3 Chronic alcohol abuse 4 Hyperbilirubinemia with jaundice 5 Hypothyroidism 6 Chronic depression 7 Chronic anemia 8 Thrombocytopenia 9 Hyperammonemia 10 Urinary tract infection secondary to E. coli, currently on ceftriaxone Plan: The patient was seen and evaluated by Dr. Jorgensen She is cleared for discharge from the pulmonary and critical care standpoint Follow-up closely with her PCP I, the cosigning physician, performed a history & physical examination of the patient. Lungs sounds with crackles in the bilateral posterior bases. Maintaining good O2 saturations in the 90s on room air. I discussed the assessment and plan of care with my nurse practitioner, Shanae Hanson. I attest to the above note as dictated by her.
[2020-08-30 12:26] VITALS: BP 114/81; PULSE 60; RESP 15; TEMP 98.5
--- NOTE | 2020-08-30 14:21 | P.DS ---
Providers Date of admission: 08/24/20 19:05 Expected date of discharge: 08/30/20 Attending physician: Matt Ch Consults: 08/24/20 19:00 Consult Physician Stat Consulting Provider: Gerardo Jorgensen Consult Reason/Comments: Lactic acidosis, liver failure, alcohol withdrawal, positive Covid Do you want consulting provider notified?: Already Contacted Consult Physician Urgent Consulting Provider: Shasta Moise Consult Reason/Comments: Liver failure, lactic acidosis, alcohol withdrawal Do you want consulting provider notified?: Yes 08/25/20 01:29 Consult Physician Routine Consulting Provider: Mekhi Jorgensen Consult Reason/Comments: neuro changes Do you want consulting provider notified?: Yes, Notify in am Primary care physician: Matt Ch - Discharge Diagnosis(es) (1) Liver cirrhosis Current Visit: Yes Status: Acute (2) Alcohol withdrawal syndrome Current Visit: Yes Status: Acute (3) Altered mental status Current Visit: Yes Status: Acute (4) COVID-19 Current Visit: Yes Status: Acute (5) Hyperammonemia Current Visit: Yes Status: Acute (6) Hypokalemia Current Visit: Yes Status: Acute (7) Hypomagnesemia Current Visit: Yes Status: Acute (8) Hypothyroid Current Visit: Yes Status: Acute Hospital Course: The patient has a history of chronic alcohol use and chronic alcohol abuse, hypothyroidism, depression. She drinks approximately a pint of rum every day. She had presented to the emergency room on 08/24/2020 with complaints of sweating, shaking, shortness of breath and not feeling well. She did test positive for CoVID 19 on 08/23/2020. She was admitted to the intensive care unit for severe alcoholic liver disease and probable alcoholic cirrhosis. She was found to have a profound electrolyte disturbance including hypomagnesemia, hypokalemia, hyponatremia. Also hyperbilirubinemia with jaundice. Computed tomography scan of the abdomen revealed significant fatty replacement of the liver. There is some infiltrate/atelectasis at the lung bases. Computed tomography scan of the brain revealed no acute intracranial abnormality. Carotid Dopplers revealed no hemodynamic significant stenosis bilaterally. She is maintaining O2 saturations in the 90s on room air. She's afebrile. Urine culture showing gram-negative bacilli. White count 6.2. Hemoglobin 10.4. Platelet count 130,000. Sodium 128. Potassium 2.7. Creatinine 0.48. AST 230. ALT 65. Ammonia level LIII. LDH 888. C-reactive protein 29.3. Albumin 2.8. She is currently on ceftriaxone, folic acid, Lovenox, thiamine. 0.9 normal saline at 75 ML's per hour. Protonix. She remains on the [facility] protocol. She was seen by Critical care/pulmonolgy and GI. SHe was palcedo Lactulose and Xifaxan .She improved mentally and at D?C e;ctrolytes were corretcted and Ammonia was 34. MRI brain showed no acute abnomrality. She was requesting D/C, and was cleared by consultants foe D/C. Her does drink, but is willing to do whatever it takes to get her well, Per patient She is aware of the need for close followup and will see PCP and GI this week. Patient Condition at Discharge: Fair Plan - Discharge Summary Discharge Rx Participant: No New Discharge Prescriptions: New Lactulose [Cephulac] 30 gm PO TID 30 Days #4050 ml Folic Acid 1 mg PO DAILY tab Thiamine [Vitamin B-1] 100 mg PO BID-W/MEALS tab Cyanocobalamin [Vitamin B-12] 1,000 mcg PO DAILY tab Rifaximin [Xifaxan] 550 mg PO BID #14 tablet Continue Levothyroxine Sodium [Synthroid] 100 mg PO DAILY Baclofen [Lioresal] 10 mg PO BID PRN PRN Reason: BACK PAIN Omeprazole [PriLOSEC] 40 mg PO DAILY methocarbamoL [Robaxin] 750 mg PO TID PRN PRN Reason: BACK PAIN Discharge Medication List Levothyroxine Sodium [Synthroid] 100 mg PO DAILY 12/24/14 [History] Baclofen [Lioresal] 10 mg PO BID PRN 08/24/20 [History] Omeprazole [PriLOSEC] 40 mg PO DAILY 08/24/20 [History] methocarbamoL [Robaxin] 750 mg PO TID PRN 08/24/20 [History] Cyanocobalamin [Vitamin B-12] 1,000 mcg PO DAILY tab 08/30/20 [Rx] Folic Acid 1 mg PO DAILY tab 08/30/20 [Rx] Lactulose [Cephulac] 30 gm PO TID 30 Days #4050 ml 08/30/20 [Rx] Rifaximin [Xifaxan] 550 mg PO BID #14 tablet 08/30/20 [Rx] Thiamine [Vitamin B-1] 100 mg PO BID-W/MEALS tab 08/30/20 [Rx] Follow up Appointment(s)/Referral(s): Matt Ch Jr, DO [Primary Care Provider] - 1-2 days (Please call office to schedule follow-up apptointment, office is currently closed) Shasta Moise MD [STAFF PHYSICIAN] - 1 Week (please call office to schedule this follow-up. office is currently closed) Patient Instructions/Handouts: Alcohol Withdrawal (DC) Discharge/Stand Alone Forms: Who Do I Call?, AA Meetings, Community Resources, Help In The Home, Outpatient Counseling
--- NOTE | 2020-08-30 19:17 | PN ---
PROGRESS NOTE DATE OF SERVICE: August 30, 2020 Patient is a 50-year-old pleasant white female admitted to hospital with acute alcoholic hepatitis and alcoholic cirrhosis of the liver. She is doing better today. Denies any abdominal pain. She complains of generalized weakness but no fever, chills, night sweats. No nausea, vomiting. PHYSICAL EXAMINATION: Vital signs are stable. Blood pressure is 114/81, pulse rate 60, temperature 98.5. HEENT examination unremarkable. Conjunctivae pink. Sclerae anicteric. Oral cavity no lesions. Neck: No JVD or lymph node enlargement. CHEST was clear to auscultation. HEART: Regular rate and rhythm. ABDOMEN: Soft. Bowel sounds are positive. No organomegaly. Extremities: No pedal edema. NEUROLOGIC: Alert and oriented x3. No focal deficits. LABS: WBC 7.6, hemoglobin 9.8, platelets 291. Bilirubin is 7.8, AST 167, ALT 52. IMPRESSION: 1. Acute alcoholic hepatitis superimposed on alcoholic cirrhosis of the liver with gradually improving LFTs. Bilirubin today is 7.8 g/dL. 2. Hepatic encephalopathy resolving. Ammonia level is 34 today. Remains on Xifaxan and lactulose. 3. History of heavy alcohol abuse. 4. Anxiety and depression. RECOMMENDATIONS: 1. Continue to advance diet as tolerated. 2. Increase ambulation. 3. Recommended physical therapy. 4. Abstinence from alcohol. 5. The patient can be discharged home today with close outpatient followup in a week in the office. Thank you for this consultation. MMHAYDEE / MICHAELAN: [phone] /
== END 2020-08-30 16:13 | disposition home or self-care (01) | DRG 432 ==
LOC: EC 16:15 → 2SICU 19:05 → 6NMEDSUR 08-28 11:22
PROVIDERS: ADMIT Family Medicine; ATTEND Family Medicine
DX: K70.30 Alcoholic cirrhosis of liver without ascites (principal); U07.1 COVID-19; G92 Toxic encephalopathy; F10.239 Alcohol dependence with withdrawal, unspecified; E87.2 Acidosis; E87.1 Hypo-osmolality and hyponatremia; N39.0 Urinary tract infection, site not specified; D68.4 Acquired coagulation factor deficiency; J98.11 Atelectasis; K70.40 Alcoholic hepatic failure without coma; K70.10 Alcoholic hepatitis without ascites; E07.9 Disorder of thyroid, unspecified; F41.9 Anxiety disorder, unspecified; F32.9 Major depressive disorder, single episode, unspecified; E87.6 Hypokalemia; E83.42 Hypomagnesemia; E03.9 Hypothyroidism, unspecified; E86.0 Dehydration; D53.9 Nutritional anemia, unspecified; D69.59 Other secondary thrombocytopenia; I10 Essential (primary) hypertension; B96.20 Unspecified Escherichia coli [E. coli] as the cause of diseases classified elsewhere; G31.2 Degeneration of nervous system due to alcohol; Y90.0 Blood alcohol level of less than 20 mg/100 ml; D75.89 Other specified diseases of blood and blood-forming organs; Z90.710 Acquired absence of both cervix and uterus; Z87.891 Personal history of nicotine dependence; Z86.718 Personal history of other venous thrombosis and embolism
CPT/HCPCS: 36415; 51702; 70450; 70551; 71045; 74177; 80053; 80061; 80306; 80320; 81001; 82140; 82150; 82550; 82607; 82728; 82747; 82977; 83605; 83615; 83690; 83721; 83735; 84132; 84443; 85025; 85379; 85610; 85730; 86140; 87077; 87086; 87186; 87635; 93880; 96361; 96374; 96376; 99291

== ENCOUNTER 2021-02-25 22:27 | Inpatient (IN) | payer BC ==
[2021-02-25] MEDS ORDERED: SODIUM CHLORIDE 0.9% 500 ML 500 ML IV STA (22:40)
[2021-02-25] MEDS ORDERED: SODIUM CHLORIDE 0.9% 1,000 ML IV STA ×2 (22:40)
[2021-02-25] MEDS ORDERED: LORazepam 2 MG/ML INJ IV STA (22:40)
[2021-02-25] MEDS ORDERED: MAGNESIUM SULFATE-D5W PMX 1 GM in DEXTROSE/WATER 1 100ML.BAG IVPB STA (22:40)
[2021-02-25] MEDS ORDERED: DIAZEPAM 5 MG/ML 2 ML INJ IVP STA (22:40)
[2021-02-25] MEDS ORDERED: levETIRAcetam IV 1,000 MG in SALINE 1 100ML.BAG IVPB ONE (23:00)
[2021-02-25] MEDS ORDERED: LORazepam 2 MG/ML INJ IV PRN (23:01)
[2021-02-25] MEDS ORDERED: THIAMINE 100 MG/ML 2 ML VIAL IVP STA (23:01)
--- NOTE | 2021-02-25 23:01 | ED ---
Seizure HPI - General Chief Complaint: Seizure Stated Complaint: Seizure Time Seen by Provider: 02/25/21 22:36 Source: patient, EMS, RN notes reviewed, old records reviewed Mode of arrival: EMS Limitations: no limitations - History of Present Illness Initial Comments: This is a 50-year-old female DF for evaluation. Patient has history of chronic alcoholism with prior admission a year ago. Patient presents today for persistent nausea vomiting weakness not feeling well and then tonight did have a seizure. Patient has not had prior seizure. has at bedside he states he isgetting increasingly more yellow MD Complaint: seizure, possible seizure -: days(s) Description of Episode: loss of consciousness Seizure History: known seizure disorder Place: home Possible Precipitating Event: none Associated Symptoms: denies other symptoms Treatments Prior to Arrival: none - Related Data Home Medications Medication Instructions Recorded Confirmed Levothyroxine Sodium [Synthroid] 100 mg PO DAILY 12/24/14 08/24/20 Baclofen [Lioresal] 10 mg PO BID PRN 08/24/20 08/24/20 Omeprazole [PriLOSEC] 40 mg PO DAILY 08/24/20 08/24/20 methocarbamoL [Robaxin] 750 mg PO TID PRN 08/24/20 08/24/20 Previous Rx's Medication Instructions Recorded Cyanocobalamin [Vitamin B-12] 1,000 mcg PO DAILY tab 08/30/20 Folic Acid 1 mg PO DAILY tab 08/30/20 Lactulose [Cephulac] 30 gm PO TID 30 Days #4050 ml 08/30/20 Rifaximin [Xifaxan] 550 mg PO BID #14 tablet 08/30/20 Thiamine [Vitamin B-1] 100 mg PO BID-W/MEALS tab 08/30/20 Allergies Allergy/AdvReac Type Severity Reaction Status Date / Time No Known Allergies Allergy Verified 08/24/20 19:02 Review of Systems ROS Statement: Those systems with pertinent positive or pertinent negative responses have been documented in the HPI. ROS Other: All systems not noted in ROS Statement are negative. Past Medical History Past Medical History: Hypertension, Thyroid Disorder History of Any Multi-Drug Resistant Organisms: None Reported Past Surgical History: Hysterectomy Past Anesthesia/Blood Transfusion Reactions: No Reported Reaction Past Psychological History: Depression Smoking Status: Former smoker Past Alcohol Use History: Abuse Past Drug Use History: None Reported General Exam - General Exam Comments Initial Comments: Patient is significantly jaundiced Limitations: altered mental status, physical limitation General appearance: alert, anxious, in distress Head exam: Present: atraumatic, normocephalic, normal inspection Eye exam: Present: normal appearance, PERRL, EOMI. Absent: scleral icterus, conjunctival injection, periorbital swelling ENT exam: Present: normal exam, mucous membranes moist Neck exam: Present: normal inspection. Absent: tenderness, meningismus, lymphadenopathy Respiratory exam: Present: normal lung sounds bilaterally. Absent: respiratory distress, wheezes, rales, rhonchi, stridor Cardiovascular Exam: Present: regular rate, normal rhythm, normal heart sounds. Absent: systolic murmur, diastolic murmur, rubs, gallop, clicks GI/Abdominal exam: Present: soft, normal bowel sounds. Absent: distended, tenderness, guarding, rebound, rigid Extremities exam: Present: normal inspection, full ROM, normal capillary refill. Absent: tenderness, pedal edema, joint swelling, calf tenderness Back exam: Present: normal inspection Neurological exam: Present: alert, oriented X3, CN II-XII intact Psychiatric exam: Present: normal affect, normal mood Skin exam: Present: warm, dry, intact, normal color. Absent: rash Course Vital Signs 02/25/21 02/26/21 02/26/21 22:31 00:55 02:12 Temperature 98.1 F 98.1 F Pulse Rate 70 103 H 99 Respiratory 16 18 18 Rate Blood Pressure 147/91 104/77 130/89 O2 Sat by Pulse 97 100 97 Oximetry - Reevaluation(s) Reevaluation #1: 02/26/21 02:45 Medical record is reviewed Reevaluation #2: 02/26/21 02:45 Patient is somnolent no recurrent seizure here in the ER tremor is reduced - Consultations Consultation #1: Spoke with Dr. Lee who agrees to admit the patient Medical Decision Making - Medical Decision Making 50 female DF for evaluation patient will be admitted for seizure activity DTs and severe alcohol was an alcoholic cirrhosis. - Lab Data Result diagrams: 02/25/21 22:46 02/25/21 22:46 Lab Results 02/25/21 02/25/21 02/25/21 Range/Units 22:46 22:46 22:46 WBC 10.2 (3.8-10.6) k/uL RBC 2.89 L (3.80-5.40) m/uL Hgb 10.8 L (11.4-16.0) gm/dL Hct 32.6 L (34.0-46.0) % MCV 112.9 H (80.0-100.0) fL MCH 37.3 H (25.0-35.0) pg MCHC 33.1 (31.0-37.0) g/dL RDW 14.3 (11.5-15.5) % Plt Count 116 L (150-450) k/uL MPV 12.3 Macrocytosis Marked A PT 13.2 H (9.0-12.0) sec INR 1.3 H (<1.2) Sodium 132 L (137-145) mmol/L Potassium 3.1 L (3.5-5.1) mmol/L Chloride 88 L (98-107) mmol/L Carbon Dioxide 13 L (22-30) mmol/L Anion Gap 31 mmol/L BUN 3 L (7-17) mg/dL Creatinine 0.79 (0.52-1.04) mg/dL Est GFR (CKD-EPI)AfAm >90 (>60 ml/min/1.73 sqM) Est GFR (CKD-EPI)NonAf 87 (>60 ml/min/1.73 sqM) Glucose 141 H (74-99) mg/dL Calcium 10.2 (8.4-10.2) mg/dL Phosphorus 2.5 (2.5-4.5) mg/dL Magnesium 1.4 L (1.6-2.3) mg/dL Total Bilirubin 10.3 H (0.2-1.3) mg/dL AST 467 H (14-36) U/L ALT 106 H (4-34) U/L Alkaline Phosphatase 279 H (38-126) U/L Total Protein 8.0 (6.3-8.2) g/dL Albumin 4.5 (3.5-5.0) g/dL Lipase 125 (23-300) U/L Salicylates <1.0 mg/dL Acetaminophen <10.0 ug/mL Serum Alcohol <10 mg/dL Critical Care Time Critical Care Time: Yes Total Critical Care Time: 31 Disposition Clinical Impression: Liver cirrhosis, Hypomagnesemia, Alcohol withdrawal syndrome, Altered mental status, New onset seizure Disposition: ADMITTED IP TO THIS HOSP Condition: Serious Is patient prescribed a controlled substance at d/c from ED?: No
[2021-02-25 23:19] LABS: INR 1.3 (<1.2); Prothrombin Time 13.2 sec (9.0-12.0)
[2021-02-25 23:29] LABS: Acetaminophen <10.0 ug/mL; African American GFR (CKD) >90 (>60 ml/min/1.73 sqM); Albumin 4.5 g/dL (3.5-5.0); Alcohol <10 mg/dL; Alkaline Phosphatase 279 U/L (38-126); Anion Gap 31 mmol/L; Blood Urea Nitrogen 3 mg/dL (7-17); Calcium 10.2 mg/dL (8.4-10.2); Carbon Dioxide 13 mmol/L (22-30); Chloride 88 mmol/L (98-107); Glucose 141 mg/dL (74-99); Lipase 125 U/L (23-300); Magnesium 1.4 mg/dL (1.6-2.3); Non-African American GFR(CKD) 87 (>60 ml/min/1.73 sqM); Phosphorus 2.5 mg/dL (2.5-4.5); Salicylate <1.0 mg/dL; Sodium 132 mmol/L (137-145); Total Bilirubin 10.3 mg/dL (0.2-1.3)
[2021-02-25 23:34] LABS: AST 467 U/L (14-36)
[2021-02-25 23:35] LABS: ALT 106 U/L (4-34)
[2021-02-25 23:45] LABS: Potassium 3.1 mmol/L (3.5-5.1)
[2021-02-26 00:17] LABS: Basophils % (A) 0 %; Eosinophils % (A) 0 %; HCT 32.6 % (34.0-46.0); HGB 10.8 gm/dL (11.4-16.0); Lymphocytes % (A) 10 %; MCH 37.3 pg (25.0-35.0); MCHC 33.1 g/dL (31.0-37.0); MCV 112.9 fL (80.0-100.0); Macrocytosis Marked; Mean Platelet Volume 12.3; Monocytes # (A) 0.8 k/uL (0-1.0); Monocytes % (A) 8 %; Neutrophils # (A) 8.1 k/uL (1.3-7.7); Neutrophils % (A) 80 %; Platelet Count 116 k/uL (150-450); RBC 2.89 m/uL (3.80-5.40); RDW 14.3 % (11.5-15.5); WBC 10.2 k/uL (3.8-10.6)
[2021-02-26] MEDS: DEXTROSE 5%-0.45% NACL 1,000 ML IV SCH ×2 (00:44→08:31)
[2021-02-26] MEDS ORDERED: NALOXONE 0.4 MG/ML 1 ML VIAL IV PRN (00:59)
[2021-02-26] MEDS ORDERED: MORPHINE SULFATE 4 MG/ML SYRINGE IV PRN (00:59)
[2021-02-26] MEDS: POTASSIUM CHLORIDE 10 MEQ in WATER FOR INJECTION 1 100ML.BAG IVPB SCH ×6 (01:37→08:31)
[2021-02-26] MEDS: MAGNESIUM SULFATE-D5W PMX 1 GM in DEXTROSE/WATER 1 100ML.BAG IVPB SCH ×2 (01:37→03:01)
[2021-02-26] MEDS: LORazepam 2 MG/ML INJ IV PRN ×4 (02:25→22:57)
[2021-02-26 03:31] LABS: Large Platelets Present
[2021-02-26 03:33] LABS: Anisocytosis (M) Present; Poikilocytosis (M) Present; Polychromasia Present
[2021-02-26 03:53] LABS: Amphetamine Screen,Urine Not Detected (NotDetected); Barbiturate Screen,Urine Not Detected (NotDetected); Benzodiazepines Screen,Urine Not Detected (NotDetected); Cocaine Screen,Urine Not Detected (NotDetected); Methadone Screen, Urine Not Detected (NotDetected); Opiate Screen,Urine Not Detected (NotDetected); Oxycodone Screen, Urine Not Detected (NotDetected); Phencyclidine Screen,Urine Not Detected (NotDetected); Tricyclic Antidepressant,Urine Not Detected (NotDetected); Urn Cannabinoid Scrn Not Detected (NotDetected)
[2021-02-26] MEDS: ACETAMINOPHEN TAB 325 MG TAB PO PRN (04:44)
[2021-02-26] MEDS: THIAMINE 100 MG TAB PO SCH ×2 (06:19→17:28)
[2021-02-26 08:04] LABS: Lactic Acid, Venous 3.9 mmol/L (0.7-2.0)
[2021-02-26] MEDS: PANTOPRAZOLE 40 MG/10 ML VIAL IV SCH (08:31)
[2021-02-26] MEDS ORDERED: FAMOTIDINE 20 MG/2 ML VIAL IV SCH (09:00)
[2021-02-26] MEDS ORDERED: MULTIVITAMINS, THERA 1 EACH TAB PO SCH (09:00)
[2021-02-26] MEDS ORDERED: SODIUM CHLORIDE 0.9% 1,000 ML IV SCH (09:00)
[2021-02-26 09:27] LABS: Basophils % (A) 1 %; Eosinophils # (A) 0.1 k/uL (0-0.7); Eosinophils % (A) 2 %; HCT 26.5 % (34.0-46.0); HGB 9.6 gm/dL (11.4-16.0); Lymphocytes # (A) 1.1 k/uL (1.0-4.8); Lymphocytes % (A) 21 %; MCH 39.3 pg (25.0-35.0); MCHC 36.1 g/dL (31.0-37.0); Macrocytosis Marked; Mean Platelet Volume 9.6; Monocytes # (A) 0.3 k/uL (0-1.0); Monocytes % (A) 5 %; Neutrophils # (A) 3.9 k/uL (1.3-7.7); Neutrophils % (A) 71 %; RBC 2.43 m/uL (3.80-5.40); RDW 13.6 % (11.5-15.5); WBC 5.6 k/uL (3.8-10.6)
[2021-02-26] MEDS ORDERED: LACTULOSE 20 GM/30 ML CUP PO ONE (09:30)
[2021-02-26 09:38] LABS: INR 1.2 (<1.2); Partial Thromboplastin Time 28.4 sec (22.0-30.0); Prothrombin Time 12.6 sec (9.0-12.0)
[2021-02-26 09:59] LABS: ALT 84 U/L (4-34); AST 385 U/L (14-36); African American GFR (CKD) >90 (>60 ml/min/1.73 sqM); Albumin 3.1 g/dL (3.5-5.0); Alkaline Phosphatase 217 U/L (38-126); Anion Gap 10 mmol/L; Blood Urea Nitrogen 2 mg/dL (7-17); Calcium 8.9 mg/dL (8.4-10.2); Carbon Dioxide 26 mmol/L (22-30); Chloride 97 mmol/L (98-107); Glucose 102 mg/dL (74-99); Non-African American GFR(CKD) >90 (>60 ml/min/1.73 sqM); Potassium 2.8 mmol/L (3.5-5.1); Sodium 133 mmol/L (137-145); Total Bilirubin 9.1 mg/dL (0.2-1.3); Total Protein 6.4 g/dL (6.3-8.2)
[2021-02-26] MEDS ORDERED: Potassium Replacement Protocol 1 EACH MISC MISCELLANE PRN (10:14)
[2021-02-26 11:11] LABS: Platelet Count 92 k/uL (150-450)
[2021-02-26] MEDS: levETIRAcetam IV 1,000 MG in SALINE 1 100ML.BAG IVPB SCH ×2 (11:25→22:54)
[2021-02-26] MEDS: POTASSIUM CHLORIDE ER 20 MEQ TAB.ER PO SCH ×3 (11:25→17:28)
--- NOTE | 2021-02-26 11:59 | US ---
EXAMINATION TYPE: US liver DATE OF EXAM: 02/26/2021 COMPARISON: 12/24/2014, 08/24/2020 CLINICAL HISTORY: liver failure. EXAM MEASUREMENTS: Liver Length: 19.7 cm Gallbladder Wall: 0.2 cm CBD: 0.4 cm Right Kidney: 10.9 x 4.7 x 4.9 cm Pancreas: Obscured by bowel gas Liver: Enlarged, heterogeneous, coarse echotexture Gallbladder: wnl Evidence for sonographic Keen's sign: No CBD: wnl Right Kidney: No hydronephrosis or masses seen IMPRESSION: Enlarged, echogenic liver with poor penetration is nonspecific but most commonly due to hepatic steat osis.
--- NOTE | 2021-02-26 12:35 | P.CONS ---
History of Present Illness - Reason for Consult Consult date: 02/26/21 Liver failure, alcohol abuse Requesting physician: Jake Lee - Chief Complaint Nausea, vomiting, weakness, seizure - History of Present Illness A 50-year-old female who presented to the emergency department yesterday for persistent nausea, vomiting, weakness, confusion, and he reported seizure at home. She has a past medical history or significant chronic alcoholism, liver disease, hypertension and hypothyroidism. The patient has a history of heavy alcoholism for the last 2-3 years. She was admitted in August 2020 with elevated LFTs, Ialcoholic hepatitis superimposed on cirrhosis of the liver. Patient states she had a seizure yesterday at home witnessed by her . She denies any abdominal pain, nausea, or vomiting. States she has no previous history of paracentesis. States that she has followed with Dr. Moise and takes lactulose at home. She is alert and oriented 2. Labs include WBC 10.2, hemoglobin 10.8, hematocrit 32.6, platelets 216,000, INR 1.3, total bilirubin 10.3, alkaline phosphatase 279, AST 467, ALT 106, ammonia level 30. Patient also is hyponatremic and hypokalemic. Patient is very drowsy, she will open her eyes and answer questions. She has tremors. States she is currently drinking 1 pint a day. States she's not had any previous seizures in the past. Review of Systems REVIEW OF SYSTEMS: CARDIOPULMONARY: No chest pain or shortness of breath. Gastrointestinal: No abdominal pain. No nausea or vomiting. No hematemesis, coffee-ground emesis. No rectal bleeding, or melena. GENITOURINARY: No dysuria or hematuria. MUSCULOSKELETAL: Reports normal range of motion., Joint pain. SKIN: No rashes. Jaundice. ENDOCRINE: No chills, fevers. No excessive weight gain or loss. No polydipsia or polyuria. PSYCHIATRIC: Unremarkable. NEUROLOGY: Confusion,. Denies dizziness, headache. Reported seizure. ENT: Vision unremarkable. CONSTITUTIONAL: No recent weight loss. No fever, chills, night sweats. Past Medical History Past Medical History: Hypertension, Thyroid Disorder History of Any Multi-Drug Resistant Organisms: None Reported Past Surgical History: Hysterectomy Past Anesthesia/Blood Transfusion Reactions: No Reported Reaction Past Psychological History: Depression Smoking Status: Former smoker Past Alcohol Use History: Abuse Past Drug Use History: None Reported - Past Family History Father Family Medical History: Diabetes Mellitus, Hypertension Additional Family Medical History / Comment(s): ETOH Mother Family Medical History: No Reported History Medications and Allergies Home Medications Medication Instructions Recorded Confirmed Type Levothyroxine Sodium [Synthroid] 100 mg PO DAILY 12/24/14 02/26/21 History Omeprazole [PriLOSEC] 40 mg PO DAILY 08/24/20 02/26/21 History Lactulose 30 gm PO TID 02/26/21 02/26/21 History Allergies Allergy/AdvReac Type Severity Reaction Status Date / Time No Known Allergies Allergy Verified 02/26/21 09:55 Physical Exam Vitals: Vital Signs Temp Pulse Pulse Resp BP BP Pulse Ox 02/26/21 08:26 98.3 F 105 H 22 101/62 93 L 02/26/21 05:34 100 F H 02/26/21 04:26 100.4 F H 110 H 18 91/55 93 L 02/26/21 02:25 99.8 F H 111 H 20 101/66 95 02/26/21 02:12 98.1 F 99 18 130/89 97 02/26/21 00:55 103 H 18 104/77 100 02/25/21 22:31 98.1 F 70 16 147/91 97 Intake and Output 02/25/21 02/26/21 02/26/21 22:59 06:59 14:59 Output Total 700 Balance -700 Output: Urine 700 Other: Voiding Method Bedside Commode # Voids 1 Weight 58.967 kg 58 kg General appearance: The patient is drowsy, oriented 2, appears in no acute distress. HET: Head is normocephalic and atraumatic. Conjunctiva pink. Sclera icteric. Neck: Supple without lymphadenopathy. Trachea midline. Heart: S1 S2. Regular rate and rhythm. Lungs: Clear to auscultation. Abdomen: Soft, nontender, mildly distended with bowel sounds. No guarding or rigidity. Skin: Deeply jaundiced. Extremities: Normal turgor. No pedal edema. Neurological: Alert and oriented 2, self and place. Results CBC & Chem 7: 02/26/21 09:12 02/26/21 09:12 Labs: Abnormal Lab Results - Last 24 Hours (Table) 02/25/21 02/25/21 02/25/21 Range/Units 22:46 22:46 22:46 RBC 2.89 L (3.80-5.40) m/uL Hgb 10.8 L (11.4-16.0) gm/dL Hct 32.6 L (34.0-46.0) % MCV 112.9 H (80.0-100.0) fL MCH 37.3 H (25.0-35.0) pg Plt Count 116 L (150-450) k/uL Neutrophils # 8.1 H (1.3-7.7) k/uL Macrocytosis Marked A PT 13.2 H (9.0-12.0) sec INR 1.3 H (<1.2) Sodium 132 L (137-145) mmol/L Potassium 3.1 L (3.5-5.1) mmol/L Chloride 88 L (98-107) mmol/L Carbon Dioxide 13 L (22-30) mmol/L BUN 3 L (7-17) mg/dL Glucose 141 H (74-99) mg/dL Plasma Lactic Acid Bull (0.7-2.0) mmol/L Magnesium 1.4 L (1.6-2.3) mg/dL Total Bilirubin 10.3 H (0.2-1.3) mg/dL AST 467 H (14-36) U/L ALT 106 H (4-34) U/L Alkaline Phosphatase 279 H (38-126) U/L Ammonia (<30) umol/L 02/26/21 02/26/21 Range/Units 06:48 09:12 RBC (3.80-5.40) m/uL Hgb (11.4-16.0) gm/dL Hct (34.0-46.0) % MCV (80.0-100.0) fL MCH (25.0-35.0) pg Plt Count (150-450) k/uL Neutrophils # (1.3-7.7) k/uL Macrocytosis PT 12.6 H (9.0-12.0) sec INR 1.2 H (<1.2) Sodium (137-145) mmol/L Potassium (3.5-5.1) mmol/L Chloride (98-107) mmol/L Carbon Dioxide (22-30) mmol/L BUN (7-17) mg/dL Glucose (74-99) mg/dL Plasma Lactic Acid Bull 3.9 H* (0.7-2.0) mmol/L Magnesium (1.6-2.3) mg/dL Total Bilirubin (0.2-1.3) mg/dL AST (14-36) U/L ALT (4-34) U/L Alkaline Phosphatase (38-126) U/L Ammonia 30 H (<30) umol/L US - abdomen: report reviewed (Enlarged, echogenic liver with poor penetration is nonspecific but most commonly due to hepatic steatosis) Assessment and Plan (1) Alcoholic hepatitis Narrative/Plan: 40-year-old female with known history of heavy alcohol abuse for the last 2-3 years presented to the hospital with nausea, vomiting, not feeling well, and reportedly had a seizure at home. She was noted to have elevated LFTs, has a history of alcoholic cirrhosis of the liver. On admission she was noted to be jaundiced and confused. No complaints of abdominal pain, nausea, or vomiting. States this was her first seizure. She follows with Dr. Moise for alcoholic cirrhosis of the liver and states she is on lactulose at home. She is still drinking 1 pint a day. Denies any previous paracentesis. Labs include a repeat CT in 0.2, hemoglobin 10.8, hematocrit 32.6, platelet count 167, INR 1.3, ammonia 30, total bilirubin 10.3, alkaline phosphatase 279, AST 467, ALT 106. Elevated liver function tests and jaundice, all consistent with acute alcoholic hepatitis superimposed on alcoholic cirrhosis of the liver. Current Visit: Yes Status: Acute Code(s): K70.10 - ALCOHOLIC HEPATITIS WITHO UT ASCITES SNOMED Code(s): 427621779 (2) Liver cirrhosis Current Visit: Yes Status: Acute Code(s): K74.60 - UNSPECIFIED CIRRHOSIS OF LIVER SNOMED Code(s): 07957387 (3) Hepatic encephalopathy Current Visit: Yes Status: Acute Code(s): K72.90 - HEPATIC FAILURE, UNSPECIFIED WITHOUT COMA SNOMED Code(s): 54281012 (4) Alcohol abuse Current Visit: Yes Status: Acute Code(s): F10.10 - ALCOHOL ABUSE, UNCOMPLICATED SNOMED Code(s): 50488294 (5) Hypokalemia Narrative/Plan: Replace electrolytes Current Visit: No Status: Acute Code(s): E87.6 - HYPOKALEMIA SNOMED Code(s): 33210464 Plan: 1. Continue symptomatic and supportive care 2. Continue to monitor closely for alcohol withdrawal 3. Monitor labs closely 4. Continue lactulose, will add Xifaxan 550 mg twice a day 5. Liver ultrasound ordered and reviewed 6. Acute hepatitis panel ordered 7. Recommend alcohol cessation 8. Seizure precautions Thank you for this consultation, we will continue to follow Dr. Alan I agree with the dictator's note, documented as a scribe by Kayla Greene.
--- NOTE | 2021-02-26 14:49 | P.HPIM ---
History of Present Illness H&P Date: 02/26/21 Chief Complaint: Alcoholic liver disease, seizures His is a 50-year-old female with history of chronic alcohol abuse/dependence- last admission August 2020, drinks a pint of rum every day ,depression, hypothyroidism, alcoholic liver disease, alcoholic cirrhosis, covid 08/2020 and multiple other medical issues, brought into the ER by EMS. ER reports stated she had worsening yellow skin and eyes, persistent nausea vomiting, and last night he witnessed her seizing, thus called EMS. Denies prior history of seizures. T-max 100.4, normal WBC. Patient had quit drinking in September, resumed secondary to stress. Patient denies any further nausea vomiting or abdominal pain. She was initially on lactulose twice a day at home. Upon asking if she had been taking it ,stated she took it yesterday.lactic acid 3.9.Hemoglobin 10.8, hematocrit 32.6, platelets 216,000, INR 1.3, sodium 132, potassium 3.1, magnesium 1.4, troponin pending, total bilirubin 10.3, alkaline p hosphatase 279, AST 467, ALT 106, ammonia level 30. CIWA score 12 @ 0400. Toxicology screen reporting salicylates, acetaminophen, less than 10 serum alcohol. Coronavirus not detected. Denies any chest pain, palpitations or shortness of breath. Keppra initiated in the ER, no further seizure activity. Review of Systems ROS Statement: Those systems with pertinent positive or pertinent negative responses have been documented in the HPI. ROS Other: All systems not noted in ROS Statement are negative. Past Medical History Past Medical History: Hypertension, Thyroid Disorder History of Any Multi-Drug Resistant Organisms: None Reported Past Surgical History: Hysterectomy Past Anesthesia/Blood Transfusion Reactions: No Reported Reaction Past Psychological History: Depression Smoking Status: Former smoker Past Alcohol Use History: Abuse Past Drug Use History: None Reported - Past Family History Father Family Medical History: Diabetes Mellitus, Hypertension Additional Family Medical History / Comment(s): ETOH Mother Family Medical History: No Reported History Medications and Allergies Home Medications Medication Instructions Recorded Confirmed Type Levothyroxine Sodium [Synthroid] 100 mg PO DAILY 12/24/14 02/26/21 History Omeprazole [PriLOSEC] 40 mg PO DAILY 08/24/20 02/26/21 History Lactulose 30 gm PO TID 02/26/21 02/26/21 History Allergies Allergy/AdvReac Type Severity Reaction Status Date / Time No Known Allergies Allergy Verified 02/26/21 09:55 Physical Exam Vitals: Vital Signs Temp Pulse Pulse Resp BP BP Pulse Ox 02/26/21 08:26 98.3 F 105 H 22 101/62 93 L 02/26/21 05:34 100 F H 02/26/21 04:26 100.4 F H 110 H 18 91/55 93 L 02/26/21 02:25 99.8 F H 111 H 20 101/66 95 02/26/21 02:12 98.1 F 99 18 130/89 97 02/26/21 00:55 103 H 18 104/77 100 02/25/21 22:31 98.1 F 70 16 147/91 97 Intake and Output 02/25/21 02/26/21 02/26/21 22:59 06:59 14:59 Output Total 700 Balance -700 Output: Urine 700 Other: Voiding Method Bedside Commode # Voids 1 Weight 58.967 kg 58 kg PHYSICAL EXAM: VITAL SIGNS: [As above] GENERAL: Sleepy, arousable, alert and oriented 2, jaundice HEENT: Pupils equal ,Scleral icterus. NECK: No JVD. No thyroid enlargement. No LNs CARDIOVASCULAR: S1, S2 regular. No murmur RESPIRATION: Breath sounds diminished in the bases. ABDOMEN: Soft, nontender . No guarding. no masses palpable. Positive hepatosplenomegaly.Hyperactive Bowel sounds. LEGS: No edema. no swelling PSYCHIATRY: Alert and oriented X1 NERVOUS SYSTEM: Cranial nerves II through XII grossly intact, and on 2, moves all extremities. Tremors present. Strength and sensation grossly intact Skin: Warm and dry, no rash Lymphatic system. No LN, neck axilla Results CBC & Chem 7: 02/26/21 09:12 02/26/21 09:12 Labs: Abnormal Lab Results - Last 24 Hours (Table) 02/25/21 02/25/21 02/25/21 Range/Units 22:46 22:46 22:46 RBC 2.89 L (3.80-5.40) m/uL Hgb 10.8 L (11.4-16.0) gm/dL Hct 32.6 L (34.0-46.0) % MCV 112.9 H (80.0-100.0) fL MCH 37.3 H (25.0-35.0) pg Plt Count 116 L (150-450) k/uL Neutrophils # 8.1 H (1.3-7.7) k/uL Macrocytosis Marked A PT 13.2 H (9.0-12.0) sec INR 1.3 H (<1.2) Sodium 132 L (137-145) mmol/L Potassium 3.1 L (3.5-5.1) mmol/L Chloride 88 L (98-107) mmol/L Carbon Dioxide 13 L (22-30) mmol/L BUN 3 L (7-17) mg/dL Glucose 141 H (74-99) mg/dL Plasma Lactic Acid Bull (0.7-2.0) mmol/L Magnesium 1.4 L (1.6-2.3) mg/dL Total Bilirubin 10.3 H (0.2-1.3) mg/dL AST 467 H (14-36) U/L ALT 106 H (4-34) U/L Alkaline Phosphatase 279 H (38-126) U/L Ammonia (<30) umol/L 02/26/21 02/26/21 Range/Units 06:48 09:12 RBC (3.80-5.40) m/uL Hgb (11.4-16.0) gm/dL Hct (34.0-46.0) % MCV (80.0-100.0) fL MCH (25.0-35.0) pg Plt Count (150-450) k/uL Neutrophils # (1.3-7.7) k/uL Macrocytosis PT 12.6 H (9.0-12.0) sec INR 1.2 H (<1.2) Sodium (137-145) mmol/L Potassium (3.5-5.1) mmol/L Chloride (98-107) mmol/L Carbon Dioxide (22-30) mmol/L BUN (7-17) mg/dL Glucose (74-99) mg/dL Plasma Lactic Acid Bull 3.9 H* (0.7-2.0) mmol/L Magnesium (1.6-2.3) mg/dL Total Bilirubin (0.2-1.3) mg/dL AST (14-36) U/L ALT (4-34) U/L Alkaline Phosphatase (38-126) U/L Ammonia 30 H (<30) umol/L Thrombosis Risk Factor Assmnt - Choose All That Apply Each Factor Represents 1 point: Age 41-60 years, Medical pt on bed rest Other Risk Factors: No Other congenital or acquired thrombophilia - If yes, enter type in comment: No Thrombosis Risk Factor Assessment Total Risk Factor Score: 2 Thrombosis Risk Factor Assessment Level: Low Risk Assessment and Plan Assessment: New-onset seizure suspect secondary to alcohol abuse Chronic Alcohol abuse with alcohol withdrawal syndrome ,drinks 1 pint of rum daily Altered mental status secondary to Acute metabolic, toxic and hepatic encephalopathy. Possible sepsis, lactic acidosis, workup in progress. Hyperammonemia Hypokalemia Hypomagnesemia Hyponatremia Elevated LFTs secondary to alcohol abuse Hyperbilirubinemia with jaundice Alcoholic Liver cirrhosis suspected Thrombocytopenia Hypercoagulopathy Chronic anemia Hypothyroidism Depression Plan: Continue on current medication regime ,monitoring and symptomatic treatment. F/U Labs pending, Blood cultures, chest x-ray, UA/CX ordered. Empiric antibiotics initiated. Lactulose ordered for hyperammonemia. Maintain CIWA score. GI consulted. Psychiatry consulted. Liver ultrasound ordered. Prognosis guarded given multiple complex medical issues. The impression and plan of care has been dictated as directed. : I performed a history and examination of this patient, discussed the same with the dictator. I agree with the dictator's note ,documented as a scribe. Any additional findings or plans will be noted.
[2021-02-26] MEDS: LACTULOSE 20 GM/30 ML CUP PO SCH ×3 (15:05→20:07)
--- NOTE | 2021-02-26 16:54 | XR ---
EXAMINATION TYPE: XR chest 2V DATE OF EXAM: 02/26/2021 COMPARISON: 08/27/2020 HISTORY: Fever. Seizure. TECHNIQUE: 2 views FINDINGS: There is some linear density at the lung bases. There is no heart failure. Heart size is no rmal. There are no hilar masses. There are chest leads. IMPRESSION: Mild subsegmental atelectasis at the lung bases is improved compared to old exam. Normal heart.
[2021-02-26] MEDS: RIFAXIMIN 550 MG TABLET PO SCH (20:07)
[2021-02-26 20:37] LABS: Hepatitis A Antibody IgM Non-Reactive (Non-Reactive); Hepatitis B Core IgM Non-Reactive (Non-Reactive); Hepatitis B Surface Antigen Non-Reactive (Non-Reactive); Hepatitis C IgG Antibody Non-Reactive (Non-Reactive)
[2021-02-27] MEDS: LORazepam 2 MG/ML INJ IV PRN ×3 (01:29→23:31)
--- NOTE | 2021-02-27 08:04 | CONS ---
CONSULTATION DATE OF CONSULTATION: 02/26/2021. PURPOSE FOR CONSULTATION: Evaluate for issues of alcohol dependence. HISTORY OF PRESENTING ILLNESS: The patient is a 50-year-old female with a history of chronic alcohol abuse/dependence. She was last admitted August 2020 for alcohol-related issues. She tested Covid positive. Dr. Cabrera noted that she is "a heavy drinker daily." At her August admission, she apparently stopped drinking when she realized she was Covid positive. She was noted to have elevated liver enzymes. She has been diagnosed with alcoholic cirrhosis. On the day leading up to her admission, she was having persistent nausea and vomiting and ultimately developed seizures. As noted in her history, she had stopped drinking alcohol in September, though indicated that she had returned to drinking at some point since then, which she says was because of "stress." The only stress she indicated during the interview was paying bills, though she did provide details to that. The record indicates that she has been a "heavy drinker for the last 2-3 years." Also the record noted that she states that she drinks 1 pint of alcohol per day. Apparently the patient had made statements to the nurse about her preference for drinking to address stress. There was some question about that her nature of drinking could be lethal for her and she apparently had made some comments about, that it would not be an issue for her to succumb to her drinking. The details are unclear and the patient herself tended to minimize those remarks when I asked her directly. When I interviewed the patient, she indicated that she has had past outpatient substance abuse treatment, though she did not provide the details. She said she has been in some counseling. She indicated that she does not at all like AA, though giving no details. She said that she had not been in any inpatient substance use treatment program and would not go into an inpatient recovery program at this point in time. She said that her drinks, though he said that he would stop drinking with her, and that she accepted the idea that she should stop drinking. She said she will seek outpatient treatment to get help in this regard. MENTAL STATUS: Patient was as sitting up in bed. She gave fair eye contact. She was somewhat restless and tremulous. She answered questions with brief responses. She did not say a lot. She seemed to minimize issues of drinking. When I talked to her, she had a blunted affect. Her mood was reserved. It was difficult to assess if she was distressed in any way. Since admission, blood pressure has generally been on the low side while her pulse has been up. Last vital signs at 4:00 pm today included BP 106/68, pulse 109, temp 98.7, respirations 20, oxygen saturation 96. CIWA score this morning at 4:16 am was 12. Since then, her numbers were 4, 1, and 4 at 4:00 pm. ASSESSMENT: This 50-year-old female has alcohol dependence and advanced complications related to alcohol use. I made an effort to talk to her about alcohol related issues and paths to moving to abstinence from alcohol. I would doubt that the patient was able to follow the conversation very well. She tended to agree with things that I said in regard to outpatient followup, though an early acute withdrawal. Short-term memory is very limited. In addition, her persistent drinking in the face of significant alcohol related complications certainly would raise questions to the motivation, as well as ability to follow through with a program of abstinence. I did share with the patient that she would do the best if she did go into an inpatient program, though she was not accepting of that. I called her to get further information. I did not get any get an answer, though I did leave my number. Hopefully, I could get additional information from the in regards to the broad issues relating to the patient's alcohol dependence. In regards to her seizure related to this admission, the best I was able to tell from the patient, she has not had a previous alcohol related seizure or indications of having had delirium tremens. It is not clear that the patient had understanding of the alcohol-related liver disease that she is suffering from from. At this point, the patient stated that she would be willing to engage in outpatient counseling to assist with alcohol abstinence. I recommended that she get involved in some assertive counseling that might include twice a week sessions, in addition to group sessions. Patient says she has had some of those experiences in the past that were positive. I would suggest the patient would also benefit from going on Antabuse. Recent studies over a number of years had indicated that Antabuse has been the most successful medication intervention to help with attaining alcohol abstinence. Social Work should consult with the patient to work out an appropriate referral for out patient substance use therapy for her Alcohol Dependence. Involving her may be important. MMODL / IJN: [id number] / JOVANI
[2021-02-27 08:15] LABS: ALT 84 U/L (4-34); AST 331 U/L (14-36); African American GFR (CKD) >90 (>60 ml/min/1.73 sqM); Alkaline Phosphatase 195 U/L (38-126); Anion Gap 5 mmol/L; Blood Urea Nitrogen <2 mg/dL (7-17); Calcium 8.9 mg/dL (8.4-10.2); Carbon Dioxide 28 mmol/L (22-30); Chloride 105 mmol/L (98-107); Glucose 86 mg/dL (74-99); HCT 28.1 % (34.0-46.0); HGB 9.1 gm/dL (11.4-16.0); Lipase 225 U/L (23-300); MCH 37.6 pg (25.0-35.0); MCHC 32.4 g/dL (31.0-37.0); Macrocytosis Marked; Magnesium 1.7 mg/dL (1.6-2.3); Mean Platelet Volume 9.7; Non-African American GFR(CKD) >90 (>60 ml/min/1.73 sqM); Phosphorus 1.3 mg/dL (2.5-4.5); Potassium 3.5 mmol/L (3.5-5.1); RBC 2.42 m/uL (3.80-5.40); RDW 14.5 % (11.5-15.5); Sodium 138 mmol/L (137-145); Total Bilirubin 10.4 mg/dL (0.2-1.3); Total Protein 6.2 g/dL (6.3-8.2); WBC 5.8 k/uL (3.8-10.6)
[2021-02-27 08:36] LABS: MCV 115.9 fL (80.0-100.0); Platelet Count 99 k/uL (150-450)
[2021-02-27 09:52] LABS: Monocytes # (M) 0.29 k/uL (0-1.0); Neutrophils # (M) 4.41 k/uL (1.3-7.7); Neutrophils % (M) 76 %; Nucleated Red Blood Cells 0 /100 WBC (0-0); Total Cells Counted 100
[2021-02-27 09:54] LABS: Target Cells Present
[2021-02-27] MEDS: LACTULOSE 20 GM/30 ML CUP PO SCH ×2 (10:09→12:53)
[2021-02-27] MEDS: THIAMINE 100 MG TAB PO SCH ×2 (10:09→16:44)
[2021-02-27] MEDS: PANTOPRAZOLE 40 MG/10 ML VIAL IV SCH (10:09)
[2021-02-27] MEDS: RIFAXIMIN 550 MG TABLET PO SCH ×2 (10:10→20:42)
[2021-02-27] MEDS: levETIRAcetam IV 1,000 MG in SALINE 1 100ML.BAG IVPB SCH ×2 (11:48→23:24)
--- NOTE | 2021-02-27 13:16 | P.PN ---
Subjective Progress Note Date: 02/27/21 Principal diagnosis: New-onset seizures, alcoholic cirrhosis, alcoholic liver disease Mari is a 56-year-old female well-known to my practice who presented to the hospital with new onset seizures secondary to alcoholic liver disease patient drinks approximately a pint of rum a day. Apparently decided to abruptly stop drinking and began seizing at home during which time her called EMS and patient was brought to the emergency room and subsequently admitted to the [facility]. Objective - Vital Signs Vital signs: Vital Signs Temp 98.7 F 02/27/21 08:00 Pulse 116 H 02/27/21 11:52 Resp 20 02/27/21 11:52 BP 103/68 02/27/21 11:52 Pulse Ox 96 02/27/21 11:52 Intake & Output 02/26/21 02/27/21 02/27/21 18:59 06:59 18:59 Intake Total 1011.2 120 Balance 1011.2 120 Weight 59.5 kg Intake: Intake, IV Titration 1011.2 Amount Mvi, Adult No.4 with Vit 1011.2 K 10 ml Thiamine 100 mg Folic Acid 1 mg In 0.9% NaCl with KCl 20 Meq/l 1, 000 ml @ 100 mls/hr IV . BY DURATION [facility] Rx#: [id number] Oral 120 Other: Voiding Method Bedside Commode Bedside Commode Bedside Commode # Voids 1 1 0 # Bowel Movements 0 1 - Exam General: [Patient awake, alert and oriented times 3. Patient in no acute distress.] HEENT: [PERRL. mild scleral icterus, EOMI. No pharyngeal erythema or exudate.] Neck: [No adenopathy.] Cardiac: [Heart regular in rate and rhythm. No S3. No S4. No clicks, rubs. No murmur.] Lungs: [Clear to auscultation bilaterally.] Abdomen: [No mass. Enlarged liver. Bowel sounds presnt and normoactive in all 4 quadrants.] Extremes: [No edema no cyanosis no claudication normal pulses] : Normal female genitalia Musculoskeletal: [No joint erythema, edema or tenderness.] Skin: [No rash.] Neurologic: [No lateralizing deficits. CN II - XII grossly intact.] Lymphatic: [No adenopathy.] - Labs CBC & Chem 7: 02/27/21 07:30 02/27/21 07:30 Labs: Abnormal Lab Results - Last 24 Hours (Table) 02/26/21 02/26/21 02/27/21 Range/Units 09:12 15:51 07:30 RBC 2.42 L (3.80-5.40) m/uL Hgb 9.1 L (11.4-16.0) gm/dL Hct 28.1 L (34.0-46.0) % MCV 115.9 H D (80.0-100.0) fL MCH 37.6 H (25.0-35.0) pg Plt Count 99 L (150-450) k/uL Macrocytosis Marked A BUN (7-17) mg/dL Plasma Lactic Acid Bull 2.2 H* (0.7-2.0) mmol/L Phosphorus (2.5-4.5) mg/dL Total Bilirubin (0.2-1.3) mg/dL AST (14-36) U/L ALT (4-34) U/L Alkaline Phosphatase (38-126) U/L Total Protein (6.3-8.2) g/dL Albumin (3.5-5.0) g/dL Procalcitonin 0.70 H (0.02-0.09) ng/mL 02/27/21 Range/Units 07:30 RBC (3.80-5.40) m/uL Hgb (11.4-16.0) gm/dL Hct (34.0-46.0) % MCV (80.0-100.0) fL MCH (25.0-35.0) pg Plt Count (150-450) k/uL Macrocytosis BUN <2 L (7-17) mg/dL Plasma Lactic Acid Bull (0.7-2.0) mmol/L Phosphorus 1.3 L (2.5-4.5) mg/dL Total Bilirubin 10.4 H (0.2-1.3) mg/dL AST 331 H (14-36) U/L ALT 84 H (4-34) U/L Alkaline Phosphatase 195 H (38-126) U/L Total Protein 6.2 L (6.3-8.2) g/dL Albumin 3.0 L (3.5-5.0) g/dL Procalcitonin (0.02-0.09) ng/mL Microbiology - Last 24 Hours (Table) 02/26/21 09:18 Blood Culture - Preliminary Blood No Growth after 24 hours 02/26/21 09:12 Blood Culture - Preliminary Blood No Growth after 24 hours Assessment and Plan (1) Alcohol abuse Current Visit: Yes Status: Acute Code(s): F10.10 - ALCOHOL ABUSE, UNCOMPLICATED SNOMED Code(s): 67898237 (2) Alcohol withdrawal syndrome Current Visit: Yes Status: Acute Code(s): F10.239 - ALCOHOL DEPENDENCE WITH WITHDRAWAL, UNSPECIFIED SNOMED Code(s): 413115825 (3) Alcoholic hepatitis Current Visit: Yes Status: Acute Code(s): K70.10 - ALCOHOLIC HEPATITIS WITHOUT ASCITES SNOMED Code(s): 735305058 (4) Altered mental status Current Visit: Yes Status: Acute Code(s): R41.82 - ALTERED MENTAL STATUS, UNSPECIFIED SNOMED Code(s): 483746642 (5) Hepatic encephalopathy Current Visit: Yes Status: Acute Code(s): K72.90 - HEPATIC FAILURE, UNSPECIFIED WITHOUT COMA SNOMED Code(s): 44846736 (6) Hypomagnesemia Current Visit: Yes Status: Acute Code(s): E83.42 - HYPOMAGNESEMIA SNOMED Code(s): 548238688 (7) Liver cirrhosis Current Visit: Yes Status: Acute Code(s): K74.60 - UNSPECIFIED CIRRHOSIS OF LIVER SNOMED Code(s): 24862654 (8) New onset seizure Current Visit: Yes Status: Acute Code(s): R56.9 - UNSPECIFIED CONVULSIONS SNOMED Code(s): 50671474 Plan: Admitted to the hospital for new onset of alcohol withdrawal seizures [facility] protocol Substance abuse counseling, patient has resistant in the past We'll follow closely Time with Patient: Greater than 30
[2021-02-27 17:31] LABS: Appearance,Urine Clear (Clear); Bilirubin,Urine 3+ (Negative); Blood,Urine Negative (Negative); Color,Urine Dark Yellow; Glucose,Urine (UA) Negative (Negative); Ketones,Urine Negative (Negative); Leukocyte Esterase,Urine Negative (Negative); Nitrite,Urine Negative (Negative); Protein,Urine Negative (Negative); Specific Gravity,Urine 1.013 (1.001-1.035); Urobilinogen,Urine <2.0 mg/dL (<2.0)
[2021-02-27] MEDS: ACETAMINOPHEN TAB 325 MG TAB PO PRN (23:26)
[2021-02-28] MEDS: THIAMINE 100 MG TAB PO SCH ×2 (06:11→16:48)
[2021-02-28] MEDS: LEVOTHYROXINE 100 MCG TAB PO SCH (06:11)
[2021-02-28] MEDS: PANTOPRAZOLE 40 MG/10 ML VIAL IV SCH (09:04)
[2021-02-28] MEDS: RIFAXIMIN 550 MG TABLET PO SCH ×2 (09:05→22:39)
[2021-02-28] MEDS: levETIRAcetam IV 1,000 MG in SALINE 1 100ML.BAG IVPB SCH ×2 (10:25→22:40)
--- NOTE | 2021-02-28 11:20 | P.PN ---
Subjective Progress Note Date: 02/27/21 Principal diagnosis: Alcoholic hepatitis, alcoholic cirrhosis, encephalopathy Patient is seen lying in bed somnolent but in no apparent distress. No acute events reported. Objective - Vital Signs Vital signs: Vital Signs Temp 98.7 F 02/27/21 08:00 Pulse 109 H 02/27/21 08:00 Resp 20 02/27/21 08:00 BP 91/55 02/27/21 08:00 Pulse Ox 94 L 02/27/21 08:00 Intake & Output 02/26/21 02/27/21 02/27/21 18:59 06:59 18:59 Intake Total 120 Balance 120 Weight 59.5 kg Intake: Oral 120 Other: Voiding Method Bedside Commode Bedside Commode Bedside Commode # Voids 1 1 0 # Bowel Movements 0 1 - Exam On physical examination, patient appears comfortable in no apparent distress. HEAD: Normocephalic, atraumatic. EYES: No scleral icterus. No conjunctival injection. MOUTH: No lesions, tongue midline. NECK: Trachea midline, no gross abnormalities. ABDOMEN: Soft, nontender to palpation. Bowel sounds are positive. No organomegaly. No guarding or rigidity. EXTREMITIES: No pedal edema. SKIN: No rashes, no jaundice. NEUROLOGIC: Alert and oriented only to person, and the patient is confused. No focal deficits. - Labs CBC & Chem 7: 02/27/21 07:30 02/27/21 07:30 Labs: Abnormal Lab Results - Last 24 Hours (Table) 02/26/21 02/26/21 02/26/21 Range/Units 09:12 11:20 15:51 RBC (3.80-5.40) m/uL Hgb (11.4-16.0) gm/dL Hct (34.0-46.0) % MCV (80.0-100.0) fL MCH (25.0-35.0) pg Plt Count (150-450) k/uL Macrocytosis BUN (7-17) mg/dL Plasma Lactic Acid Bull 3.6 H* 2.2 H* (0.7-2.0) mmol/L Phosphorus (2.5-4.5) mg/dL Total Bilirubin (0.2-1.3) mg/dL AST (14-36) U/L ALT (4-34) U/L Alkaline Phosphatase (38-126) U/L Total Protein (6.3-8.2) g/dL Albumin (3.5-5.0) g/dL Procalcitonin 0.70 H (0.02-0.09) ng/mL 02/27/21 02/27/21 Range/Units 07:30 07:30 RBC 2.42 L (3.80-5.40) m/uL Hgb 9.1 L (11.4-16.0) gm/dL Hct 28.1 L (34.0-46.0) % MCV 115.9 H D (80.0-100.0) fL MCH 37.6 H (25.0-35.0) pg Plt Count 99 L (150-450) k/uL Macrocytosis Marked A BUN <2 L (7-17) mg/dL Plasma Lactic Acid Bull (0.7-2.0) mmol/L Phosphorus 1.3 L (2.5-4.5) mg/dL Total Bilirubin 10.4 H (0.2-1.3) mg/dL AST 331 H (14-36) U/L ALT 84 H (4-34) U/L Alkaline Phosphatase 195 H (38-126) U/L Total Protein 6.2 L (6.3-8.2) g/dL Albumin 3.0 L (3.5-5.0) g/dL Procalcitonin (0.02-0.09) ng/mL Microbiology - Last 24 Hours (Table) 02/26/21 09:18 Blood Culture - Preliminary Blood No Growth after 24 hours 02/26/21 09:12 Blood Culture - Preliminary Blood No Growth after 24 hours Assessment and Plan (1) Alcoholic hepatitis Narrative/Plan: 40-year-old female with known history of heavy alcohol abuse for the last 2-3 years presented to the hospital with nausea, vomiting, not feeling well, and reportedly had a seizure at home. She was noted to have elevated LFTs, has a history of alcoholic cirrhosis of the liver. On admission she was noted to be jaundiced and confused. No complaints of abdominal pain, nausea, or vomiting. States this was her first seizure. She follows with Dr. Moise for alcoholic cirrhosis of the liver and states she is on lactulose at home. She is still drinking 1 pint a day. Denies any previous paracentesis. Labs include a repeat CT in 0.2, hemoglobin 10.8, hematocrit 32.6, platelet count 167, INR 1.3, ammonia 30, total bilirubin 10.3, alkaline phosphatase 279, AST 467, ALT 106. Elevated liver function tests and jaundice, all consistent with acute alcoholic hepatitis superimposed on alcoholic cirrhosis of the liver, these have remained elevated stable. Current Visit: Yes Status: Acute Code(s): K70.10 - ALCOHOLIC HEPATITIS WITHOUT ASCITES SNOMED Code(s): 482745391 (2) Alcohol abuse Current Visit: Yes Status: Acute Code(s): F10.10 - ALCOHOL ABUSE, UNCOMPLICATED SNOMED Code(s): 13626488 (3) Alcohol withdrawal syndrome Current Visit: Yes Status: Acute Code(s): F10.239 - ALCOHOL DEPENDENCE WITH WITHDRAWAL, UNSPECIFIED SNOMED Code(s): 193994752 (4) Hepatic encephalopathy Current Visit: Yes Status: Acute Code(s): K72.90 - HEPATIC FAILURE, UNSPECIFIED WITHOUT COMA SNOMED Code(s): 98781512 (5) Liver cirrhosis Current Visit: Yes Status: Acute Code(s): K74.60 - UNSPECIFIED CIRRHOSIS OF LIVER SNOMED Code(s): 66424680 Plan: 1. Continue symptomatic and supportive care 2. Continue to monitor closely for alcohol withdrawal 3. Monitor labs closely 4. Continue lactulose, will add Xifaxan 550 mg twice a day 5. Liver ultrasound ordered and reviewed 6. Acute hepatitis panel ordered 7. Recommend alcohol cessation 8. Seizure precautions
[2021-02-28 12:06] LABS: ALT 76 U/L (4-34); AST 252 U/L (14-36); African American GFR (CKD) >90 (>60 ml/min/1.73 sqM); Albumin 2.9 g/dL (3.5-5.0); Alkaline Phosphatase 200 U/L (38-126); Anion Gap 8 mmol/L; Blood Urea Nitrogen <2 mg/dL (7-17); Calcium 8.7 mg/dL (8.4-10.2); Carbon Dioxide 24 mmol/L (22-30); Chloride 109 mmol/L (98-107); Glucose 84 mg/dL (74-99); Magnesium 1.4 mg/dL (1.6-2.3); Non-African American GFR(CKD) >90 (>60 ml/min/1.73 sqM); Potassium 3.7 mmol/L (3.5-5.1); Sodium 141 mmol/L (137-145); Total Bilirubin 9.3 mg/dL (0.2-1.3)
[2021-02-28 12:33] LABS: HCT 28.8 % (34.0-46.0); HGB 9.1 gm/dL (11.4-16.0); Hypochromasia Slight; MCH 37.5 pg (25.0-35.0); MCHC 31.4 g/dL (31.0-37.0); MCV 119.4 fL (80.0-100.0); Macrocytosis Marked; Mean Platelet Volume 10.6; Platelet Count 132 k/uL (150-450); RBC 2.42 m/uL (3.80-5.40); RDW 15.2 % (11.5-15.5); WBC 5.9 k/uL (3.8-10.6)
[2021-02-28] MEDS ORDERED: Magnesium Replacement Protocol 1 EACH MISC MISCELLANE PRN (13:42)
[2021-02-28 13:53] LABS: Band Neutrophils % 1 %; Eosinophils # (M) 0.12 k/uL (0-0.7); Lymphocytes # (M) 1.83 k/uL (1.0-4.8); Monocytes # (M) 0.35 k/uL (0-1.0); Myelocytes # (M) 0.06 k/uL (0); Myelocytes % 1 %; Neutrophils % (M) 61 %; Nucleated Red Blood Cells 0 /100 WBC (0-0); Total Cells Counted 200
[2021-02-28 13:54] LABS: Polychromasia Present
[2021-02-28] MEDS: MAGNESIUM SULFATE-D5W PMX 1 GM in DEXTROSE/WATER 1 100ML.BAG IVPB SCH ×3 (13:55→16:07)
[2021-02-28] MEDS: LACTULOSE 20 GM/30 ML CUP PO SCH ×2 (16:48→22:40)
[2021-03-01] MEDS: LEVOTHYROXINE 100 MCG TAB PO SCH (05:40)
[2021-03-01 06:30] LABS: ALT 64 U/L (4-34); AST 195 U/L (14-36); African American GFR (CKD) >90 (>60 ml/min/1.73 sqM); Albumin 2.8 g/dL (3.5-5.0); Albumin/Globulin Ratio 0.9; Alkaline Phosphatase 195 U/L (38-126); Anion Gap 7 mmol/L; Blood Urea Nitrogen <2 mg/dL (7-17); Calcium 8.3 mg/dL (8.4-10.2); Carbon Dioxide 23 mmol/L (22-30); Chloride 106 mmol/L (98-107); Globulin 3.2 g/dL; Glucose 96 mg/dL (74-99); Magnesium 1.7 mg/dL (1.6-2.3); Non-African American GFR(CKD) >90 (>60 ml/min/1.73 sqM); Potassium 3.4 mmol/L (3.5-5.1); Sodium 136 mmol/L (137-145)
[2021-03-01 06:34] LABS: Basophils % (A) 1 %; Eosinophils # (A) 0.1 k/uL (0-0.7); Eosinophils % (A) 1 %; HCT 27.4 % (34.0-46.0); Lymphocytes # (A) 1.3 k/uL (1.0-4.8); Lymphocytes % (A) 22 %; MCH 38.3 pg (25.0-35.0); MCHC 32.6 g/dL (31.0-37.0); MCV 117.4 fL (80.0-100.0); Macrocytosis Marked; Mean Platelet Volume 9.5; Monocytes # (A) 0.4 k/uL (0-1.0); Monocytes % (A) 7 %; Neutrophils % (A) 67 %; Platelet Count 169 k/uL (150-450); RBC 2.34 m/uL (3.80-5.40); RDW 15.5 % (11.5-15.5)
--- NOTE | 2021-03-01 07:27 | P.PN ---
Subjective Progress Note Date: 02/28/21 Principal diagnosis: Alcoholic hepatitis, alcoholic cirrhosis, encephalopathy Patient is seen sitting bedside tolerating diet. No acute events reported. Objective - Vital Signs Vital signs: Vital Signs Temp 98.1 F 02/28/21 07:38 Pulse 110 H 02/28/21 07:38 Resp 18 02/28/21 07:38 BP 95/66 02/28/21 07:38 Pulse Ox 97 02/28/21 07:38 Intake & Output 02/27/21 02/28/21 02/28/21 18:59 06:59 18:59 Intake Total 1438 1011.2 448.333 Balance 1438 1011.2 448.333 Weight 59 kg Intake: Intake, IV Titration 1000 1011.2 328.333 Amount 0.9% NaCl with KCl 20 Meq 1000 /l 1,000 ml @ 100 mls/hr IV .BY DURATION [facility] Rx#: [id number] Mvi, Adult No.4 with Vit 1011.2 328.333 K 10 ml Thiamine 100 mg Folic Acid 1 mg In 0.9% NaCl with KCl 20 Meq/l 1, 000 ml @ 100 mls/hr IV . BY DURATION [facility] Rx#: [id number] Oral 438 120 Other: Voiding Method Bedside Commode Bedside Commode Bedside Commode # Voids 0 1 # Bowel Movements 3 - Exam On physical examination, patient appears comfortable in no apparent distress. HEAD: Normocephalic, atraumatic. EYES: No scleral icterus. No conjunctival injection. MOUTH: No lesions, tongue midline. NECK: Trachea midline, no gross abnormalities. ABDOMEN: Soft, nontender to palpation. Bowel sounds are positive. No organomegaly. No guarding or rigidity. EXTREMITIES: No pedal edema. SKIN: No rashes, no jaundice. NEUROLOGIC: Alert and oriented only to person, place and time. No focal deficits. - Labs CBC & Chem 7: 03/01/21 05:03 03/01/21 05:03 Labs: Abnormal Lab Results - Last 24 Hours (Table) 02/27/21 Range/Units 14:31 Urine Bilirubin 3+ H (Negative) Microbiology - Last 24 Hours (Table) 02/26/21 09:18 Blood Culture - Preliminary Blood No Growth after 24 hours 02/26/21 09:12 Blood Culture - Preliminary Blood No Growth after 24 hours Assessment and Plan (1) Alcoholic hepatitis Narrative/Plan: 40-year-old female with known history of heavy alcohol abuse for the last 2-3 years presented to the hospital with nausea, vomiting, not feeling well, and reportedly had a seizure at home. She was noted to have elevated LFTs, has a history of alcoholic cirrhosis of the liver. On admission she was noted to be jaundiced and confused. No complaints of abdominal pain, nausea, or vomiting. States this was her first seizure. She follows with Dr. Moise for alcoholic cirrhosis of the liver and states she is on lactulose at home. She is still drinking 1 pint a day. Denies any previous paracentesis. Labs include a repeat CT in 0.2, hemoglobin 10.8, hematocrit 32.6, platelet count 167, INR 1.3, ammonia 30, total bilirubin 10.3, alkaline phosphatase 279, AST 467, ALT 106. Elevated liver function tests and jaundice, all consistent with acute alcoholic hepatitis superimposed on alcoholic cirrhosis of the liver, these have remained elevated stable. Current Visit: Yes Status: Acute Code(s): K70.10 - ALCOHOLIC HEPATITIS W [facility] ASCITES SNOMED Code(s): 780224324 (2) Alcohol abuse Current Visit: Yes Status: Acute Code(s): F10.10 - ALCOHOL ABUSE, UNCOMPLICATED SNOMED Code(s): 05349091 (3) Alcohol withdrawal syndrome Current Visit: Yes Status: Acute Code(s): F10.239 - ALCOHOL DEPENDENCE WITH WITHDRAWAL, UNSPECIFIED SNOMED Code(s): 203287129 (4) Hepatic encephalopathy Current Visit: Yes Status: Acute Code(s): K72.90 - HEPATIC FAILURE, UNSPECIFIED WITHOUT COMA SNOMED Code(s): 25120282 (5) Liver cirrhosis Current Visit: Yes Status: Acute Code(s): K74.60 - UNSPECIFIED CIRRHOSIS OF LIVER SNOMED Code(s): 17631293 Plan: 1. Continue symptomatic and supportive care 2. Continue to monitor closely for alcohol withdrawal 3. Monitor labs closely 4. Continue lactulose, and Xifaxan 550 mg twice a day 5. Liver ultrasound ordered and reviewed 6. Acute hepatitis panel ordered 7. Recommend alcohol cessation 8. Seizure precautions 9. Alcohol abstinence, continue to monitor and treat for alcohol withdrawal
[2021-03-01 07:34] LABS: Polychromasia Present
[2021-03-01] MEDS: LACTULOSE 20 GM/30 ML CUP PO SCH ×4 (07:37→23:14)
[2021-03-01] MEDS: THIAMINE 100 MG TAB PO SCH ×2 (07:37→17:37)
[2021-03-01] MEDS: PANTOPRAZOLE 40 MG/10 ML VIAL IV SCH (07:38)
[2021-03-01] MEDS: RIFAXIMIN 550 MG TABLET PO SCH ×2 (07:38→23:14)
--- NOTE | 2021-03-01 09:55 | P.PN ---
Subjective Progress Note Date: 03/01/21 Principal diagnosis: Alcoholic hepatitis, : Alcoholic cirrhosis, encephalopathy Patient is seen and examined lying in bed sleeping. She denies any nausea or vomiting, denies abdominal pain. No bowel movement this morning but had a couple through the night. Her ammonia level was elevated this morning at 40. She is alert and oriented 3. Still has tremors. Objective - Vital Signs Vital signs: Vital Signs Temp 99.1 F 03/01/21 05:00 Pulse 95 03/01/21 05:00 Resp 16 03/01/21 05:00 BP 106/71 03/01/21 05:00 Pulse Ox 94 L 03/01/21 05:00 Intake & Output 02/28/21 03/01/21 03/01/21 18:59 06:59 18:59 Intake Total 900.034 4107.2 Balance 653.757 8015.2 Weight 58 kg Intake: Intake, IV Titration 584.715 2394.2 Amount Mvi, Adult No.4 with Vit 692.534 7969.2 K 10 ml Thiamine 100 mg Folic Acid 1 mg In 0.9% NaCl with KCl 20 Meq/l 1, 000 ml @ 100 mls/hr IV . BY DURATION [facility] Rx#: [id number] Oral 480 Other: Voiding Method Bedside Commode Toilet # Voids 2 5 # Bowel Movements 4 - Exam General appearance: The patient is alert, oriented, appears in no acute distress. HET: Head is normocephalic and atraumatic. Conjunctiva pink. Sclera icteric. Neck: Supple without lymphadenopathy. Abdomen: Soft, nontender, nondistended with bowel sounds. No guarding or rigidity. Extremities: Normal skin color and turgor. No pedal edema Skin: No rashes, jaundice Neurological: No focal deficits. Alert and oriented 3. - Labs CBC & Chem 7: 03/01/21 05:03 03/01/21 05:03 Labs: Abnormal Lab Results - Last 24 Hours (Table) 02/28/21 02/28/21 03/01/21 Range/Units : 06: 05:03 RBC 2.42 L 2.34 L (3.80-5.40) m/uL Hgb 9.1 L 9.0 L (11.4-16.0) gm/dL Hct 28.8 L 27.4 L (34.0-46.0) % MCV 119.4 H 117.4 H (80.0-100.0) fL MCH 37.5 H 38.3 H (25.0-35.0) pg Plt Count 132 L (150-450) k/uL Myelocytes # (Manual) 0.06 H (0) k/uL Macrocytosis Marked A Marked A Sodium (137-145) mmol/L Potassium (3.5-5.1) mmol/L Chloride 109 H (98-107) mmol/L BUN <2 L (7-17) mg/dL Calcium (8.4-10.2) mg/dL Magnesium 1.4 L (1.6-2.3) mg/dL Total Bilirubin 9.3 H (0.2-1.3) mg/dL AST 252 H (14-36) U/L ALT 76 H (4-34) U/L Alkaline Phosphatase 200 H (38-126) U/L Ammonia (<30) umol/L Total Protein 6.0 L (6.3-8.2) g/dL Albumin 2.9 L (3.5-5.0) g/dL 03/01/21 03/01/21 Range/Units 05:03 05:03 RBC (3.80-5.40) m/uL Hgb (11.4-16.0) gm/dL Hct (34.0-46.0) % MCV (80.0-100.0) fL MCH (25.0-35.0) pg Plt Count (150-450) k/uL Myelocytes # (Manual) (0) k/uL Macrocytosis Sodium 136 L (137-145) mmol/L Potassium 3.4 L (3.5-5.1) mmol/L Chloride (98-107) mmol/L BUN <2 L (7-17) mg/dL Calcium 8.3 L (8.4-10.2) mg/dL Magnesium (1.6-2.3) mg/dL Total Bilirubin 9.0 H (0.2-1.3) mg/dL AST 195 H (14-36) U/L ALT 64 H (4-34) U/L Alkaline Phosphatase 195 H (38-126) U/L Ammonia 40 H (<30) umol/L Total Protein 6.0 L (6.3-8.2) g/dL Albumin 2.8 L (3.5-5.0) g/dL Microbiology - Last 24 Hours (Table) 02/26/21 09:18 Blood Culture - Preliminary Blood No Growth after 48 hours 02/26/21 09:12 Blood Culture - Preliminary Blood No Growth after 48 hours Assessment and Plan (1) Alcoholic hepatitis Narrative/Plan: 40-year-old female with known history of heavy alcohol abuse for the last 2-3 years presented to the hospital with nausea, vomiting, not feeling well, and reportedly had a seizure at home. She was noted to have elevated LFTs, has a history of alcoholic cirrhosis of the liver. On admission she was noted to be jaundiced and confused. No complaints of abdominal pain, nausea, or vomiting. States this was her first seizure. She follows with Dr. Moise for alcoholic cirrhosis of the liver and states she is on lactulose at home. She is still drinking 1 pint a day. Denies any previous paracentesis. Labs include a repeat CT in 0.2, hemoglobin 10.8, hematocrit 32.6, platelet count 167, INR 1.3, ammonia 30, total bilirubin 10.3, alkaline phosphatase 279, AST 467, ALT 106. Elevated liver function tests and jaundice, all consistent with acute alcoholic hepatitis superimposed on alcoholic cirrhosis of the liver. Current Visit: Yes Status: Acute Code(s): K70.10 - ALCOHOLIC HEPATITIS WITHOUT ASCITES SNOMED Code(s): 144867328 (2) Liver cirrhosis Current Visit: Yes Status: Acute Code(s): K74.60 - UNSPECIFIED CIRRHOSIS OF LIVER SNOMED Code(s): 40832474 (3) Hepatic encephalopathy Current Visit: Yes Status: Acute Code(s): K72.90 - HEPATIC FAILURE, UNSPECIFIED WITHOUT COMA SNOMED Code(s): 96390566 (4) Alcohol abuse Current Visit: Yes Status: Acute Code(s): F10.10 - ALCOHOL ABUSE, UNCOMPLICATED SNOMED Code(s): 55628117 (5) Hypokalemia Narrative/Plan: Replace electrolytes Current Visit: No Status: Acute Code(s): E87.6 - HYPOKALEMIA SNOMED Code(s): 92038616 Plan: 1. Continue symptomatic and supportive care 2. Continue to monitor closely for alcohol withdrawal 3. Monitor labs closely 4. Continue lactulose, will add Xifaxan 550 mg twice a day 5. Liver ultrasound ordered and reviewed 6. Acute hepatitis panel ordered 7. Recommend alcohol cessation 8. Seizure precautions Thank you for this consultation, we will continue to follow Dr. Rasheeda Moise I agree with the dictator's note, documented as a scribe by Kayla Greene.
[2021-03-01] MEDS: levETIRAcetam IV 1,000 MG in SALINE 1 100ML.BAG IVPB SCH ×2 (13:43→23:33)
[2021-03-01 15:15] VITALS: BMI 24.4
--- NOTE | 2021-03-01 17:21 | P.PN ---
Subjective Progress Note Date: 03/01/21 Principal diagnosis: New onset seizures, cirrhosis, alcoholic liver disease 02/28/2021. Patient minutes 02/26/2021 for alcoholic liver disease, seizures. Patient has long-standing history with alcohol abuse with last admission in August 2020. She drinking a pint of rum a day and had recently stopped all consumption. Currently she is sitting up in bed tearful when discussing her health. She denies any chest pain pressure, abdominal pain, nausea or diarrhea, or difficulty breathing at this time. She is currently on room air with stable vital signs. Temperature of 98.1 orally, pulse rate of 110, respiratory rate of 18, maintaining oxygen saturation 97%, blood pressure 95/66. She is noted to have tremors in her hands and shaking of her head, but seems to be controllable when she is attempting to do tasks. No new labs noted for today with the most recent set me in 02/27/2021 CBC resulted in a hemoglobin of 9.1, hematocrit of 28.1, platelet count of 99. Chemistry reveals sodium 138, potassium 3.5, BUN less than 2, creatinine of 0.65, alk phos 1.3, magnesium 1.7, AST of 331, ELT of 84, alk phos 195, protein 6.2, albumin of 3.0. Ammonia level was noted for today of 20. Patient is maintained on CIWA protocol with the last score being 1. Most recent dose of Ativan was at 2331 on 02/27/2021. 03/01/2021 patient sat up in bed with family at bedside, denies chest pain or pressure, shortness of breath or difficulty breathing, nausea or vomiting. Patient states she's had numerous liquid bowel movements through the day and she was restarted on lactulose due to rising ammonia level. Most recent set of vital signs she is afebrile 98.2 orally, pulse rate of 97, respiratory rate of 18, she maintains 97% oxygenation on room air, and a blood pressure 100/63. Most recent set of labs from this morning white blood cell count of 6, hemoglobin of 9.0, hematocrit of 27.4, platelet count of 169. Chemistry reveals sodium 136, potassium 3.4, BUN of 7, creatinine of less than 2, GFR is greater then 90, AST is down trending to 195 and ELT downtrending as well to 64, alk phos maintains around 195, her ammonia level elevated to 40 with a total protein of 6.0 and albumin of 2.8. There was a dietary consult order from place yesterday patient states she spoke with him today but have not seen their recommendations at this time. Objective - Vital Signs Vital signs: Vital Signs Temp 98.2 F 03/01/21 12:01 Pulse 97 03/01/21 12:01 Resp 18 03/01/21 12:01 BP 100/63 03/01/21 12:01 Pulse Ox 97 03/01/21 12:01 Intake & Output 02/28/21 03/01/21 03/01/21 18:59 06:59 18:59 Intake Total 151.776 4732.2 Balance 190.164 8344.2 Weight 58 kg 60.6 kg Intake: Intake, IV Titration 587.543 1280.2 Amount Mvi, Adult No.4 with Vit 950.459 0668.2 K 10 ml Thiamine 100 mg Folic Acid 1 mg In 0.9% NaCl with KCl 20 Meq/l 1, 000 ml @ 100 mls/hr IV . BY DURATION [facility] Rx#: [id number] Oral 480 Other: Voiding Method Bedside Commode Toilet Toilet # Voids 2 5 # Bowel Movements 4 - Exam GENERAL: Jaundiced, cachectic and in no acute distress, alert and responsive. HEAD: Atraumatic, normocephalic. EYES: Pupils equal round and reactive to light, extraocular movements intact, sclera icteric, conjunctiva are normal. ENT:nares patent, oropharynx clear without exudates. Moist mucous membranes. NECK: Normal range of motion, supple without lymphadenopathy or JVD, no thyromegaly LUNGS: Breath sounds clear to auscultation bilaterally and equal. No wheezes rales or rhonchi. HEART: Regular rate and rhythm without murmurs, rubs or gallops.S1S2 Normal ABDOMEN: Soft, nontender, normoactive bowel sounds. Hepatosplenomegaly, No guarding, no rebound. No masses appreciated. EXTREMITIES: Normal range of motion, no pitting or edema. No clubbing or cyanosis. NEUROLOGICAL: Cranial nerves II through XII grossly intact. Normal speech, tremors present, alert and oriented 3. PSYCH: Mood upbeat, normal affect. SKIN: Warm, Dry, normal turgor, no rashes or lesions noted. - Labs CBC & Chem 7: 03/01/21 05:03 03/01/21 05:03 Labs: Abnormal Lab Results - Last 24 Hours (Table) 03/01/21 03/01/21 03/01/21 Range/Units 05:03 05:03 05:03 RBC 2.34 L (3.80-5.40) m/uL Hgb 9.0 L (11.4-16.0) gm/dL Hct 27.4 L (34.0-46.0) % MCV 117.4 H (80.0-100.0) fL MCH 38.3 H (25.0-35.0) pg Macrocytosis Marked A Sodium 136 L (137-145) mmol/L Potassium 3.4 L (3.5-5.1) mmol/L BUN <2 L (7-17) mg/dL Calcium 8.3 L (8.4-10.2) mg/dL Total Bilirubin 9.0 H (0.2-1.3) mg/dL AST 195 H (14-36) U/L ALT 64 H (4-34) U/L Alkaline Phosphatase 195 H (38-126) U/L Ammonia 40 H (<30) umol/L Total Protein 6.0 L (6.3-8.2) g/dL Albumin 2.8 L (3.5-5.0) g/dL Microbiology - Last 24 Hours (Table) 02/26/21 09:12 Blood Culture - Preliminary Blood No Growth after 72 hours 02/26/21 09:18 Blood Culture - Preliminary Blood No Growth after 72 hours Assessment and Plan (1) Depression Current Visit: Yes Status: Acute Code(s): F32.9 - MAJOR DEPRESSIVE DISORDER, SINGLE EPISODE, UNSPECIFIED SNOMED Code(s): 11849312 (2) Alcohol abuse Current Visit: Yes Status: Acute Code(s): F10.10 - ALCOHOL ABUSE, UNCOMPLICATED SNOMED Code(s): 80451339 (3) Alcohol withdrawal syndrome Current Visit: Yes Status: Acute Code(s): F10.239 - ALCOHOL DEPENDENCE WITH WITHDRAWAL, UNSPECIFIED SNOMED Code(s): 542306426 (4) Alcoholic hepatitis Current Visit: Yes Status: Acute Code(s): K70.10 - ALCOHOLIC HEPATITIS WITHOUT ASCITES SNOMED Code(s): 807044268 (5) Altered mental status Current Visit: Yes Status: Acute Code(s): R41.82 - ALTERED MENTAL STATUS, UNSPECIFIED SNOMED Code(s): 067575193 (6) Hepatic encephalopathy Current Visit: Yes Status: Acute Code(s): K72.90 - HEPATIC FAILURE, UNSPECIFIED WITHOUT COMA SNOMED Code(s): 80042641 (7) Hypomagnesemia Current Visit: Yes Status: Acute Code(s): E83.42 - HYPOMAGNESEMIA SNOMED Code(s): 225704000 (8) Liver cirrhosis Current Visit: Yes Status: Acute Code(s): K74.60 - UNSPECIFIED CIRRHOSIS OF LIVER SNOMED Code(s): 48074039 (9) New onset seizure Current Visit: Yes Status: Acute Code(s): R56.9 - UNSPECIFIED CONVULSIONS SNOMED Code(s): 80521184 (10) Hyperammonemia Current Visit: No Status: Acute Code(s): E72.20 - DISORDER OF UREA CYCLE METABOLISM, UNSPECIFIED SNOMED Code(s): 1414626 (11) Hypokalemia Current Visit: No Status: Acute Code(s): E87.6 - HYPOKALEMIA SNOMED Code(s): 39996756 (12) Hypothyroid Current Visit: No Status: Acute Code(s): E03.9 - HYPOTHYROIDISM, UNSPECIFIED SNOMED Code(s): 12504113 (13) Lactic acidosis Current Visit: No Status: Acute Code(s): E87.2 - ACIDOSIS SNOMED Code(s): 00310114 Plan: Current medication regimen [facility] protocol Substance abuse counseling Nutritional assessment, awaiting recommendations Continue with parental vitamin supplementation will convert to oral at a later date Electrolyte replacement protocol Protonix for GI prophylaxis Lactulose for rising ammonia levels Pain controlled with morphine for severe pain We'll continue to monitor and treat and vitals and lab work accordingly We'll continue to follow closely and reassess again tomorrow Time with Patient: Greater than 30
[2021-03-01] MEDS: ONDANSETRON 4 MG/2 ML VIAL IVP PRN (21:29)
[2021-03-02 05:10] VITALS: PULSE 90
[2021-03-02] MEDS: LEVOTHYROXINE 100 MCG TAB PO SCH (05:35)
[2021-03-02] MEDS: ONDANSETRON 4 MG/2 ML VIAL IVP PRN (05:44)
[2021-03-02 06:28] LABS: HCT 27.6 % (34.0-46.0); HGB 8.6 gm/dL (11.4-16.0); Hypochromasia Slight; MCH 37.2 pg (25.0-35.0); MCHC 31.2 g/dL (31.0-37.0); MCV 119.1 fL (80.0-100.0); Mean Platelet Volume 8.9; Platelet Count 183 k/uL (150-450); RBC 2.31 m/uL (3.80-5.40); RDW 15.8 % (11.5-15.5); WBC 6.2 k/uL (3.8-10.6)
[2021-03-02 06:35] LABS: Macrocytosis Marked
[2021-03-02] MEDS: PANTOPRAZOLE 40 MG/10 ML VIAL IV SCH (08:40)
[2021-03-02] MEDS: THIAMINE 100 MG TAB PO SCH (08:40)
[2021-03-02] MEDS: LACTULOSE 20 GM/30 ML CUP PO SCH ×2 (08:40→12:26)
[2021-03-02] MEDS: RIFAXIMIN 550 MG TABLET PO SCH (08:41)
[2021-03-02 09:14] LABS: INR 1.1 (0.90-1.11); Prothrombin Time 11.9 sec (9.9-11.9)
--- NOTE | 2021-03-02 10:44 | P.PN ---
Subjective Progress Note Date: 03/02/21 Principal diagnosis: Alcoholic hepatitis, : Alcoholic cirrhosis, encephalopathy The patient seen and examined lying in bed. States she had some nausea through the night and this morning, denies any vomiting or abdominal pain. LFTs continue to trend down, ammonia decreased to 23 this morning. INR stable at 1.1, hemoglobin 8.6, platelets increased to 183,000. She states she is having greater than 3-4 bowel movements a day, denies any blood or black stool. Denies any further seizure-like activity, still had some shakes. Objective - Vital Signs Vital signs: Vital Signs Temp 99.2 F 03/02/21 05:00 Pulse 90 03/02/21 05:00 Resp 18 03/02/21 05:00 BP 104/64 03/02/21 05:00 Pulse Ox 99 03/02/21 05:00 Intake & Output 03/01/21 03/02/21 03/02/21 18:59 06:59 18:59 Intake Total 2691.2 100 Balance 2691.2 100 Weight 60.6 kg 58.5 kg Intake: Intake, IV Titration 2010.2 Amount 0.9% NaCl with KCl 20 Meq 1000 /l 1,000 ml @ 100 mls/hr IV .BY DURATION [facility] Rx#: [id number] Mvi, Adult No.4 with Vit 1011.2 K 10 ml Thiamine 100 mg Folic Acid 1 mg In 0.9% NaCl with KCl 20 Meq/l 1, 000 ml @ 100 mls/hr IV . BY DURATION [facility] Rx#: [id number] Oral 680 100 Other: Voiding Method Toilet Toilet # Voids 2 1 - Exam General appearance: The patient is alert, oriented, appears in no acute distress. HET: Head is normocephalic and atraumatic. Conjunctiva pink. Sclera icteric. Neck: Supple without lymphadenopathy. Abdomen: Soft, nontender, nondistended with bowel sounds. No guarding or rigidity. Extremities: Normal skin color and turgor. No pedal edema Skin: No rashes, jaundice Neurological: No focal deficits. Alert and oriented 3. - Labs CBC & Chem 7: 03/02/21 05:11 03/02/21 05:11 Labs: Abnormal Lab Results - Last 24 Hours (Table) 03/02/21 Range/Units 05:11 RBC 2.31 L (3.80-5.40) m/uL Hgb 8.6 L (11.4-16.0) gm/dL Hct 27.6 L (34.0-46.0) % MCV 119.1 H (80.0-100.0) fL MCH 37.2 H (25.0-35.0) pg RDW 15.8 H (11.5-15.5) % Macrocytosis Marked A Microbiology - Last 24 Hours (Table) 02/26/21 09:12 Blood Culture - Preliminary Blood No Growth after 72 hours 02/26/21 09:18 Blood Culture - Preliminary Blood No Growth after 72 hours Assessment and Plan (1) Alcoholic hepatitis Narrative/Plan: 40-year-old female with known history of heavy alcohol abuse for the last 2-3 years presented to the hospital with nausea, vomiting, not feeling well, and reportedly had a seizure at home. She was noted to have elevated LFTs, has a history of alcoholic cirrhosis of the liver. On admission she was noted to be jaundiced and confused. No complaints of abdominal pain, nausea, or vomiting. States this was her first seizure. She follows with Dr. Moise for alcoholic cirrhosis of the liver and states she is on lactulose at home. She is still drinking 1 pint a day. Denies any previous paracentesis. Initial labs 10.2, hemoglobin 10.8, hematocrit 32.6, platelet count 167, INR 1.3, ammonia 30, total bilirubin 10.3, alkaline phosphatase 279, AST 467, ALT 106. Elevated liver func tion tests and jaundice, all consistent with acute alcoholic hepatitis superimposed on alcoholic cirrhosis of the liver. Liver enzymes continued to trend down. Withdrawal symptoms improving. Patient is alert and oriented 3. Current Visit: Yes Status: Acute Code(s): K70.10 - ALCOHOLIC HEPATITIS WITHOUT ASCITES SNOMED Code(s): 237243561 (2) Liver cirrhosis Current Visit: Yes Status: Acute Code(s): K74.60 - UNSPECIFIED CIRRHOSIS OF LIVER SNOMED Code(s): 48727963 (3) Hepatic encephalopathy Current Visit: Yes Status: Acute Code(s): K72.90 - HEPATIC FAILURE, UNSPECIF IED WITHOUT COMA SNOMED Code(s): 27832812 (4) Alcohol abuse Current Visit: Yes Status: Acute Code(s): F10.10 - ALCOHOL ABUSE, UNCOMPLICATED SNOMED Code(s): 73665310 (5) Hypokalemia Narrative/Plan: Replace electrolytes Current Visit: No Status: Acute Code(s): E87.6 - HYPOKALEMIA SNOMED Code(s): 47875731 Plan: 1. Continue symptomatic and supportive care 2. Continue to monitor closely for alcohol withdrawal 3. Monitor labs closely 4. Continue lactulose and Xifaxan 550 mg twice a day. Titrate lactulose to have 3-4 BM a day, may hold additional doses. 5. Liver ultrasound ordered and reviewed 6. Acute hepatitis panel ordered 7. Recommend alcohol cessation/rehab 8. Discussed importance of outpatient follow up with gastroenterology and complete alcohol cessation. Follow up in one week. Thank you for this consultation, we will continue to follow. Dr. Rasheeda Moise I agree with the dictator's note, documented as a scribe by Kalya Greene.
[2021-03-02 12:05] VITALS: BP 97/65; RESP 14; TEMP 98.4
[2021-03-02] MEDS: levETIRAcetam IV 1,000 MG in SALINE 1 100ML.BAG IVPB SCH (13:31)
[2021-03-02] MEDS ORDERED: POTASSIUM CHLORIDE ER 20 MEQ TAB.ER PO STA (13:48)
[2021-03-02] MEDS ORDERED: MAGNESIUM OXIDE 400 MG TAB PO STA (13:49)
[2021-03-02 14:14] LABS: ALT 64 U/L (8-44); AST 152 U/L (13-35); African American GFR (CKD) 121.5 (60.0-200.0); Albumin/Globulin Ratio 1.04 (1.60-3.17); Alkaline Phosphatase 177 U/L (41-126); Blood Urea Nitrogen <5.0 mg/dL (9.0-27.0); Calcium 8.4 mg/dL (8.7-10.3); Carbon Dioxide 25.9 mmol/L (21.6-31.8); Chloride 108 mmol/L (96-109); Globulin 2.6 g/dL (1.6-3.3); Glucose 95 mg/dL (70-110); Non-African American GFR(CKD) 104.8 (60.0-200.0); Potassium 3.5 mmol/L (3.5-5.5); Sodium 137 mmol/L (135-145); Total Bilirubin 9.1 mg/dL (0.3-1.2); Total Protein 5.3 g/dL (6.2-8.2)
--- NOTE | 2021-03-02 15:53 | P.DS ---
Providers Date of admission: 02/26/21 01:00 Expected date of discharge: 03/02/21 Attending physician: Matt Ch Consults: 02/26/21 08:52 Consult Physician Routine Consulting Provider: Shasta Moise Consult Reason/Comments: liver failure Do you want consulting provider notified?: Yes 02/26/21 09:11 Consult Physician Routine Consulting Provider: Oc Burton Consult Reason/Comments: depression Do you want consulting provider notified?: Yes Primary care physician: [facility] Hospital Course: Final Diagnoses: Assessment: New-onset seizure secondary to alcohol abuse, neurology workup completed on prior admission August 2020. Chronic Alcohol abuse with alcohol withdrawal syndrome ,drinks 1 pint of rum daily, reports recently stopped Altered mental status secondary to Acute metabolic, toxic and hepatic encephalopathy. Alcoholic hepatitis Depression lactic acidosis, sepsis ruled out Hyperammonemia, resolved Hypokalemia, resolved Hypomagnesemia, resolved Hyponatremia, resolved Hyperbilirubinemia with jaundice Alcoholic Liver cirrhosis Thrombocytopenia Hypercoagulopathy Chronic anemia Hypothyroidism Hospital course:This is a 50-year-old female with history of chronic alcohol abuse/dependence-last admission August 2020, drinks a pint of rum every day ,depression, hypothyroidism, alcoholic liver disease, alcoholic cirrhosis, covid 08/2020 and multiple other medical issues, brought into the ER by EMS. ER reports stated she had worsening yellow skin and eyes, persistent nausea vomiting, and last night he witnessed her seizing, thus called EMS. Denies prior history of seizures. T-max 100.4, normal WBC. Patient had quit drinking in September, resumed secondary to stress. Patient denies any further nausea vomiting or abdominal pain. She was initially on lactulose twice a day at home. Upon asking if she had been taking it ,stated she took it yesterday.lactic acid 3.9.Hemoglobin 10.8, hematocrit 32.6, platelets 216,000, INR 1.3, sodium 132, potassium 3.1, magnesium 1.4, troponin pending, total bilirubin 10.3, alkaline phosphatase 279, AST 467, ALT 106, ammonia level 30. CIWA score 12 @ 0400. Toxicology screen reporting salicylates, acetaminophen, less than 10 serum alcohol. Coronavirus not detected. Denies any chest pain, palpitations or shortness of breath. Keppra initiated in the ER, no further seizure activity. Maintained on lactulose, CIWA protocol with significant clinical improvement. Evaluated and cleared by psychiatry. Patient had a isolated seizure prior to admission. Denies any further seizure-like activity. Ammonia 23 this morning. INR 1.1. Patient is partially detoxed. Strongly encouraged rehab for alcohol dependence at discharge, discussed with both patient and at bedside, in addition to alcohol abstinence. Patient states currently participates in [facility], but that it is a financial strain. Discussed DC med regimen of Antabuse or Vivitrol; patient chose Antabuse.Patient will be discharged home in a stable condition with guarded prognosis today, pending final DC recommendations and clearance from GI. The impression and plan of care has been dictated as directed. : I performed a history and examination of this patient, discussed the same with the dictator. I agree with the dictator's note ,documented as a scribe. Any additional findings or plans will be noted. Patient Condition at Discharge: Stable Plan - Discharge Summary Discharge Rx Participant: No New Discharge Prescriptions: New Disulfiram [Antabuse] 500 mg PO DAILY #30 tablet Rifaximin [Xifaxan] 550 mg PO BID #60 tablet Folic Acid 1 mg PO DAILY #30 tablet Thiamine [Vitamin B-1] 100 mg PO DAILY tab Continue Levothyroxine Sodium [Synthroid] 100 mg PO DAILY Omeprazole [PriLOSEC] 40 mg PO DAILY 30 Days #30 cap Lactulose 30 gm PO TID Discharge Medication List Levothyroxine Sodium [Synthroid] 100 mg PO DAILY 12/24/14 [History] Lactulose 30 gm PO TID 02/26/21 [History] Disulfiram [Antabuse] 500 mg PO DAILY #30 tablet 03/02/21 [Rx] Folic Acid 1 mg PO DAILY #30 tablet 03/02/21 [Rx] Omeprazole [PriLOSEC] 40 mg PO DAILY 30 Days #30 cap 03/02/21 [Rx] Rifaximin [Xifaxan] 550 mg PO BID #60 tablet 03/02/21 [Rx] Thiamine [Vitamin B-1] 100 mg PO DAILY tab 03/02/21 [Rx] Follow up Appointment(s)/Referral(s): Matt Ch Jr, DO [Primary Care Provider] - 03/05/21 2:00 pm Sandy,Slime A, NPC [Nurse Practitioner] - 04/12/21 12:00 pm (With .) Patient Instructions/Handouts: Seizure/Epilepsy Discharge Instructions & Follow-Up, Omeprazole (By mouth), Disulfiram (By mouth), Folic Acid (By mouth), Rifaximin (By mouth) Activity/Diet/Wound Care/Special Instructions: CMP pending. No etoh. Rehab resources as per [facility]. [facility]
== END 2021-03-02 16:31 | disposition home or self-care (01) | DRG 100 ==
LOC: EC 22:27 → 5NMEDONC 02-26 01:00 → 3SCARD 02-26 01:44 → 5NMEDONC 02-28 18:13
PROVIDERS: ADMIT Family Medicine; ATTEND Family Medicine
DX: G40.909 Epilepsy, unspecified, not intractable, without status epilepticus (principal); G92 Toxic encephalopathy; E87.1 Hypo-osmolality and hyponatremia; E87.2 Acidosis; F10.239 Alcohol dependence with withdrawal, unspecified; D64.9 Anemia, unspecified; D69.6 Thrombocytopenia, unspecified; E03.9 Hypothyroidism, unspecified; E83.42 Hypomagnesemia; E87.6 Hypokalemia; F32.9 Major depressive disorder, single episode, unspecified; I10 Essential (primary) hypertension; K70.10 Alcoholic hepatitis without ascites; K70.30 Alcoholic cirrhosis of liver without ascites; Z86.16 Personal history of COVID-19; K72.90 Hepatic failure, unspecified without coma; Z20.822 Contact with and (suspected) exposure to COVID-19; Z82.49 Family history of ischemic heart disease and other diseases of the circulatory system; Z83.3 Family history of diabetes mellitus; Z87.891 Personal history of nicotine dependence; Z90.710 Acquired absence of both cervix and uterus
CPT/HCPCS: 36415; 71046; 76705; 80053; 80074; 80143; 80179; 80306; 80320; 81003; 82140; 82533; 83605; 83690; 83735; 84100; 84145; 84484; 85025; 85027; 85610; 85730; 87040; 87635; 96365; 96366; 96367; 96375; 99291

== ENCOUNTER 2022-05-08 10:50 | Emergency (ER) | payer BC ==
[2022-05-08 11:04] VITALS: TEMP 98
--- NOTE | 2022-05-08 11:40 | ED ---
General Adult HPI - General Chief complaint: Altered Mental Status Stated complaint: ETOH withdrawals, weakness Time Seen by Provider: 05/08/22 11:10 Source: patient Mode of arrival: wheelchair Limitations: no limitations - History of Present Illness Initial comments: Dictation was produced using [employer] ([email or web address]) dictation software. please excuse any grammatical, word or spelling errors. Chief Complaint: 52-year-old female presents with for jaundice and altered mental status History of Present Illness: Patient's 52-year-old female presents emergency department for jaundice and altered mental status. Patient has history of liver failure. He has history of cirrhosis. She has been having slowed responses and lethargy for the last 2-3 days. Patient this morning became severely jaundice probably has reverted to the emergency department today. Patient unable to provide history of present illness at this time. Patient was a sees drinking alcohol 36 hours ago. The ROS documented in this emergency department record has been reviewed and confirmed by me. Those systems with pertinent positive or negative responses have been documented in the HPI. All other systems are other negative and/or noncontributory. PHYSICAL EXAM: General Impression: Anal 1 out of 4, slowed responses, jaundice HEENT: Normocephalic atraumatic, extra-ocular movements intact, pupils equal and reactive to light bilaterally, mucous membranes moist. Cardiovascular: Heart regular rate and rhythm Chest: no retractions, no tachypnea Abdomen: abdomen soft, non-tender, non-distended, no organomegaly, positive fluid wave Musculoskeletal: Pulses present and equal in all extremities, no peripheral edema Motor: no focal deficits noted Neurological: CN II-XII grossly intact, does not follow commands Skin: Severely jaundice Psych: Normal affect and mood ED course: 52-year-old female presents emergency department for altered mental status and worsening jaundice. Vital signs upon arrival shows heart rate of 118, rest of vital signs within acceptable limits. Clinical presentation consistent with hepatic encephalopathy and liver failure. Laboratory evaluation obtained. 26.8 leukocytosis.. Suspicious for acute infectious process. I will see patient does not have any localizing symptoms and there isn't any confirmation of bacterial source. Nonetheless patient given broad-spectrum antibiotics. Liver failure with INR 4.3. Potassium 1.8, sodium 120. Lactic acidosis of 5.2 likely secondary to decreased ability for lactate clearance. Magnesium 1.1. Bilirubin 15.5. Elevated liver enzymes. Alcohol is negative. Family requested trouble on for transfer. Spoke with [facility] transfer line who felt patient was better served being transferred to [facility] due to their hepatology program. Spoke with [facility], Dr. Heller was went except patient's care for urinary ER transfer. Patient's electrolytes were beginning to be replaced with parenteral infusion. Patient given broad-spectrum antibiotics. Family is agreeable to disposition. EKG interpretation: Ventricular rate 112, sinus tachycardia,. 190, Q 91, QTC 320, interpretation limited by artifact however appears to be mostly comparable to 02/26/2021. No TN prolongation, no QTC prolongation, no ST or T-wave changes noted. . Overall, this EKG is unremarkable - Related Data Home Medications Medication Instructions Recorded Confirmed Levothyroxine Sodium [Synthroid] 100 mg PO DAILY 12/24/14 05/08/22 Previous Rx's Medication Instructions Recorded Omeprazole [PriLOSEC] 40 mg PO DAILY 30 Days #30 cap 03/02/21 Allergies Allergy/AdvReac Type Severity Reaction Status Date / Time No Known Allergies Allergy Verified 05/08/22 13:06 Review of Systems ROS Statement: Those systems with pertinent positive or pertinent negative responses have been documented in the HPI. ROS Other: All systems not noted in ROS Statement are negative. Past Medical History Past Medical History: Hypertension, Liver Disease, Thyroid Disorder History of Any Multi-Drug Resistant Organisms: None Reported Past Surgical History: Hysterectomy Past Anesthesia/Blood Transfusion Reactions: No Reported Reaction Past Psychological History: Depression Smoking Status: Former smoker Past Alcohol Use History: Abuse, Daily, Heavy Past Drug Use History: None Reported - Past Family History Father Family Medical History: Diabetes Mellitus, Hypertension Additional Family Medical History / Comment(s): ETOH Mother Family Medical History: No Reported History General Exam Limitations: no limitations Course Vital Signs 05/08/22 05/08/22 05/08/22 10:59 11:50 12:00 Temperature 98 F Pulse Rate 118 H 112 H 109 H Respiratory 16 24 24 Rate Blood Pressure 103/67 103/65 103/65 O2 Sat by Pulse 100 100 100 Oximetry 05/08/22 12:10 Temperature Pulse Rate 110 H Respiratory 24 Rate Blood Pressure 99/75 O2 Sat by Pulse 99 Oximetry Medical Decision Making - Lab Data Result diagrams: 05/08/22 11:34 05/08/22 11:34 Lab Results 05/08/22 05/08/22 05/08/22 Range/Units 11:34 11:34 11:34 WBC 26.8 H (3.8-10.6) k/uL RBC 3.25 L (3.80-5.40) m/uL Hgb 11.4 (11.4-16.0) gm/dL Hct 34.9 (34.0-46.0) % MCV 107.3 H (80.0-100.0) fL MCH 35.2 H (25.0-35.0) pg MCHC 32.8 (31.0-37.0) g/dL RDW 14.5 (11.5-15.5) % Plt Count 333 (150-450) k/uL MPV 8.5 Neutrophils % 93 % Lymphocytes % 2 % Monocytes % 4 % Eosinophils % 0 % Basophils % 0 % Neutrophils # 24.9 H (1.3-7.7) k/uL Lymphocytes # 0.6 L (1.0-4.8) k/uL Monocytes # 1.1 H (0-1.0) k/uL Eosinophils # 0.0 (0-0.7) k/uL Basophils # 0.0 (0-0.2) k/uL Macrocytosis Moderate PT 42.9 H (9.0-12.0) sec INR 4.3 H (<1.2) APTT 37.0 H (22.0-30.0) sec Sodium 120 L (137-145) mmol/L Potassium 1.8 L* (3.5-5.1) mmol/L Chloride 75 L (98-107) mmol/L Carbon Dioxide 27 (22-30) mmol/L Anion Gap 18 mmol/L BUN 3 L (7-17) mg/dL Creatinine 0.76 (0.52-1.04) mg/dL Est GFR (CKD-EPI)AfAm >90 (>60 ml/min/1.73 sqM) Est GFR (CKD-EPI)NonAf 90 (>60 ml/min/1.73 sqM) Glucose 187 H (74-99) mg/dL Plasma Lactic Acid Bull (0.7-2.0) mmol/L Calcium 7.7 L (8.4-10.2) mg/dL Magnesium 1.1 L (1.6-2.3) mg/dL Total Bilirubin 15.5 H* (0.2-1.3) mg/dL Conjugated Bilirubin 7.9 H (0.0-0.3) mg/dL Unconjugated Bilirubin 2.6 H (0.0-1.1) mg/dL Delta Bilirubin 5.0 H (0.0-0.2) mg/dL AST 154 H (14-36) U/L ALT 60 H (4-34) U/L Alkaline Phosphatase 355 H (38-126) U/L Ammonia (<30) umol/L Total Protein 6.9 (6.3-8.2) g/dL Albumin 3.2 L (3.5-5.0) g/dL Serum Alcohol <10 mg/dL 05/08/22 Range/Units 11:34 WBC (3.8-10.6) k/uL RBC (3.80-5.40) m/uL Hgb (11.4-16.0) gm/dL Hct (34.0-46.0) % MCV (80.0-100.0) fL MCH (25.0-35.0) pg MCHC (31.0-37.0) g/dL RDW (11.5-15.5) % Plt Count (150-450) k/uL MPV Neutrophils % % Lymphocytes % % Monocytes % % Eosinophils % % Basophils % % Neutrophils # (1.3-7.7) k/uL Lymphocytes # (1.0-4.8) k/uL Monocytes # (0-1.0) k/uL Eosinophils # (0-0.7) k/uL Basophils # (0-0.2) k/uL Macrocytosis PT (9.0-12.0) sec INR (<1.2) APTT (22.0-30.0) sec Sodium (137-145) mmol/L Potassium (3.5-5.1) mmol/L Chloride (98-107) mmol/L Carbon Dioxide (22-30) mmol/L Anion Gap mmol/L BUN (7-17) mg/dL Creatinine (0.52-1.04) mg/dL Est GFR (CKD-EPI)AfAm (>60 ml/min/1.73 sqM) Est GFR (CKD-EPI)NonAf (>60 ml/min/1.73 sqM) Glucose (74-99) mg/dL Plasma Lactic Acid Bull 5.2 H* (0.7-2.0) mmol/L Calcium (8.4-10.2) mg/dL Magnesium (1.6-2.3) mg/dL Total Bilirubin (0.2-1.3) mg/dL Conjugated Bilirubin (0.0-0.3) mg/dL Unconjugated Bilirubin (0.0-1.1) mg/dL Delta Bilirubin (0.0-0.2) mg/dL AST (14-36) U/L ALT (4-34) U/L Alkaline Phosphatase (38-126) U/L Ammonia 123 H (<30) umol/L Total Protein (6.3-8.2) g/dL Albumin (3.5-5.0) g/dL Serum Alcohol mg/dL Critical Care Time Critical Care Time: Yes Total Critical Care Time: 33 Disposition Clinical Impression: Liver failure, Hypokalemia Disposition: OTHER INSTITUTION NOT DEFINED Condition: Critical Referrals: Matt Ch Jr, DO [Primary Care Provider] - 1-2 days - Out of Hospital Transfer - Req. Specs Out of Hospital Transfer - Requested Specifics: Other Emergency Center ([facility])
[2022-05-08 12:26] LABS: Basophils % (A) 0 %; Eosinophils % (A) 0 %; HCT 34.9 % (34.0-46.0); HGB 11.4 gm/dL (11.4-16.0); Lactic Acid, Venous 5.2 mmol/L (0.7-2.0); Lymphocytes # (A) 0.6 k/uL (1.0-4.8); Lymphocytes % (A) 2 %; MCH 35.2 pg (25.0-35.0); MCHC 32.8 g/dL (31.0-37.0); MCV 107.3 fL (80.0-100.0); Macrocytosis Moderate; Mean Platelet Volume 8.5; Monocytes # (A) 1.1 k/uL (0-1.0); Monocytes % (A) 4 %; Neutrophils # (A) 24.9 k/uL (1.3-7.7); Neutrophils % (A) 93 %; Platelet Count 333 k/uL (150-450); RBC 3.25 m/uL (3.80-5.40); RDW 14.5 % (11.5-15.5); WBC 26.8 k/uL (3.8-10.6)
[2022-05-08 12:29] LABS: AST 154 U/L (14-36); African American GFR (CKD) >90 (>60 ml/min/1.73 sqM); Albumin 3.2 g/dL (3.5-5.0); Alcohol <10 mg/dL; Alkaline Phosphatase 355 U/L (38-126); Anion Gap 18 mmol/L; Bilirubin, Conjugated 7.9 mg/dL (0.0-0.3); Bilirubin,Unconjugated 2.6 mg/dL (0.0-1.1); Blood Urea Nitrogen 3 mg/dL (7-17); Calcium 7.7 mg/dL (8.4-10.2); Carbon Dioxide 27 mmol/L (22-30); Chloride 75 mmol/L (98-107); Glucose 187 mg/dL (74-99); Magnesium 1.1 mg/dL (1.6-2.3); Non-African American GFR(CKD) 90 (>60 ml/min/1.73 sqM); Sodium 120 mmol/L (137-145); Total Protein 6.9 g/dL (6.3-8.2)
[2022-05-08 12:35] LABS: ALT 60 U/L (4-34); Potassium 1.8 mmol/L (3.5-5.1); Total Bilirubin 15.5 mg/dL (0.2-1.3)
[2022-05-08 12:36] LABS: INR 4.3 (<1.2); Prothrombin Time 42.9 sec (9.0-12.0)
[2022-05-08] MEDS ORDERED: cefTRIAXone IN SWFI 1,000 MG/10 ML SYRINGE IVP STA (12:38)
[2022-05-08] MEDS ORDERED: CEFEPIME 2 GM in SODIUM CHLORIDE 0.9% 100 ML IVPB STA (12:40)
[2022-05-08] MEDS ORDERED: VANCOMYCIN IV PER PHARMACY 1 EACH MISC MISCELLANE PRN (12:40)
[2022-05-08] MEDS ORDERED: LACTULOSE 200 GM/300 ML (FROM 1/2 GAL JUG) RECTAL ONE (12:42)
[2022-05-08] MEDS ORDERED: MAGNESIUM SULFATE-D5W PMX 1 GM in DEXTROSE/WATER 1 100ML.BAG IVPB SCH (12:45)
[2022-05-08] MEDS ORDERED: VANCOMYCIN 1,000 MG in SODIUM CHLORIDE 0.9% 250 ML IVPB STA (12:45)
[2022-05-08] MEDS ORDERED: POTASSIUM CHLORIDE 20 MEQ in WATER FOR INJECTION 1 100ML.BAG IVPB SCH (13:00)
[2022-05-08 13:40] LABS: Appearance,Urine Cloudy (Clear); Bacteria,Urine Many /hpf; Bilirubin,Urine 4+ (Negative); Blood,Urine Negative (Negative); Color,Urine Dark Brown; Glucose,Urine (UA) Negative (Negative); Hyaline Casts,Urine 125 /lpf (0-2); Ketones,Urine Negative (Negative); Leukocyte Esterase,Urine Large (Negative); Mucus,Urine Rare /hpf; Nitrite,Urine Negative (Negative); Protein,Urine 1+ (Negative); RBC,Urine 1 /hpf (0-5); Specific Gravity,Urine 1.013 (1.001-1.035); Squamous Epithelial Cell,Urine 2 /hpf (0-4); Urobilinogen,Urine >12.0 mg/dL (<2.0); WBC,Urine 33 /hpf (0-5)
[2022-05-08 14:08] VITALS: BP 99/57; PULSE 120; RESP 22
[2022-05-09] MEDS ORDERED: VANCOMYCIN 1,000 MG in SODIUM CHLORIDE 0.9% 250 ML IVPB SCH (02:00)
== END 2022-05-08 14:20 | disposition other institution (70) ==
LOC: EC 10:50
DX: E87.6 Hypokalemia (principal); K72.90 Hepatic failure, unspecified without coma; E07.9 Disorder of thyroid, unspecified; I10 Essential (primary) hypertension; Z87.891 Personal history of nicotine dependence; Z79.890 Hormone replacement therapy
CPT/HCPCS: 36415; 93005; 80053; 82140; 82248; 83605; 83735; 85025; 85610; 85730; 81001; 87040; 80320; 87086; 99291; 96365; 96368; J3370; J3480; J0692; J3475